=== PATIENT | female | born 1950 | race Caucasian/White ===

== ENCOUNTER 2020-04-05 09:23 | Inpatient (IN) | payer MEDICARE, SELFPAY ==
[2020-04-05] VITALS (12 sets, daily range): BP systolic 113–140; BP diastolic 46–77; PULSE 102–117; RESP 18–26; TEMP 36.6–37; O2SAT 88–97; BMI 20.3
--- NOTE | 2020-04-05 09:49 | ECG_ITS ---
Test Reason : SOB Blood Pressure : / mmHG Vent. Rate : 110 BPM Atrial Rate : 110 BPM P-R Int : 156 ms QRS Dur : 070 ms QT Int : 328 ms P-R-T Axes : 074 050 068 degrees QTc Int : 443 ms Sinus tachycardia Biatrial enlargement RSR' pattern in V1 Abnormal ECG When compared with ECG of 16-AUG-2019 11:55, No significant change was found Referred By: Naila Bob Electronically Signed By:RENEE MARTINEZ MD
--- NOTE | 2020-04-05 09:49 | XR_ITS ---
EXAMINATION: XR CHEST CLINICAL INFORMATION: Shortness of breath COMPARISON: Previous chest x-ray and CT scan most recent July 2019 TECHNIQUE: Frontal view of the chest was obtained. FINDINGS: The cardiac and mediastinal contours are stable. There are emphysematous changes. There is airspace disease at the right lung base suggestive of a pneumonia. There are increased markings seen in the left upper lung overlying the inferior left scapula that appear similar to previous exams and may represent chronic changes. There is no pleural effusion or pneumothorax. There is curvature of the lower thoracic spine to the right. IMPRESSION: Airspace disease at the right lung base suggestive of pneumonia.
[2020-04-05] MEDS: Magnesium Sulfate/H2O 2 GM/50 ML PIGGYBACK IV (10:00)
[2020-04-05] MEDS: methylPREDNISolone Sod Succ/PF 125 MG/2 ML VIAL IVPUSH (10:00)
--- NOTE | 2020-04-05 10:00 | ED_ITS ---
HPI - SOB/Dyspnea General Chief Complaint: Dyspnea Stated Complaint: flu symptoms Time Seen by Provider: 04/05/20 09:35 Source: patient Mode of arrival: ambulatory Limitations: no limitations History of Present Illness HPI Narrative: 69-year-old female with a past medical history of depression, COPD, history of polysubstance abuse/alcohol use here with shortness of breath for the last week with productive cough with brown sputum, body aches, chills, subjective fevers. Denies sick contact or recent travel. MD elicited complaint: shortness of breath, cough and pain with inspiration Pertinent past history: COPD Onset (ago): week(s) ( One week) Timing: constant Severity: moderate Exacerbating factors: lying flat, exertion, movement and coughing Relieving factors: oxygen and rest Known history of: COPD Associated symptoms: fever, cough and sputum production Treatment prior to arrival: none Related Data Previous Rx's Medication Instructions Recorded quetiapine 50 mg tablet 50 mg PO BEDTIME #30 tab 03/29/20 albuterol sulfate 90 mcg/actuation 2 puff INHALATION Q4H PRN #18 g 03/31/20 aerosol inhaler buprenorphine 8 mg-naloxone 2 mg 2 film SUBLINGUAL DAILY 5 Days #10 04/01/20 sublingual film ea Allergies Allergy/AdvReac Type Severity Reaction Status Date / Time No Known Allergies Allergy Unverified 03/10/20 19:47 [No Known Allergies*] Review of Systems Review of Systems: Yes all other systems are reviewed and are negative Constitutional: Constitutional: Reports no additional constitutional complaints, Reports body ache(s), Reports chills, Reports fever(s), Denies headache(s) and Denies weakness Eyes: Eyes: Reports no additional eye complaints and Denies change in vision ENT: Reports system reviewed and no additional complaints, except as documented, Denies dizziness, Denies headache(s), Denies nasal congestion, Denies nasal discharge and Denies neck pain Cardiovascular: Cardiovascular: Reports no additional cardiovascular complaints, Reports chest pain ( pain with deep breathing), Denies leg edema, Reports dyspnea and Reports dyspnea on exertion Respiratory: Respiratory: Reports no additional respiratory complaints, Reports cough, Reports dyspnea and Reports dyspnea on exertion Gastrointestinal: Gastrointestinal: Reports no additional gastrointestinal complaints, Denies abdominal pain, Denies diarrhea, Denies nausea and Denies vomiting Genitourinary: Genitourinary: Reports no additional female genitourinary complaints and Denies urinary incontinence Musculoskeletal: Musculoskeletal: Reports no additional musculoskeletal complaints, Denies back pain, Denies arthralgias, Denies joint swelling, Denies neck pain, Denies numbness and Denies tingling Integumentary/Breasts: Skin/Breast: Reports system reviewed and no additional complaints, except as docu and Denies rash Neurologic: Reports system reviewed and no additional complaints, except as documented, Denies Abnormal speech present, Denies dizziness, Denies headache(s), Denies numbness, Denies tingling and Denies weakness [facility] Past Medical History Attestation statement: The following information was validated with the patient. Source: nursing notes reviewed Medical History (Updated 04/05/20 @ 12:51 by Inga Post NP) Breast cancer Chronic pain COPD (chronic obstructive pulmonary disease) Depression Fibromyalgia Substance abuse Surgical History (Updated 04/05/20 @ 12:47 by Inga Post NP) H/O mastectomy Social History Social History (Updated 04/05/20 @ 12:49 by Inga Post NP) Alcohol intake: current Smoking Status: Current every day smoker Packs Per Day: 1 Cigarettes Per Day: 20.0 Substance Use Type: Heroin and Other Substance Use Type Other:: fentanyl Advance Directives: Yes Advance Directives Information Provided: Yes Advance Directives on File: No Physical Exam Vital Signs: Vital Signs: Vital Signs Temp Pulse Resp BP Pulse Ox 04/05/20 12:39 98.5 F 112 H 19 132/46 L 04/05/20 11:28 117 H 25 H 128/46 L 97 04/05/20 09:35 98.6 F 117 H 26 H 114/62 90 L Body Mass Index 20.3 Const: Other: sitting upright on the bed, leaning forward General: cooperative, healthy appearing, comfortable and in distress ( mild increase work of breathing, speaking short sentences) Orientation/consciousness: patient oriented x3 Limitations: no limitations HENMT: Head: Yes normal to inspection Ears: hearing grossly normal bilaterally General nose exam: Normal external nose present Face and sinus: Yes normal facial exam Mouth: Normal oral and palatal mucosa present Throat: Yes posterior oropharynx normal Eyes: General: appearance normal, both eyes and all related structures Pupils: Equal, round and reactive pupils present Neck: Neck: Yes normal visual inspection Chest: Chest palpation & inspection: normal inspection of the chest Resp: Other: expiratory wheezing bilaterally with diminished breath sounds in the bases posteriorly Effort & Inspection: normal respiratory effort Auscultation: clear to auscultation bilaterally Cardio: Rate: tachycardic Rhythm: regular rhythm Peripheral pulses: Peripheral pulses 2+ throughout GI: Inspection: Yes normal to inspection Palpation (GI): Soft to palpation and nontender Auscultation: normal bowel sounds Back/Spine/Pelvis: Thoracic/Lumbar Spine: thoracic and lumbar spine normal to inspection Skin: General skin exam: no rashes or lesions noted Neuro: General: patient oriented x3, no focal motor deficits and normal sensation to monofilament Cranial nerves: Yes Equal, round and reactive pupils present Cognition (Neuro): normal cognition Speech: No Abnormal speech present Gait exam (Neuro): Normal gait present Motor exam (neuro): 5/5 motor strength present throughout Extrem: General: Yes normal to inspection Course Course Course Narrative: 69-year-old female with past medical history of COPD and polysubstance abuse here with flu-like symptoms including shortness of breath for the last week. On arrival patient has a room air saturation of 90% and is tachycardic with a respiratory rate in the 20s. Will need chest x-ray, labs including blood cultures/lactic acid, EKG, Respiratory panel including COVID testing, albuterol/solumedrol/magnesium. 1045- Chest x-ray consistent with a pneumonia. At this time infection suspected. Antibiotics ordered. 1145- Labs show a leukocytosis. Normal lactic acid. Patient continues to be tachypneic with a room air saturation 89-90%. She will need admission. Discussed with Inga ALLEN hospitalist who requested ABG. Request respiratory panel and rapid COVID swab prior to admission. 1300-No hypercarbia on ABG. Patient maintaining oxgyen saturation on 2LNC. Respiratory panel +rhinovirus, covid negative. Accepted admission to [facility] [place]. MDM - SOB/Dyspnea MDM Narrative Medical decision making narrative: SOB with flu liked symptoms x 1 week. Considered COPD exacerbation, viral infection (COVID), PNA, ACS, CHF. 1300- Chest x-ray consistent with pneumonia. Also likely COPD exacerbation with viral panel positive for rhinovirus. Less likely ACS with negative troponin and unremarkable EKG. Less likely CHF with mildly elevated BNP with no clinical signs or symptoms of fluid overload. Lab Data Result diagrams: 04/05/20 10:48 04/05/20 10:48 Labs: Lab Results 04/05/20 04/05/20 04/05/20 Range/Units 10:47 10:48 10:48 WBC 21.3 H (4.8-10.8) X10*3/uL RBC 4.28 (4.20-5.50) X10*6/uL Hgb 12.7 (12.0-16.0) g/dl Hct 39.7 (37-47) % MCV 92.8 (80-98) fL MCH 29.7 (27.0-33.0) pg MCHC 32.0 (31.0-35.0) g/dl RDW 14.8 (11.0-16.0) % Plt Count 257 (160-400) X10*3/uL MPV 8.4 L (9.4-12.3) fL Immature Gran % (Auto) 0.7 H (0.0-0.4) % Neut % (Auto) 65.9 (45-73) % Lymph % (Auto) 24.6 (20-40) % [place] % (Auto) 8.5 (2-11) % Eos % (Auto) 0.2 (0-4) % Baso % (Auto) 0.1 (0-2) % Lymph # (Auto) 5.3 H (1.2-4.9) X10*3/uL [place] # (Auto) 1.8 H (0.1-1.2) X10*3/uL Eos # (Auto) 0.1 (0.0-0.4) X10*3/uL Baso # (Auto) 0.0 (0.0-0.2) X10*3/uL Abs Immat Gran (auto) 0.14 H (0.00-0.03) X10*3/uL Absolute Neuts (auto) 14.0 H (2.0-8.3) X10*3/uL Absolute Nucleated RBC 0.000 (0.0-0.012) X10*3/uL Nucleated RBC % (auto) 0.0 (0.0-0.2) /100WBC Smear Tech's Comments VERIFIED PT 12.4 (10.8-13.0) SEC INR 1.0 (0.9-1.1) ABG pH (7.35-7.45) ABG pCO2 (32-45) mmhg ABG pO2 (83-108) mmhg ABG HCO3 (22-26) mmol/l ABG O2 Saturation % ABG Base Excess Oxygen Given Sodium (135-145) mmol/L Potassium (3.3-5.1) mmol/l Chloride (96-108) mmol/L Carbon Dioxide (22-29) mmol/L Anion Gap (12-20) BUN (9-16) mg/dL Creatinine (0.5-1.4) mg/dL Estim Creat Clear Calc Estimated GFR Random Glucose (60-115) mg/dL Lactic Acid 0.6 (0.5-2.0) mmol/L Calcium (8.4-10.2) mg/dL Magnesium (1.6-2.6) mg/dL Total Bilirubin (0.0-1.0) mg/dL Direct Bilirubin (0.0-0.5) mg/dL AST (5-31) U/L ALT (0-31) U/L Alkaline Phosphatase (39-117) U/L Troponin I High Sens (<3.5-17.0) ng/L B-Natriuretic Peptide (<100) pg/mL Total Protein (6.5-8.0) g/dL Albumin (3.5-5.0) g/dL Urine Color Urine Appearance Urine pH (5.0-8.0) Ur Specific [place] (1.005-1.025) Urine Protein (NEG-TRACE) MG/DL Urine Glucose (UA) (NEG) MG/DL Urine Ketones (NEG) MG/DL Urine Blood (NEG) Urine Nitrite (NEG) Ur Leukocyte Esterase (NEG) Urine RBC (0) /HPF Urine WBC (0-4) /HPF Ur Squamous Epith Cells /LPF Urine Bacteria /LPF Respiratory Panel Zee Adenovirus (Rapid PCR) (Not Detect.) B.pert (TEM-PCR) (Not Detect.) B.parapertussis DNA PCR (Not Detect.) C. pneumoniae DNA (PCR) (Not Detect.) Coronavirus OC43 (PCR) (Not Detect.) Coronavirus HKU1 (PCR) (Not Detect.) Coronavirus 229E (PCR) (Not Detect.) Coronavirus NL63 (PCR) (Not Detect.) Human Metapneumovir PCR (Not Detect.) Influenza A (RT-PCR) (Not Detect.) Influenza B (RT-PCR) (Not Detect.) M. pneumoniae (PCR) (Not Detect.) Parainfluenza 1 (PCR) (Not Detect.) Parainfluenza 2 (PCR) (Not Detect.) Parainfluenza 3 (PCR) (Not Detect.) Parainfluenza 4 (PCR) (Not Detect.) RSV (PCR) (Not Detect.) Entero/Rhino (PCR) (Not Detect.) SARS-CoV-2 RNA (RT-PCR) (Not Detect.) 04/05/20 04/05/20 04/05/20 Range/Units 10:48 10:48 11:38 WBC (4.8-10.8) X10*3/uL RBC (4.20-5.50) X10*6/uL Hgb (12.0-16.0) g/dl Hct (37-47) % MCV (80-98) fL MCH (27.0-33.0) pg MCHC (31.0-35.0) g/dl RDW (11.0-16.0) % Plt Count (160-400) X10*3/uL MPV (9.4-12.3) fL Immature Gran % (Auto) (0.0-0.4) % Neut % (Auto) (45-73) % Lymph % (Auto) (20-40) % [place] % (Auto) (2-11) % Eos % (Auto) (0-4) % Baso % (Auto) (0-2) % Lymph # (Auto) (1.2-4.9) X10*3/uL [place] # (Auto) (0.1-1.2) X10*3/uL Eos # (Auto) (0.0-0.4) X10*3/uL Baso # (Auto) (0.0-0.2) X10*3/uL Abs Immat Gran (auto) (0.00-0.03) X10*3/uL Absolute Neuts (auto) (2.0-8.3) X10*3/uL Absolute Nucleated RBC (0.0-0.012) X10*3/uL Nucleated RBC % (auto) (0.0-0.2) /100WBC Smear Tech's Comments PT (10.8-13.0) SEC INR (0.9-1.1) ABG pH (7.35-7.45) ABG pCO2 (32-45) mmhg ABG pO2 (83-108) mmhg ABG HCO3 (22-26) mmol/l ABG O2 Saturation % ABG Base Excess Oxygen Given Sodium 134 L (135-145) mmol/L Potassium 4.2 (3.3-5.1) mmol/l Chloride 101 (96-108) mmol/L Carbon Dioxide 24 (22-29) mmol/L Anion Gap 13 (12-20) BUN 23 H (9-16) mg/dL Creatinine 0.93 (0.5-1.4) mg/dL Estim Creat Clear Calc 46.3 Estimated GFR 60 Random Glucose 116 H (60-115) mg/dL Lactic Acid (0.5-2.0) mmol/L Calcium 8.6 (8.4-10.2) mg/dL Magnesium 2.9 H (1.6-2.6) mg/dL Total Bilirubin 0.5 (0.0-1.0) mg/dL Direct Bilirubin 0.2 (0.0-0.5) mg/dL AST 18 (5-31) U/L ALT 15 (0-31) U/L Alkaline Phosphatase 169 H (39-117) U/L Troponin I High Sens < 3.5 (<3.5-17.0) ng/L B-Natriuretic Peptide 118 H (<100) pg/mL Total Protein 6.6 (6.5-8.0) g/dL Albumin 3.4 L (3.5-5.0) g/dL Urine Color YELLOW Urine Appearance CLOUDY Urine pH 5.5 (5.0-8.0) Ur Specific [place] 1.010 (1.005-1.025) Urine Protein 1+ H (NEG-TRACE) MG/DL Urine Glucose (UA) NEG (NEG) MG/DL Urine Ketones NEG (NEG) MG/DL Urine Blood 2+ H (NEG) Urine Nitrite POS H (NEG) Ur Leukocyte Esterase 2+ H (NEG) Urine RBC 1-4 (0) /HPF Urine WBC 50-75 H (0-4) /HPF Ur Squamous Epith Cells TRACE /LPF Urine Bacteria 3+ /LPF Respiratory Panel Zee Adenovirus (Rapid PCR) (Not Detect.) B.pert (TEM-PCR) (Not Detect.) B.parapertussis DNA PCR (Not Detect.) C. pneumoniae DNA (PCR) (Not Detect.) Coronavirus OC43 (PCR) (Not Detect.) Coronavirus HKU1 (PCR) (Not Detect.) Coronavirus 229E (PCR) (Not Detect.) Coronavirus NL63 (PCR) (Not Detect.) Human Metapneumovir PCR (Not Detect.) Influenza A (RT-PCR) (Not Detect.) Influenza B (RT-PCR) (Not Detect.) M. pneumoniae (PCR) (Not Detect.) Parainfluenza 1 (PCR) (Not Detect.) Parainfluenza 2 (PCR) (Not Detect.) Parainfluenza 3 (PCR) (Not Detect.) Parainfluenza 4 (PCR) (Not Detect.) RSV (PCR) (Not Detect.) Entero/Rhino (PCR) (Not Detect.) SARS-CoV-2 RNA (RT-PCR) (Not Detect.) 04/05/20 04/05/20 Range/Units 11:38 11:59 WBC (4.8-10.8) X10*3/uL RBC (4.20-5.50) X10*6/uL Hgb (12.0-16.0) g/dl Hct (37-47) % MCV (80-98) fL MCH (27.0-33.0) pg MCHC (31.0-35.0) g/dl RDW (11.0-16.0) % Plt Count (160-400) X10*3/uL MPV (9.4-12.3) fL Immature Gran % (Auto) (0.0-0.4) % Neut % (Auto) (45-73) % Lymph % (Auto) (20-40) % [place] % (Auto) (2-11) % Eos % (Auto) (0-4) % Baso % (Auto) (0-2) % Lymph # (Auto) (1.2-4.9) X10*3/uL [place] # (Auto) (0.1-1.2) X10*3/uL Eos # (Auto) (0.0-0.4) X10*3/uL Baso # (Auto) (0.0-0.2) X10*3/uL Abs Immat Gran (auto) (0.00-0.03) X10*3/uL Absolute Neuts (auto) (2.0-8.3) X10*3/uL Absolute Nucleated RBC (0.0-0.012) X10*3/uL Nucleated RBC % (auto) (0.0-0.2) /100WBC Smear Tech's Comments PT (10.8-13.0) SEC INR (0.9-1.1) ABG pH 7.25 L (7.35-7.45) ABG pCO2 56 H (32-45) mmhg ABG pO2 63 L (83-108) mmhg ABG HCO3 24 (22-26) mmol/l ABG O2 Saturation 91.1 % ABG Base Excess -3.7 Oxygen Given . Sodium (135-145) mmol/L Potassium (3.3-5.1) mmol/l Chloride (96-108) mmol/L Carbon Dioxide (22-29) mmol/L Anion Gap (12-20) BUN (9-16) mg/dL Creatinine (0.5-1.4) mg/dL Estim Creat Clear Calc Estimated GFR Random Glucose (60-115) mg/dL Lactic Acid (0.5-2.0) mmol/L Calcium (8.4-10.2) mg/dL Magnesium (1.6-2.6) mg/dL Total Bilirubin (0.0-1.0) mg/dL Direct Bilirubin (0.0-0.5) mg/dL AST (5-31) U/L ALT (0-31) U/L Alkaline Phosphatase (39-117) U/L Troponin I High Sens (<3.5-17.0) ng/L B-Natriuretic Peptide (<100) pg/mL Total Protein (6.5-8.0) g/dL Albumin (3.5-5.0) g/dL Urine Color Urine Appearance Urine pH (5.0-8.0) Ur Specific [place] (1.005-1.025) Urine Protein (NEG-TRACE) MG/DL Urine Glucose (UA) (NEG) MG/DL Urine Ketones (NEG) MG/DL Urine Blood (NEG) Urine Nitrite (NEG) Ur Leukocyte Esterase (NEG) Urine RBC (0) /HPF Urine WBC (0-4) /HPF Ur Squamous Epith Cells /LPF Urine Bacteria /LPF Respiratory Panel Zee See Note Adenovirus (Rapid PCR) Not Detected (Not Detect.) B.pert (TEM-PCR) Not Detected (Not Detect.) B.parapertussis DNA PCR Not Detected (Not Detect.) C. pneumoniae DNA (PCR) Not Detected (Not Detect.) Coronavirus OC43 (PCR) Not Detected (Not Detect.) Coronavirus HKU1 (PCR) Not Detected (Not Detect.) Coronavirus 229E (PCR) Not Detected (Not Detect.) Coronavirus NL63 (PCR) Not Detected (Not Detect.) Human Metapneumovir PCR Not Detected (Not Detect.) Influenza A (RT-PCR) Not Detected (Not Detect.) Influenza B (RT-PCR) Not Detected (Not Detect.) M. pneumoniae (PCR) Not Detected (Not Detect.) Parainfluenza 1 (PCR) Not Detected (Not Detect.) Parainfluenza 2 (PCR) Not Detected (Not Detect.) Parainfluenza 3 (PCR) Not Detected (Not Detect.) Parainfluenza 4 (PCR) Not Detected (Not Detect.) RSV (PCR) Not Detected (Not Detect.) Entero/Rhino (PCR) Detected A (Not Detect.) SARS-CoV-2 RNA (RT-PCR) Not Detected (Not Detect.) ECG Data Attestation: I personally reviewed and interpreted this ECG as follows: ECG interpretation date: 04/05/20 ECG interpretation time: 09:51 Prior ECG tracings: not available for review Interpretation: sinus tachycardia with a rate of 110. normal p.r.. Normal QRS. Normal QT. NO ST changes Discharge Plan Discharge Clinical Impression: COPD (chronic obstructive pulmonary disease), Pneumonia, Leukocytosis, Hypoxia Patient Disposition: Admitted As Inpatient
[2020-04-05] MEDS: Albuterol/Iprat 2.5/0.5MG 3 ML AMPUL.NEB INHALE ×2 (10:11→19:48)
[2020-04-05] MEDS: LORazepam 2 MG/ML VIAL 0.5 MG IVPUSH (10:44)
[2020-04-05] MEDS: 0.9 % Sodium Chloride 1,000 ML 999 ML IVCONT (10:44)
[2020-04-05 11:04] LABS: Prothrombin Time 12.4 SEC (10.8-13.0)
[2020-04-05 11:07] LABS: Basophils Percent Auto 0.1 % (0-2); Eosinophils Absolute Auto 0.1 X10*3/uL (0.0-0.4); Eosinophils Percent Auto 0.2 % (0-4); Hematocrit 39.7 % (37-47); Hemoglobin 12.7 g/dl (12.0-16.0); Imm Gran Abs Auto 0.14 X10*3/uL (0.00-0.03); Imm Gran Pct Auto 0.7 % (0.0-0.4); Lymphocytes Absolute Auto 5.3 X10*3/uL (1.2-4.9); Lymphocytes Percent Auto 24.6 % (20-40); MANUAL DIFF FLAG SCAN; Mean Corpuscular Hemoglobin 29.7 pg (27.0-33.0); Mean Corpuscular Volume 92.8 fL (80-98); Mean Platelet Volume 8.4 fL (9.4-12.3); Monocytes Absolute Auto 1.8 X10*3/uL (0.1-1.2); Monocytes Percent Auto 8.5 % (2-11); Neutrophils Percent Auto 65.9 % (45-73); Platelet Count 257 X10*3/uL (160-400); Red Blood Count 4.28 X10*6/uL (4.20-5.50); Red Cell Distribution Width 14.8 % (11.0-16.0); SCAN SMEAR FLAG 1; White Blood Count 21.3 X10*3/uL (4.8-10.8)
[2020-04-05 11:18] LABS: Lactic Acid 0.6 mmol/L (0.5-2.0)
[2020-04-05 11:23] LABS: Alanine Aminotransferase 15 U/L (0-31); Albumin Level 3.4 g/dL (3.5-5.0); Alkaline Phosphatase 169 U/L (39-117); Anion Gap 13 (12-20); Aspartate Amino Transferase 18 U/L (5-31); Bilirubin Direct 0.2 mg/dL (0.0-0.5); Bilirubin Total 0.5 mg/dL (0.0-1.0); Blood Urea Nitrogen 23 mg/dL (9-16); Calcium 8.6 mg/dL (8.4-10.2); Carbon Dioxide 24 mmol/L (22-29); Chloride 101 mmol/L (96-108); Creatinine Clr Calc Pharmacy 46.3; Estimated Glomerular Filt Rate 60; Glucose Random 116 mg/dL (60-115); Magnesium 2.9 mg/dL (1.6-2.6); Potassium 4.2 mmol/l (3.3-5.1); Sodium 134 mmol/L (135-145); Total Protein 6.6 g/dL (6.5-8.0)
[2020-04-05] MEDS: cefTRIAXone sodium 2 GM in 0.9 % Sodium Chloride 50 ML IV (11:23)
[2020-04-05 11:29] LABS: B Type Natriuretic Peptide 118 pg/mL (<100); Troponin-I High Sensitivity < 3.5 ng/L (<3.5-17.0)
[2020-04-05 11:30] LABS: SLIDE REVIEW VERIFIED
[2020-04-05] MEDS: Azithromycin 500 MG in 0.9 % Sodium Chloride 250 ML 250 MG IV (11:39)
[2020-04-05 11:53] LABS: Adenovirus PCR Not Detected (Not Detect.); Bordetella parapertussis PCR Not Detected (Not Detect.); Bordetella pertussis PCR Not Detected (Not Detect.); Chlamydia pneumoniae PCR Not Detected (Not Detect.); Coronavirus 229E PCR Not Detected (Not Detect.); Coronavirus HKU1 PCR Not Detected (Not Detect.); Coronavirus NL63 PCR Not Detected (Not Detect.); Coronavirus OC43 PCR Not Detected (Not Detect.); Human metapneumovirus PCR Not Detected (Not Detect.); Influenza A PCR Not Detected (Not Detect.); Influenza B PCR Not Detected (Not Detect.); Mycoplasma pneumoniae PCR Not Detected (Not Detect.); Parainfluenza 1 PCR Not Detected (Not Detect.); Parainfluenza 2 PCR Not Detected (Not Detect.); Parainfluenza 3 PCR Not Detected (Not Detect.); Parainfluenza 4 PCR Not Detected (Not Detect.); RSV PCR Not Detected (Not Detect.); SARS-CoV-2 PCR Not Detected (Not Detect.)
[2020-04-05 11:58] LABS: Glucose Urine UA NEG (NEG); Leukocyte Esterase Urine 2+ (NEG); Nitrite Urine POS (NEG); PH 5.5 (5.0-8.0); Urine Blood 2+ (NEG); Urine Ketones NEG (NEG); Urine Protein 1+ MG/DL (NEG-TRACE)
[2020-04-05 12:02] LABS: Appearance Urine CLOUDY; Color Urine YELLOW
[2020-04-05 12:19] LABS: ABG PCO2 56 mmhg (32-45); Base Excess ABG -3.7; HCO3 ABG 24 mmol/l (22-26); Oxygen Saturation ABG 91.1 %; PO2 ABG 63 mmhg (83-108); pH ABG 7.25 (7.35-7.45)
[2020-04-05 12:30] LABS: WBC Urine 50-75 /HPF (0-4)
[2020-04-05 12:31] LABS: Bacteria Urine 3+ /LPF; Squamous Epithelial Cell Urine TRACE /LPF
--- NOTE | 2020-04-05 12:38 | P.HPIM_ITS ---
History of Present Illness Date of Service: 04/05/20 <Inga Post NP - Last Filed: 04/05/20 14:34> Chief Complaint: Shortness of breath <Inga Post NP - Last Filed: 04/05/20 14:34> 69 year old women presenting to the ED with increased shortness of breath over the last week. She reported cough with brown phlegm. She denied fever, chills, nausea, vomiting, diarrhea. She also reported some left-sided chest pain that was sharp in nature without any radiation or other associated symptoms that would come and go over the last several days. She denied any recent illness, sick contacts although she lives in a rooming house. She continues to smoke a pack cigarettes a day. She has a history of substance abuse and denies that she is using actively, is currently on Suboxone. Chest x-ray showed consolidation to right lung suggestive of pneumonia. She was noted to be tachycardic, white blood cell count 21.3. ABG was obtained which showed pH 7.25/56/63/24 with lowest oxygen saturation of 90%. Urinalysis was positive for UTI. She was given a dose of Solu-Medrol, albuterol, lorazepam, ceftriaxone, azithromycin and 1 L of IV fluid in the ER. She will be admitted for further management and treatment of community-acquired pneumonia, acute respiratory failure related to COPD exacerbation. <Inga Post NP - Last Filed: 04/05/20 14:34> Review of Systems Review of Systems: Denies any recent fever chills or decrease in appetite respiratory see HPI cardiovascular see HPI gastrointestinal denies any dysphagia abdominal pain nausea vomiting or diarrhea genitourinary denies any dysuria frequency or hematuria musculoskeletal denies any joint pain or swelling neuropsych denies any weakness or seizures all other systems reviewed are negative <Inga Post NP - Last Filed: 04/05/20 14:34> [facility] Medical History: Medical History Breast cancer Chronic pain COPD (chronic obstructive pulmonary disease) Depression Fibromyalgia Substance abuse <Inga Post NP - Last Filed: 04/05/20 14:34> Functional capacity: independent ambulation <Inga Post NP - Last Filed: 04/05/20 14:34> Pertinent family history: no cardiac disease <Inga Post NP - Last Filed: 04/05/20 14:34> Surgical History: Surgical History H/O mastectomy <Inga Post NP - Last Filed: 04/05/20 14:34> Social History: Social History Household Members: Family Housing: House Do you presently have visiting nurse or other home services: No Alcohol intake: never Smoking Status: Current every day smoker Tobacco Type: Cigarette Packs Per Day: 1 Cigarettes Per Day: 20.0 Years Smoked: 50 Smoked in Last 30 Days: Yes Patient Interested in Nicotine Replacement: Yes Patient Given Instructions on How to Stop Smoking: No Date Education Initiated: 04/05/20 Second Hand Smoke Exposure: Yes Use of substances other than those prescribed or required for medical reasons: No Substance Use Type: Heroin and Other Substance Use Type Other:: fentanyl Currently Displaying Signs/Symptoms of Drug Intoxication Withdrawal: No Have you been hit, kicked, punched, or otherwise hurt by someone within the past year? If so, by whom?: No Do you feel safe in your current relationship?: No Current Relationship Is there a partner from a previous relationship who is making you feel unsafe now?: No Are you made to feel afraid or neglected: No Advance Directives: Yes Advance Directives Information Provided: Yes Advance Directives on File: No Advance Directives Date on File: 04/05/20 Do you have thoughts of harming others: None Do you have a plan to hurt others: No Plan Recently lost weight without trying: Yes service: No <Inga Post NP - Last Filed: 04/05/20 14:34> Meds Allergies/Adverse reactions: Allergies Allergy/AdvReac Type Severity Reaction Status Date / Time No Known Allergies Allergy Unverified 03/10/20 19:47 [No Known Allergies*] <Inga Post NP - Last Filed: 04/05/20 14:34> Home medications: Home Medications Medication Instructions Recorded Confirmed Type duloxetine 20 mg PO DAILY 04/05/20 04/05/20 History trazodone 50 mg PO BEDTIME PRN 04/05/20 04/05/20 History <Inga Post NP - Last Filed: 04/05/20 14:34> Physical Exam Vital Signs and Narrative: Vital Signs: Last Vital Signs Temp 98.6 F 04/05/20 09:35 Pulse 117 H 04/05/20 11:28 Resp 25 H 04/05/20 11:28 BP 128/46 L 04/05/20 11:28 Pulse Ox 97 04/05/20 11:28 Body Mass Index 20.3 <Inga Post NP - Last Filed: 04/05/20 14:34> Appearing in no acute distress head is normocephalic atraumatic eyes pupils are PERRLA sclera is anicteric mouth throat mucous membranes are intact and moist neck is supple no lymphadenopathy, no JVD noted lung rhonchi, expiratory wheezes heart regular rhythm, tachycardic positive bowel sounds, abdomen is soft, nontender neuro patient is alert x3, no focal deficits <Inga Post NP - Last Filed: 04/05/20 14:34> Results Labs Labs: Laboratory Tests 04/05/20 04/05/20 04/05/20 10:47 10:48 10:48 WBC 21.3 H RBC 4.28 Hgb 12.7 Hct 39.7 MCV 92.8 MCH 29.7 MCHC 32.0 RDW 14.8 Plt Count 257 MPV 8.4 L Immature Gran % (Auto) 0.7 H Neut % (Auto) 65.9 Lymph % (Auto) 24.6 [place] % (Auto) 8.5 Eos % (Auto) 0.2 Baso % (Auto) 0.1 Lymph # (Auto) 5.3 H [place] # (Auto) 1.8 H Eos # (Auto) 0.1 Baso # (Auto) 0.0 Abs Immat Gran (auto) 0.14 H Absolute Neuts (auto) 14.0 H Absolute Nucleated RBC 0.000 Nucleated RBC % (auto) 0.0 Smear Tech's Comments VERIFIED PT 12.4 INR 1.0 ABG pH ABG pCO2 ABG pO2 ABG HCO3 ABG O2 Saturation ABG Base Excess Oxygen Given Sodium Potassium Chloride Carbon Dioxide Anion Gap BUN Creatinine Estim Creat Clear Calc Estimated GFR Random Glucose Lactic Acid 0.6 Calcium Magnesium Total Bilirubin Direct Bilirubin AST ALT Alkaline Phosphatase Troponin I High Sens B-Natriuretic Peptide Total Protein Albumin Urine Color Urine Appearance Urine pH Ur Specific [place] Urine Protein Urine Glucose (UA) Urine Ketones Urine Blood Urine Nitrite Ur Leukocyte Esterase Urine RBC Urine WBC Ur Squamous Epith Cells Urine Bacteria 04/05/20 04/05/20 04/05/20 10:48 10:48 11:38 WBC RBC Hgb Hct MCV MCH MCHC RDW Plt Count MPV Immature Gran % (Auto) Neut % (Auto) Lymph % (Auto) [place] % (Auto) Eos % (Auto) Baso % (Auto) Lymph # (Auto) [place] # (Auto) Eos # (Auto) Baso # (Auto) Abs Immat Gran (auto) Absolute Neuts (auto) Absolute Nucleated RBC Nucleated RBC % (auto) Smear Tech's Comments PT INR ABG pH ABG pCO2 ABG pO2 ABG HCO3 ABG O2 Saturation ABG Base Excess Oxygen Given Sodium 134 L Potassium 4.2 Chloride 101 Carbon Dioxide 24 Anion Gap 13 BUN 23 H Creatinine 0.93 Estim Creat Clear Calc 46.3 Estimated GFR 60 Random Glucose 116 H Lactic Acid Calcium 8.6 Magnesium 2.9 H Total Bilirubin 0.5 Direct Bilirubin 0.2 AST 18 ALT 15 Alkaline Phosphatase 169 H Troponin I High Sens < 3.5 B-Natriuretic Peptide 118 H Total Protein 6.6 Albumin 3.4 L Urine Color YELLOW Urine Appearance CLOUDY Urine pH 5.5 Ur Specific [place] 1.010 Urine Protein 1+ H Urine Glucose (UA) NEG Urine Ketones NEG Urine Blood 2+ H Urine Nitrite POS H Ur Leukocyte Esterase 2+ H Urine RBC 1-4 Urine WBC 50-75 H Ur Squamous Epith Cells TRACE Urine Bacteria 3+ 04/05/20 11:59 WBC RBC Hgb Hct MCV MCH MCHC RDW Plt Count MPV Immature Gran % (Auto) Neut % (Auto) Lymph % (Auto) [place] % (Auto) Eos % (Auto) Baso % (Auto) Lymph # (Auto) [place] # (Auto) Eos # (Auto) Baso # (Auto) Abs Immat Gran (auto) Absolute Neuts (auto) Absolute Nucleated RBC Nucleated RBC % (auto) Smear Tech's Comments PT INR ABG pH 7.25 L ABG pCO2 56 H ABG pO2 63 L ABG HCO3 24 ABG O2 Saturation 91.1 ABG Base Excess -3.7 Oxygen Given . Sodium Potassium Chloride Carbon Dioxide Anion Gap BUN Creatinine Estim Creat Clear Calc Estimated GFR Random Glucose Lactic Acid Calcium Magnesium Total Bilirubin Direct Bilirubin AST ALT Alkaline Phosphatase Troponin I High Sens B-Natriuretic Peptide Total Protein Albumin Urine Color Urine Appearance Urine pH Ur Specific [place] Urine Protein Urine Glucose (UA) Urine Ketones Urine Blood Urine Nitrite Ur Leukocyte Esterase Urine RBC Urine WBC Ur Squamous Epith Cells Urine Bacteria <Inga Post NP - Last Filed: 04/05/20 14:34> Assessment and Plan (1) Acute respiratory failure: Status: Acute <Inga Post NP - Last Filed: 04/05/20 14:34> (2) Community acquired pneumonia: Status: Acute <Inga Post NP - Last Filed: 04/05/20 14:34> (3) COPD exacerbation: Status: Acute <Inga Post NP - Last Filed: 04/05/20 14:34> (4) Sepsis: Status: Acute <Inga Post NP - Last Filed: 04/05/20 14:34> (5) UTI (urinary tract infection): Status: Acute <Inga Post NP - Last Filed: 04/05/20 14:34> 69-year-old woman admitted with sepsis related to community-acquired pneumonia, UTI and COPD exacerbation. Sepsis. Tachycardia, leukocytosis, normal lactic acid. Follow blood cultures. Acute respiratory failure. Multifactorial related to community-acquired pneumonia and COPD exacerbation. Continue treatment as below. Community-acquired pneumonia. Rocephin, azithromycin, continue supplemental oxygen. COPD exacerbation. Duo nebs, Solu-Medrol, supplemental oxygen as needed. Robitussin for cough. UTI. Rocephin. Follow urine culture. Substance abuse history. On Suboxone. Tobacco use. Nicotine replacement. Discussed smoking cessation. Depression. Continue home medications. DVT prophylaxis with Lovenox. Case discussed with Dr. Seaman Full code <Inga Post NP - Last Filed: 04/05/20 14:34>
[2020-04-05 12:52] LABS: Rhino/Enterovirus PCR Detected (Not Detect.)
--- NOTE | 2020-04-05 16:02 | P.EN_ITS ---
Event Note Event Note: Date of service: 04/05/20 Addendum to H and P by mid level I saw and examined the patient and participated in the burkett portion of the E/M service. I agree with the history and exam as documented by NETWORK ASSOCIATE.She comes with SOB, cough. Exam: cachectic, mary wheezes and rhonchi. Patient likely has COPD exa, CAP, negative covid. Will admit for IV Abx and bronchodilators, steroid. Otherwise, I agree with assessment and plan as outlined in the H and P.
--- NOTE | 2020-04-05 16:10 | PC.NURSE ---
cALLING IMC. ROOM STILL HAS A PATIENT IN IT. PT ON FLOOR LIKELT TO LEAVE AROUND [id number]. WAX SPECIALIST AWARE.
--- NOTE | 2020-04-05 16:16 | PC.NURSE ---
coarse wet crackles mary bases with decreased air movement. pt is alert. unlabored resp at rest. skin pwd. st on monitor. awaits transfer to floor
--- NOTE | 2020-04-05 16:20 | PC.NURSE ---
productive dark brown cough noted
--- NOTE | 2020-04-05 17:29 | PC.NURSE ---
rn to rn [facility] on [facility] [place].
[2020-04-05] MEDS: Azithromycin 500 MG TABLET PO (18:45)
[2020-04-05] MEDS: Enoxaparin Sodium 40 MG/0.4 ML SYRINGE SUBCUT (18:46)
[2020-04-05] MEDS: cefTRIAXone sodium 1 GM in 0.9 % Sodium Chloride 50 ML IV (18:48)
[2020-04-05] MEDS: QUEtiapine Fumarate 50 MG TABLET PO (21:12)
[2020-04-05] MEDS: 0.9 % Sodium Chloride Flush 3 ML SYRINGE IVFLUSH ×2 (21:13→23:29)
[2020-04-05] MEDS: Flu Vacc QS2020-21(6mos up)/PF 0.5 ML SYRINGE IM (23:28)
[2020-04-06] VITALS (7 sets, daily range): BP systolic 127–154; BP diastolic 54–82; PULSE 93–105; RESP 19–25; TEMP 35.8–37.2; O2SAT 89–94
[2020-04-06 06:23] LABS: MANUAL DIFF FLAG NO
[2020-04-06 06:46] LABS: Basophils Percent Auto 0.1 % (0-2); Hematocrit 36.1 % (37-47); Hemoglobin 11.6 g/dl (12.0-16.0); Imm Gran Abs Auto 0.08 X10*3/uL (0.00-0.03); Imm Gran Pct Auto 0.6 % (0.0-0.4); Lymphocytes Absolute Auto 3.7 X10*3/uL (1.2-4.9); Mean Corpuscular HGB Conc 32.1 g/dl (31.0-35.0); Mean Corpuscular Hemoglobin 29.7 pg (27.0-33.0); Mean Corpuscular Volume 92.3 fL (80-98); Mean Platelet Volume 9.1 fL (9.4-12.3); Monocytes Absolute Auto 0.4 X10*3/uL (0.1-1.2); Monocytes Percent Auto 3.4 % (2-11); Neutrophils Absolute Auto 8.9 X10*3/uL (2.0-8.3); Neutrophils Percent Auto 67.9 % (45-73); Platelet Count 283 X10*3/uL (160-400); Red Blood Count 3.91 X10*6/uL (4.20-5.50); Red Cell Distribution Width 14.8 % (11.0-16.0); White Blood Count 13.1 X10*3/uL (4.8-10.8)
[2020-04-06 06:59] LABS: Anion Gap 11 (12-20); Blood Urea Nitrogen 30 mg/dL (9-16); Calcium 8.5 mg/dL (8.4-10.2); Carbon Dioxide 28 mmol/L (22-29); Chloride 105 mmol/L (96-108); Creatinine Clr Calc Pharmacy 54.5; Estimated Glomerular Filt Rate > 60; Glucose Fasting 134 mg/dL (60-99); Potassium 4.9 mmol/l (3.3-5.1); Sodium 139 mmol/L (135-145)
[2020-04-06] MEDS: Albuterol/Iprat 2.5/0.5MG 3 ML AMPUL.NEB INHALE ×3 (07:49→16:21)
[2020-04-06] MEDS: DULoxetine HCl 20 MG CAPSULE.DR PO (09:00)
[2020-04-06] MEDS: 0.9 % Sodium Chloride Flush 3 ML SYRINGE IVFLUSH ×3 (09:01→21:18)
[2020-04-06] MEDS: Buprenorphine/Naloxone 8/2 mg FILM 2 FILM SUBLINGUAL (09:01)
[2020-04-06] MEDS: guaiFENesin DM 100/10/5 ML 5 ML SYRUP PO (09:07)
--- NOTE | 2020-04-06 11:19 | HO.PM.IMPN ---
Subjective Subjective Date of Service: 04/06/20 Interval History: Seen in follow up for acute copd exacerbation with PNA.She fees little better than yeser Review of Systems Card: no chest pain GI: No n/v Resp: Muscular/sk: hip pain Physical Exam Vital Signs: Vital Signs: Vital Signs Temp Pulse Resp BP Pulse Ox 04/06/20 07:12 97.1 F 94 20 138/62 91 L 04/06/20 03:22 97.6 F 100 20 144/82 H 94 04/05/20 23:17 98.0 F 108 H 20 113/65 94 04/05/20 20:00 97.8 F 105 H 20 140/56 H 92 04/05/20 18:25 98.6 F 103 H 20 139/61 91 L 04/05/20 17:28 94 04/05/20 16:33 93 04/05/20 16:28 88 L 04/05/20 16:15 98.0 F 102 H 18 120/77 92 04/05/20 14:38 94 04/05/20 12:39 98.5 F 112 H 19 132/46 L 04/05/20 11:28 117 H 25 H 128/46 L 97 Appearing in no acute distress head is normocephalic atraumatic eyes pupils are PERRLA sclera is anicteric mouth throat mucous membranes are intact and moist neck is supple no lymphadenopathy, no JVD noted lung rhonchi, expiratory wheezes--but less than yesterday heart regular rhythm, tachycardic positive bowel sounds, abdomen is soft, nontender neuro patient is alert x3, no focal deficits Objective Data Current Medications Generic Name Dose Route Start Last Admin Trade Name Amira PRN Reason Stop Dose Admin Acetaminophen 650 mg 04/05/20 18:25 Acetaminophen 325 Mg Tablet PO Q6H PRN Pain, Mild (Pain Scale 1-3) Albuterol/Ipratropium 3 ml 04/05/20 18:25 04/06/20 11:16 Albuterol/Iprat 2.5/0.5mg 3 Ml Ampul.Neb INHALE 3 ml RQ4H WHILE AWAKE ANDREW Administration Azithromycin 500 mg 04/05/20 18:25 04/05/20 18:45 Azithromycin 500 Mg Tablet PO 500 mg Q24H ANDREW Administration Buprenorphine/Naloxone 2 film 04/06/20 09:00 04/06/20 09:01 Buprenorphine/Naloxone 8/2 Mg Film SUBLINGUAL 2 film DAILY ANDREW Administration Duloxetine HCl 20 mg 04/06/20 09:00 04/06/20 09:00 Duloxetine Hcl 20 Mg Capsule.Dr PO 20 mg DAILY ANDREW Administration Enoxaparin Sodium 40 mg 04/05/20 18:25 04/05/20 18:46 Enoxaparin Sodium 40 Mg/0.4 Ml Syringe SUBCUT 40 mg Q24H ANDREW Administration Guaifenesin/Dextromethorphan 5 ml 04/05/20 18:25 04/06/20 09:07 Guaifenesin Dm 100/10/5 Ml 5 Ml Syrup PO 5 ml Q4H PRN Administration Cough Ceftriaxone Sodium 1 gm/ 50 mls @ 100 mls/hr 04/05/20 18:25 04/05/20 19:41 Sodium Chloride IV Infused Q24H ANDREW Infusion Lorazepam 0.5 mg 04/05/20 10:37 04/05/20 10:44 Lorazepam 2 Mg/Ml Vial IVPUSH 0.5 mg Q2H PRN Administration anxiety/restlessness Methylprednisolone Sodium Succinate 40 mg 04/05/20 18:25 04/06/20 10:25 Methylprednisolone Sod Succ/Pf 40 Mg/Ml Vial IVPUSH 40 mg Q8H ANDREW Administration Ondansetron HCl 4 mg 04/05/20 18:25 Ondansetron Hcl 4 Mg/2 Ml Vial IVPUSH Q8H PRN Nausea and Vomiting Pharmacy Consult 1 each 04/05/20 13:06 Consult Rx Perform Med Rec MISCELLANE ONCE PRN Consult order Quetiapine Fumarate 50 mg 04/05/20 21:00 04/05/20 21:12 Quetiapine Fumarate 50 Mg Tablet PO 50 mg BEDTIME ANDREW Administration Sodium Chloride 3 ml 04/05/20 18:25 04/06/20 09:01 0.9 % Sodium Chloride Flush 3 Ml Syringe IVFLUSH 3 ml QSHIFT ANDREW Administration Trazodone HCl 50 mg 04/05/20 18:25 Trazodone Hcl 50 Mg Tablet PO BEDTIME PRN Sleep Labs CBC & Chem 7: 04/06/20 05:40 04/06/20 05:40 Microbiology Microbiology Results: Microbiology 04/05/20 11:31 Urine clean catch - Clean Catch Midstream Urine Culture - Preliminary Gram negative faiza Assessment and Plan (1) Acute respiratory failure: Status: Acute (2) Community acquired pneumonia: Status: Acute (3) COPD exacerbation: Status: Acute (4) Sepsis: Status: Acute (5) UTI (urinary tract infection): Status: Acute Assessment and Plan: 69-year-old woman admitted with sepsis related to community-acquired pneumonia, UTI and COPD exacerbation. Sepsis. Tachycardia, leukocytosis, normal lactic acid. Follow blood cultures. Acute respiratory failure. Multifactorial related to community-acquired pneumonia and COPD exacerbation. Continue treatment as below. Community-acquired pneumonia. Improving. -continue Rocephin, azithromycin, continue supplemental oxygen as needed COPD exacerbation. Improving but not best -Duo nebs, Solu-Medrol, supplemental oxygen as needed. Robitussin for cough. UTI. Culture growing gram negative faiza -Rocephin. Follow urine culture. Substance abuse history. On Suboxone. Tobacco use. Nicotine replacement. Discussed smoking cessation.
--- NOTE | 2020-04-06 11:22 | MHC.CM.PN ---
unable to vivit pt called and left message for petr ortiz [phone] pts son to complete intake
[2020-04-06 12:24] LABS: Pt Ventilation O2% 2 L
[2020-04-06 12:27] LABS: pH ABG 7.32 (7.35-7.45)
[2020-04-06 12:28] LABS: ABG PCO2 56 mmhg (32-45); Base Excess ABG 1.1; HCO3 ABG 28 mmol/l (22-26); Oxygen Saturation ABG 91.3 %; PO2 ABG 64 mmhg (83-108)
--- NOTE | 2020-04-06 13:04 | MHC.PIE ---
P- Pt more drowsy than before, 02 sat between 89-92% on 2L, increased work of breathing, and RR 25. I- Catrachita BOOTHE. Ordered ABGs, respiratory tx. Continuous o2 monitor put on. E- ABGs: pH- 7.32, pCO2-56, pO2-64, HCO3- 28, O2 sat 91.3. Respiratory recommended bipap. catrachita BOOTHE, will continue to monitor
--- NOTE | 2020-04-06 13:49 | P.CONPL_ITS ---
History of Present Illness History of Present Illness Consult date: 04/06/20 Requesting physician: David Seaman Reason for consult: COPD Chief complaint: flu symptoms Narrative: 69-year-old lady, active 30+ pack-year smoker, with underlying history of COPD admitted on 04/05/2020 with increased shortness of breath over the course of the week preceding her admission. Patient also complains of wheezing and intermittent cough and productive of grayish phlegm. She denies fevers or chills. On ER evaluation she was noted to have exacerbation of underlying COPD with mild respiratory acidosis. She was started on treatment for community-acquired pneumonia and COPD exacerbation and admitted to general medical styles. Pulmonary consultation has been requested. Review of Systems Constitutional: Constitutional: Reports fatigue, Denies headache(s) and Denies weakness Eyes: Eyes: Denies blurry vision and Denies change in vision ENT: Denies dizziness and Denies headache(s) Cardiovascular: Cardiovascular: Denies chest pain at rest, Denies chest pain with activity and Reports dyspnea Respiratory: Respiratory: Reports cough, Reports dyspnea and Reports wheezing Gastrointestinal: Gastrointestinal: Denies constipation and Denies diarrhea Genitourinary: Genitourinary: Denies urinary incontinence and Denies urinary urgency Integumentary/Breasts: Skin/Breast: Denies rash Neurologic: Denies confusion, Denies dizziness, Denies headache(s) and Denies weakness Psychiatric: Psychiatric: Denies confusion Endocrine: Endocrine: Denies cold intolerance, Reports fatigue and Denies heat intolerance Hematologic/Lymphatic: Hematologic/Lymphatic: Denies easy bleeding and Denies easy bruising Allergic/Immunologic: Allergic/Immunologic: Reports wheezing PMFSH Past Medical History Medical History Breast cancer Chronic pain COPD (chronic obstructive pulmonary disease) Depression Fibromyalgia Substance abuse Functional capacity: independent ambulation Surgical History Surgical History H/O mastectomy Social History Social History Household Members: Family Housing: House Do you presently have visiting nurse or other home services: No Alcohol intake: never Smoking Status: Current every day smoker Tobacco Type: Cigarette Packs Per Day: 1 Cigarettes Per Day: 20.0 Years Smoked: 50 Smoked in Last 30 Days: Yes Patient Interested in Nicotine Replacement: Yes Patient Given Instructions on How to Stop Smoking: No Date Education Initiated: 04/05/20 Second Hand Smoke Exposure: Yes Use of substances other than those prescribed or required for medical reasons: No Substance Use Type: Heroin and Other Substance Use Type Other:: fentanyl Currently Displaying Signs/Symptoms of Drug Intoxication Withdrawal: No Have you been hit, kicked, punched, or otherwise hurt by someone within the past year? If so, by whom?: No Do you feel safe in your current relationship?: No Current Relationship Is there a partner from a previous relationship who is making you feel unsafe now?: No Are you made to feel afraid or neglected: No Advance Directives: Yes Advance Directives Information Provided: Yes Advance Directives on File: No Advance Directives Date on File: 04/05/20 Do you have thoughts of harming others: None Do you have a plan to hurt others: No Plan Recently lost weight without trying: Yes service: No Meds Allergies Allergy/AdvReac Type Severity Reaction Status Date / Time No Known Allergies Allergy Unverified 03/10/20 19:47 [No Known Allergies*] Home Medications Medication Instructions Recorded Confirmed Type duloxetine 20 mg PO DAILY 04/05/20 04/05/20 History trazodone 50 mg PO BEDTIME PRN 04/05/20 04/05/20 History Physical Exam Vital Signs: Vital Signs: Vital Signs Temp Pulse Resp BP Pulse Ox 04/06/20 11:42 97.8 F 105 H 25 H 129/54 L 89 L 04/06/20 07:12 97.1 F 94 20 138/62 91 L 04/06/20 03:22 97.6 F 100 20 144/82 H 94 04/05/20 23:17 98.0 F 108 H 20 113/65 94 04/05/20 20:00 97.8 F 105 H 20 140/56 H 92 04/05/20 18:25 98.6 F 103 H 20 139/61 91 L 04/05/20 17:28 94 04/05/20 16:33 93 04/05/20 16:28 88 L 04/05/20 16:15 98.0 F 102 H 18 120/77 92 04/05/20 14:38 94 Body Mass Index 20.3 Const: General: No confusion Orientation/consciousness: patient oriented x3 and No confusion Eyes: Sclerae: sclerae normal EOM: EOMs intact bilaterally Neck: Neck: Yes no lymphadenopathy, Yes trachea midline and Yes supple Resp: Effort & Inspection: normal respiratory effort and no respiratory distress Auscultation: wheezes expiratory wheezes ( Diffusely) Cardio: Rate: regular rate Rhythm: regular rhythm Heart sounds: no gallops, no murmurs and no rubs GI: Palpation (GI): Soft to palpation and Other GI palpation findings present ( Nontender) Auscultation: normal bowel sounds Neuro: General: patient oriented x3 and No confusion Extrem: General: Yes no pedal edema, No clubbing and No cyanosis Results Laboratory Findings CBC and BMP: 04/06/20 05:40 04/06/20 05:40 ABG, PT/INR, D-dimer: ABG ABG pH 7.32 (7.35-7.45) L 04/06/20 12:15 ABG pCO2 56 mmhg (32-45) H 04/06/20 12:15 ABG pO2 64 mmhg (83-108) L 04/06/20 12:15 ABG O2 Saturation 91.3 % 04/06/20 12:15 PT/INR, D-dimer PT 12.4 SEC (10.8-13.0) 04/05/20 10:48 INR 1.0 (0.9-1.1) 04/05/20 10:48 Abnormal lab findings: Abnormal Labs 04/05/20 04/05/20 04/05/20 10:48 10:48 10:48 WBC 21.3 H RBC Hgb Hct MPV 8.4 L Immature Gran % (Auto) 0.7 H Lymph # (Auto) 5.3 H [place] # (Auto) 1.8 H Abs Immat Gran (auto) 0.14 H Absolute Neuts (auto) 14.0 H ABG pH ABG pCO2 ABG pO2 ABG HCO3 Sodium 134 L Anion Gap BUN 23 H Random Glucose 116 H Fasting Glucose Magnesium 2.9 H Alkaline Phosphatase 169 H B-Natriuretic Peptide 118 H Albumin 3.4 L Urine Protein Urine Blood Urine Nitrite Ur Leukocyte Esterase Urine WBC Entero/Rhino (PCR) 04/05/20 04/05/20 04/05/20 11:38 11:38 11:59 WBC RBC Hgb Hct MPV Immature Gran % (Auto) Lymph # (Auto) [place] # (Auto) Abs Immat Gran (auto) Absolute Neuts (auto) ABG pH 7.25 L ABG pCO2 56 H ABG pO2 63 L ABG HCO3 Sodium Anion Gap BUN Random Glucose Fasting Glucose Magnesium Alkaline Phosphatase B-Natriuretic Peptide Albumin Urine Protein 1+ H Urine Blood 2+ H Urine Nitrite POS H Ur Leukocyte Esterase 2+ H Urine WBC 50-75 H Entero/Rhino (PCR) Detected A 04/06/20 04/06/20 04/06/20 05:40 05:40 12:15 WBC 13.1 H RBC 3.91 L Hgb 11.6 L Hct 36.1 L MPV 9.1 L Immature Gran % (Auto) 0.6 H Lymph # (Auto) [place] # (Auto) Abs Immat Gran (auto) 0.08 H Absolute Neuts (auto) 8.9 H ABG pH 7.32 L ABG pCO2 56 H ABG pO2 64 L ABG HCO3 28 H Sodium Anion Gap 11 L BUN 30 H Random Glucose Fasting Glucose 134 H Magnesium Alkaline Phosphatase B-Natriuretic Peptide Albumin Urine Protein Urine Blood Urine Nitrite Ur Leukocyte Esterase Urine WBC Entero/Rhino (PCR) Microbiology: Microbiology 04/05/20 10:47 Blood - Venous Blood Culture - Preliminary No growth after 24 hours. 04/05/20 10:24 Blood - Venous Blood Culture - Preliminary No growth after 24 hours. 04/05/20 11:31 Urine clean catch - Clean Catch Midstream Urine Culture - Preliminary Gram negative faiza Assessment and Plan (1) COPD exacerbation: Status: Acute (2) Community acquired pneumonia: Status: Acute (3) Acute respiratory failure: Status: Acute Impression: 69-year-old lady with underlying COPD admitted with progressive dyspnea of 1 week resulting in acute on chronic hypoxic and hypercapnic respiratory failure secondary to COPD exacerbation and community- acquired pneumonia, recovering slowly. Recommendations: Agree with treatment for community-acquired pneumonia. Cont inue nebulized bronchodilators around the clock and systemic glucocorticoids. Does not require BiPAP support at this time.
[2020-04-06] MEDS: Azithromycin 500 MG TABLET PO (18:42)
[2020-04-06] MEDS: cefTRIAXone sodium 1 GM in 0.9 % Sodium Chloride 50 ML IV (18:43)
[2020-04-06] MEDS: Enoxaparin Sodium 40 MG/0.4 ML SYRINGE SUBCUT (18:43)
[2020-04-06] MEDS: QUEtiapine Fumarate 50 MG TABLET PO (21:18)
[2020-04-07] VITALS (7 sets, daily range): BP systolic 147–158; BP diastolic 63–77; PULSE 88–113; RESP 18–20; TEMP 36.1–37; O2SAT 90–96
[2020-04-07] MEDS: Albuterol/Iprat 2.5/0.5MG 3 ML AMPUL.NEB INHALE ×4 (07:43→19:52)
[2020-04-07] MEDS: Buprenorphine/Naloxone 8/2 mg FILM 2 FILM SUBLINGUAL (08:37)
[2020-04-07] MEDS: 0.9 % Sodium Chloride Flush 3 ML SYRINGE IVFLUSH ×2 (08:38→17:23)
[2020-04-07] MEDS: DULoxetine HCl 20 MG CAPSULE.DR PO (08:38)
--- NOTE | 2020-04-07 09:38 | P.PNIM_ITS ---
Subjective Subjective Date of Service: 04/07/20 Interval History: Seen in follow up for acute copd exacerbation with PNA. She has periods of anxiety and overall still doesn't feel her best Review of Systems Anxious Shortness of breath Physical Exam Vital Signs: Vital Signs: Vital Signs Temp Pulse Resp BP Pulse Ox 04/07/20 07:15 97.7 F 88 18 149/68 H 93 04/07/20 02:57 96.9 F 90 19 149/64 H 91 L 04/06/20 23:03 96.5 F L 93 19 127/57 L 90 L 04/06/20 19:03 97.0 F 100 19 154/65 H 90 L 04/06/20 15:44 98.9 F 104 H 20 148/72 H 93 04/06/20 11:42 97.8 F 105 H 25 H 129/54 L 89 L Body Mass Index 20.3 Appearing in no acute distress head is normocephalic atraumatic eyes pupils are PERRLA sclera is anicteric mouth throat mucous membranes are intact and moist neck is supple no lymphadenopathy, no JVD noted lung rhonchi, expiratory wheezes--but less than yesterday heart regular rhythm, tachycardic positive bowel sounds, abdomen is soft, nontender neuro patient is alert x3, no focal deficits Objective Data Current Medications Generic Name Dose Route Start Last Admin Trade Name Amira PRN Reason Stop Dose Admin Acetaminophen 650 mg 04/05/20 18:25 Acetaminophen 325 Mg Tablet PO Q6H PRN Pain, Mild (Pain Scale 1-3) Albuterol/Ipratropium 3 ml 04/05/20 18:25 04/07/20 07:43 Albuterol/Iprat 2.5/0.5mg 3 Ml Ampul.Neb INHALE 3 ml RQ4H WHILE AWAKE ANDREW Administration Azithromycin 500 mg 04/05/20 18:25 04/06/20 18:42 Azithromycin 500 Mg Tablet PO 500 mg Q24H ANDREW Administration Buprenorphine/Naloxone 2 film 04/06/20 09:00 04/07/20 08:37 Buprenorphine/Naloxone 8/2 Mg Film SUBLINGUAL 2 film DAILY ANDREW Administration Duloxetine HCl 20 mg 04/06/20 09:00 04/07/20 08:38 Duloxetine Hcl 20 Mg Capsule.Dr PO 20 mg DAILY ANDREW Administration Enoxaparin Sodium 40 mg 04/05/20 18:25 04/06/20 18:43 Enoxaparin Sodium 40 Mg/0.4 Ml Syringe SUBCUT 40 mg Q24H ANDREW Administration Guaifenesin/Dextromethorphan 5 ml 04/05/20 18:25 04/06/20 09:07 Guaifenesin Dm 100/10/5 Ml 5 Ml Syrup PO 5 ml Q4H PRN Administration Cough Ceftriaxone Sodium 1 gm/ 50 mls @ 100 mls/hr 04/05/20 18:25 04/06/20 21:20 Sodium Chloride IV Infused Q24H ANDREW Infusion Lorazepam 0.5 mg 04/05/20 10:37 04/05/20 10:44 Lorazepam 2 Mg/Ml Vial IVPUSH 0.5 mg Q2H PRN Administration anxiety/restlessness Methylprednisolone Sodium Succinate 40 mg 04/05/20 18:25 04/07/20 08:38 Methylprednisolone Sod Succ/Pf 40 Mg/Ml Vial IVPUSH 40 mg Q8H ANDREW Administration Ondansetron HCl 4 mg 04/05/20 18:25 Ondansetron Hcl 4 Mg/2 Ml Vial IVPUSH Q8H PRN Nausea and Vomiting Pharmacy Consult 1 each 04/05/20 13:06 Consult Rx Perform Med Rec MISCELLANE ONCE PRN Consult order Quetiapine Fumarate 50 mg 04/05/20 21:00 04/06/20 21:18 Quetiapine Fumarate 50 Mg Tablet PO 50 mg BEDTIME ANDREW Administration Sodium Chloride 3 ml 04/05/20 18:25 04/07/20 08:38 0.9 % Sodium Chloride Flush 3 Ml Syringe IVFLUSH 3 ml QSHIFT ANDREW Administration Trazodone HCl 50 mg 04/05/20 18:25 Trazodone Hcl 50 Mg Tablet PO BEDTIME PRN Sleep Labs CBC & Chem 7: 04/06/20 05:40 04/06/20 05:40 Microbiology Microbiology Results: Microbiology 04/05/20 11:31 Urine clean catch - Clean Catch Midstream Urine Culture - Final Escherichia coli 04/05/20 10:47 Blood - Venous Blood Culture - Preliminary No growth after 24 hours. 04/05/20 10:24 Blood - Venous Blood Culture - Preliminary No growth after 24 hours. Assessment and Plan (1) Acute respiratory failure: Status: Acute (2) Community acquired pneumonia: Status: Acute (3) COPD exacerbation: Status: Acute (4) Sepsis: Status: Acute (5) UTI (urinary tract infection): Status: Acute Assessment and Plan: 69-year-old woman admitted with sepsis related to community-acquired pneumonia, UTI and COPD exacerbation. Sepsis clinically resolved, latest increase WBC due to steroid. Cultures are negative Acute respiratory failure with hypoxia. Multifactorial related to community- acquired pneumonia, advanced COPD with exacerbation. Continue treatment as below. Community-acquired pneumonia. Improving. -continue Rocephin, azithromycin, continue supplemental oxygen as needed COPD exacerbation. Improving but not best -Duo nebs, Solu-Medrol, supplemental oxygen as needed. Robitussin for cough. UTI. E. coli, sensitive to rocephin Substance abuse history. On Suboxone. Tobacco use. Nicotine replacement. Discussed smoking cessation. Anxiety--low dose ativan
[2020-04-07] MEDS: Acetaminophen 325 MG TABLET 650 MG PO ×2 (12:24→17:31)
[2020-04-07] MEDS: guaiFENesin DM 100/10/5 ML 5 ML SYRUP PO (17:23)
[2020-04-07] MEDS: cefTRIAXone sodium 1 GM in 0.9 % Sodium Chloride 50 ML IV (17:23)
[2020-04-07] MEDS: Azithromycin 500 MG TABLET PO (17:23)
[2020-04-07] MEDS: Enoxaparin Sodium 40 MG/0.4 ML SYRINGE SUBCUT (17:29)
[2020-04-07] MEDS: LORazepam 2 MG/ML VIAL 0.5 MG IVPUSH (19:34)
[2020-04-07] MEDS: traZODone HCL 50 MG TABLET PO (21:33)
[2020-04-07] MEDS: QUEtiapine Fumarate 50 MG TABLET PO (21:33)
[2020-04-08] VITALS (9 sets, daily range): BP systolic 138–190; BP diastolic 72–91; PULSE 83–113; RESP 18–22; TEMP 36.1–36.9; O2SAT 92–96
[2020-04-08] MEDS: 0.9 % Sodium Chloride Flush 3 ML SYRINGE IVFLUSH ×3 (00:53→17:25)
[2020-04-08] MEDS: Albuterol/Iprat 2.5/0.5MG 3 ML AMPUL.NEB INHALE ×4 (07:45→19:16)
[2020-04-08] MEDS: LORazepam 0.5 MG TABLET 0.25 MG PO (07:58)
[2020-04-08] MEDS: guaiFENesin DM 100/10/5 ML 5 ML SYRUP PO ×2 (07:58→21:13)
[2020-04-08] MEDS: Acetaminophen 325 MG TABLET 650 MG PO (07:58)
[2020-04-08] MEDS: DULoxetine HCl 20 MG CAPSULE.DR PO (07:59)
[2020-04-08] MEDS: Buprenorphine/Naloxone 8/2 mg FILM 2 FILM SUBLINGUAL (07:59)
--- NOTE | 2020-04-08 13:33 | MHC.CM.PN ---
per rounds no dc date at this time pt to be seen by [facility] prior to dc
--- NOTE | 2020-04-08 16:45 | P.PNIM_ITS ---
Subjective Subjective Date of Service: 04/08/20 Interval History: Seen in follow up for acute copd exacerbation with PNA. She feels the same Review of Systems Anxious Shortness of breath Physical Exam Vital Signs: Vital Signs: Vital Signs Temp Pulse Resp BP Pulse Ox 04/08/20 15:14 98.5 F 98 18 168/81 H 92 04/08/20 12:11 97.8 F 98 18 153/72 H 92 04/08/20 08:00 98.0 F 104 H 20 96 04/08/20 03:21 97.8 F 94 20 147/72 H 94 04/07/20 23:57 97.5 F 107 H 20 150/72 H 93 04/07/20 23:14 97.5 F 107 H 20 150/72 H 93 04/07/20 18:53 96.9 F 113 H 19 152/63 H 90 L Body Mass Index 20.3 Appearing in no acute distress head is normocephalic atraumatic eyes pupils are PERRLA sclera is anicteric mouth throat mucous membranes are intact and moist neck is supple no lymphadenopathy, no JVD noted lung rhonchi, expiratory wheezes--but less than yesterday heart regular rhythm, tachycardic positive bowel sounds, abdomen is soft, nontender neuro patient is alert x3, no focal deficits Objective Data Current Medications Generic Name Dose Route Start Last Admin Trade Name José Manuelq PRN Reason Stop Dose Admin Acetaminophen 650 mg 04/05/20 18:25 04/08/20 07:58 Acetaminophen 325 Mg Tablet PO 650 mg Q6H PRN Administration Pain, Mild (Pain Scale 1-3) Albuterol/Ipratropium 3 ml 04/05/20 18:25 04/08/20 15:20 Albuterol/Iprat 2.5/0.5mg 3 Ml Ampul.Neb INHALE 3 ml RQ4H WHILE AWAKE ANDREW Administration Azithromycin 500 mg 04/05/20 18:25 04/07/20 17:23 Azithromycin 500 Mg Tablet PO 500 mg Q24H ANDREW Administration Buprenorphine/Naloxone 2 film 04/06/20 09:00 04/08/20 07:59 Buprenorphine/Naloxone 8/2 Mg Film SUBLINGUAL 2 film DAILY ANDREW Administration Duloxetine HCl 20 mg 04/06/20 09:00 04/08/20 07:59 Duloxetine Hcl 20 Mg Capsule.Dr PO 20 mg DAILY ANDREW Administration Enoxaparin Sodium 40 mg 04/05/20 18:25 04/07/20 17:29 Enoxaparin Sodium 40 Mg/0.4 Ml Syringe SUBCUT 40 mg Q24H ANDREW Administration Guaifenesin/Dextromethorphan 5 ml 04/05/20 18:25 04/08/20 07:58 Guaifenesin Dm 100/10/5 Ml 5 Ml Syrup PO 5 ml Q4H PRN Administration Cough Ceftriaxone Sodium 1 gm/ 50 mls @ 100 mls/hr 04/05/20 18:25 04/07/20 17:54 Sodium Chloride IV Infused Q24H ANDREW Infusion Lorazepam 0.5 mg 04/05/20 10:37 04/07/20 19:34 Lorazepam 2 Mg/Ml Vial IVPUSH 0.5 mg Q2H PRN Administration anxiety/restlessness Lorazepam 0.25 mg 04/07/20 09:54 04/08/20 07:58 Lorazepam 0.5 Mg Tablet PO 0.25 mg Q6H PRN Administration anxiety/restlessness Methylprednisolone Sodium Succinate 40 mg 04/05/20 18:25 04/08/20 10:31 Methylprednisolone Sod Succ/Pf 40 Mg/Ml Vial IVPUSH 40 mg Q8H ANDREW Administration Ondansetron HCl 4 mg 04/05/20 18:25 Ondansetron Hcl 4 Mg/2 Ml Vial IVPUSH Q8H PRN Nausea and Vomiting Pharmacy Consult 1 each 04/05/20 13:06 Consult Rx Perform Med Rec MISCELLANE ONCE PRN Consult order Quetiapine Fumarate 50 mg 04/05/20 21:00 04/07/20 21:33 Quetiapine Fumarate 50 Mg Tablet PO 50 mg BEDTIME ANDREW Administration Sodium Chloride 3 ml 04/05/20 18:25 04/08/20 07:59 0.9 % Sodium Chloride Flush 3 Ml Syringe IVFLUSH 3 ml QSHIFT ANDREW Administration Trazodone HCl 50 mg 04/05/20 18:25 04/07/20 21:33 Trazodone Hcl 50 Mg Tablet PO 50 mg BEDTIME PRN Administration Sleep Labs CBC & Chem 7: 04/06/20 05:40 04/06/20 05:40 Microbiology Microbiology Results: Microbiology 04/05/20 10:47 Blood - Venous Blood Culture - Preliminary No growth after 48 hours. 04/05/20 10:24 Blood - Venous Blood Culture - Preliminary No growth after 48 hours. 04/05/20 11:31 Urine clean catch - Clean Catch Midstream Urine Culture - Final Escherichia coli Assessment and Plan (1) Acute respiratory failure: Status: Acute (2) Community acquired pneumonia: Status: Acute (3) COPD exacerbation: Status: Acute (4) Sepsis: Status: Acute (5) UTI (urinary tract infection): Status: Acute Assessment and Plan: 69-year-old woman admitted with sepsis related to community-acquired pneumonia, UTI and COPD exacerbation. Sepsis clinically resolved, latest increase WBC due to steroid. Cultures are negative Acute respiratory failure with hypoxia. Multifactorial related to community- acquired pneumonia, advanced COPD with exacerbation. better than yesterday Community-acquired pneumonia. Improving. -continue Rocephin, azithromycin, continue supplemental oxygen as needed--change to po tomorrow COPD exacerbation. Improving but not best -Duo nebs, Solu-Medrol to PO prednisone tomorrow, supplemental oxygen as needed. Robitussin for cough. UTI. E. coli, sensitive to rocephin Substance abuse history. On Suboxone. Tobacco use. Nicotine replacement. Discussed smoking cessation. Anxiety--low dose ativan PT eval tomorrow.
[2020-04-08] MEDS: Azithromycin 500 MG TABLET PO (17:25)
[2020-04-08] MEDS: cefTRIAXone sodium 1 GM in 0.9 % Sodium Chloride 50 ML IV (17:25)
[2020-04-08] MEDS: Enoxaparin Sodium 40 MG/0.4 ML SYRINGE SUBCUT (17:25)
[2020-04-08] MEDS: QUEtiapine Fumarate 50 MG TABLET PO (21:13)
[2020-04-09] VITALS (8 sets, daily range): BP systolic 130–186; BP diastolic 60–78; PULSE 89–116; RESP 16–20; TEMP 36.4–36.9; O2SAT 91–98
[2020-04-09] MEDS: 0.9 % Sodium Chloride Flush 3 ML SYRINGE IVFLUSH ×4 (00:43→20:42)
[2020-04-09] MEDS: hydrALAZINE HCl 20 MG/ML VIAL 5 MG IVPUSH (03:00)
--- NOTE | 2020-04-09 07:17 | PC.NURSE ---
vs after hydralazine given 0310 bp 187/98 hr 86, at 320 bp 173/94 hr 84 at 0340 bp 19/85 hr 88 at 0350 bp 165/91 hr 86 at 03136 bp 174/76 hr 85
[2020-04-09] MEDS: Albuterol/Iprat 2.5/0.5MG 3 ML AMPUL.NEB INHALE ×4 (07:21→19:02)
[2020-04-09] MEDS: LORazepam 0.5 MG TABLET 0.25 MG PO (08:08)
[2020-04-09] MEDS: Buprenorphine/Naloxone 8/2 mg FILM 2 FILM SUBLINGUAL (08:09)
[2020-04-09] MEDS: DULoxetine HCl 20 MG CAPSULE.DR PO (08:09)
[2020-04-09 09:16] LABS: Hematocrit 44.8 % (37-47); Hemoglobin 14.5 g/dl (12.0-16.0); Mean Corpuscular HGB Conc 32.4 g/dl (31.0-35.0); Mean Corpuscular Hemoglobin 29.7 pg (27.0-33.0); Mean Corpuscular Volume 91.6 fL (80-98); Mean Platelet Volume 8.2 fL (9.4-12.3); Platelet Count 377 X10*3/uL (160-400); Red Blood Count 4.89 X10*6/uL (4.20-5.50); Red Cell Distribution Width 14.6 % (11.0-16.0); White Blood Count 12.6 X10*3/uL (4.8-10.8)
[2020-04-09 09:24] LABS: Anion Gap 12 (12-20); Blood Urea Nitrogen 46 mg/dL (9-16); Calcium 8.7 mg/dL (8.4-10.2); Carbon Dioxide 32 mmol/L (22-29); Chloride 102 mmol/L (96-108); Creatinine Clr Calc Pharmacy 53.2; Estimated Glomerular Filt Rate > 60; Glucose Random 161 mg/dL (60-115); Potassium 4.8 mmol/l (3.3-5.1); Sodium 141 mmol/L (135-145)
--- NOTE | 2020-04-09 10:51 | ECG_ITS ---
Test Reason : TACHYCARDIA Blood Pressure : / mmHG Vent. Rate : 115 BPM Atrial Rate : 115 BPM P-R Int : 142 ms QRS Dur : 068 ms QT Int : 326 ms P-R-T Axes : 073 042 072 degrees QTc Int : 450 ms Sinus tachycardia Right atrial enlargement Borderline ECG When compared with ECG of 05-APR-2020 09:51, No significant change was found Referred By: Naila Bob Electronically Signed By:RENEE MARTINEZ MD
--- NOTE | 2020-04-09 12:00 | P.PNIM_ITS ---
Subjective Subjective Date of Service: 04/09/20 Interval History: Seen in follow up for acute copd exacerbation with PNA. Feels anxious and still feels sob Review of Systems Card: no chest pain Resp:sob Psych: Anxiety Physical Exam Vital Signs: Vital Signs: Vital Signs Temp Pulse Resp BP Pulse Ox 04/09/20 11:23 97.7 F 116 H 19 130/66 91 L 04/09/20 10:53 109 H 145/76 H 92 04/09/20 07:13 97.5 F 109 H 19 145/76 H 92 04/09/20 03:11 98 F 91 20 160/71 H 98 04/09/20 03:00 89 186/76 H 04/08/20 23:36 98 F 83 20 190/83 H 96 04/08/20 23:16 97 F 113 H 18 138/73 92 04/08/20 20:00 18 04/08/20 19:26 178/88 H 04/08/20 19:10 97.9 F 93 22 H 180/91 H 92 04/08/20 15:14 98.5 F 98 18 168/81 H 92 04/08/20 12:11 97.8 F 98 18 153/72 H 92 Body Mass Index 20.3 Appearing in no acute distress head is normocephalic atraumatic eyes pupils are PERRLA sclera is anicteric mouth throat mucous membranes are intact and moist neck is supple no lymphadenopathy, no JVD noted lung rhonchi, improve air movement, no accessory muscle use heart regular rhythm, tachycardic positive bowel sounds, abdomen is soft, nontender neuro patient is alert x3, no focal deficits Objective Data Current Medications Generic Name Dose Route Start Last Admin Trade Name Freq PRN Reason Stop Dose Admin Acetaminophen 650 mg 04/05/20 18:25 04/08/20 07:58 Acetaminophen 325 Mg Tablet PO 650 mg Q6H PRN Administration Pain, Mild (Pain Scale 1-3) Albuterol/Ipratropium 3 ml 04/05/20 18:25 04/09/20 11:10 Albuterol/Iprat 2.5/0.5mg 3 Ml Ampul.Neb INHALE 3 ml RQ4H WHILE AWAKE ANDREW Administration Azithromycin 500 mg 04/05/20 18:25 04/08/20 17:25 Azithromycin 500 Mg Tablet PO 500 mg Q24H ANDREW Administration Buprenorphine/Naloxone 2 film 04/06/20 09:00 04/09/20 08:09 Buprenorphine/Naloxone 8/2 Mg Film SUBLINGUAL 2 film DAILY ANDREW Administration Duloxetine HCl 20 mg 04/06/20 09:00 04/09/20 08:09 Duloxetine Hcl 20 Mg Capsule.Dr PO 20 mg DAILY ANDREW Administration Enoxaparin Sodium 40 mg 04/05/20 18:25 04/08/20 17:25 Enoxaparin Sodium 40 Mg/0.4 Ml Syringe SUBCUT 40 mg Q24H ANDREW Administration Guaifenesin/Dextromethorphan 5 ml 04/05/20 18:25 04/08/20 21:13 Guaifenesin Dm 100/10/5 Ml 5 Ml Syrup PO 5 ml Q4H PRN Administration Cough Ceftriaxone Sodium 1 gm/ 50 mls @ 100 mls/hr 04/05/20 18:25 04/08/20 18:01 Sodium Chloride IV Infused Q24H ANDREW Infusion Lorazepam 0.5 mg 04/05/20 10:37 04/07/20 19:34 Lorazepam 2 Mg/Ml Vial IVPUSH 0.5 mg Q2H PRN Administration anxiety/restlessness Lorazepam 0.25 mg 04/07/20 09:54 04/09/20 08:08 Lorazepam 0.5 Mg Tablet PO 0.25 mg Q6H PRN Administration anxiety/restlessness Methylprednisolone Sodium Succinate 40 mg 04/05/20 18:25 04/09/20 08:09 Methylprednisolone Sod Succ/Pf 40 Mg/Ml Vial IVPUSH 40 mg Q8H ANDREW Administration Ondansetron HCl 4 mg 04/05/20 18:25 Ondansetron Hcl 4 Mg/2 Ml Vial IVPUSH Q8H PRN Nausea and Vomiting Pharmacy Consult 1 each 04/05/20 13:06 Consult Rx Perform Med Rec MISCELLANE ONCE PRN Consult order Quetiapine Fumarate 50 mg 04/05/20 21:00 04/08/20 21:13 Quetiapine Fumarate 50 Mg Tablet PO 50 mg BEDTIME ANDREW Administration Sodium Chloride 3 ml 04/05/20 18:25 04/09/20 08:09 0.9 % Sodium Chloride Flush 3 Ml Syringe IVFLUSH 3 ml QSHIFT ANDREW Administration Trazodone HCl 50 mg 04/05/20 18:25 04/07/20 21:33 Trazodone Hcl 50 Mg Tablet PO 50 mg BEDTIME PRN Administration Sleep Labs CBC & Chem 7: 04/09/20 08:41 04/09/20 08:41 Microbiology Microbiology Results: Microbiology 04/05/20 10:47 Blood - Venous Blood Culture - Preliminary No growth after 48 hours. 04/05/20 10:24 Blood - Venous Blood Culture - Preliminary No growth after 48 hours. 04/05/20 11:31 Urine clean catch - Clean Catch Midstream Urine Culture - Final Escherichia coli Assessment and Plan (1) Acute respiratory failure: Status: Acute (2) Community acquired pneumonia: Status: Acute (3) COPD exacerbation: Status: Acute (4) Sepsis: Status: Acute (5) UTI (urinary tract infection): Status: Acute Assessment and Plan: 69-year-old woman admitted with sepsis related to community-acquired pneumonia, UTI and COPD exacerbation. Sepsis clinically resolved, latest increase WBC due to steroid. Acute respiratory failure with hypoxia. Multifactorial related to community- acquired pneumonia, advanced COPD with exacerbation. Clinically improving Community-acquired pneumonia. Improving. -continue Rocephin, azithromycin, continue supplemental oxygen as needed. Abx for 7 days COPD exacerbation. Improving but not best -Duo nebs, Solu-Medrol to PO prednisone tomorrow, supplemental oxygen as needed. Robitussin for cough. Will assess for home oxygen before discharge UTI. E. coli, sensitive to rocephin for 5 days Substance abuse history. On Suboxone. Tobacco use. Nicotine replacement. Discussed smoking cessation. Anxiety--low dose ativan Tachycardia--ECG shows sinus tach, ? anxiety related. Monitor and reasssess PT eval recommend STR but patient wants to go home with family, probably discharge in couple of days
[2020-04-09] MEDS: Azithromycin 500 MG TABLET PO (18:10)
[2020-04-09] MEDS: cefTRIAXone sodium 1 GM in 0.9 % Sodium Chloride 50 ML IV (18:11)
[2020-04-09] MEDS: Enoxaparin Sodium 40 MG/0.4 ML SYRINGE SUBCUT (18:11)
[2020-04-09] MEDS: QUEtiapine Fumarate 50 MG TABLET PO (20:42)
[2020-04-09] MEDS: Acetaminophen 325 MG TABLET 650 MG PO (20:42)
[2020-04-10 03:24] VITALS: BP 153/81; PULSE 93; RESP 18; TEMP 36.6; O2SAT 93
[2020-04-10] MEDS: Albuterol/Iprat 2.5/0.5MG 3 ML AMPUL.NEB INHALE (07:18)
[2020-04-10 08:07] VITALS: BP 175/79; PULSE 100; RESP 18; TEMP 36.3; O2SAT 93
[2020-04-10] MEDS: LORazepam 0.5 MG TABLET 0.25 MG PO (08:13)
[2020-04-10] MEDS: DULoxetine HCl 20 MG CAPSULE.DR PO (08:14)
[2020-04-10] MEDS: Buprenorphine/Naloxone 8/2 mg FILM 2 FILM SUBLINGUAL (08:20)
[2020-04-10] MEDS: 0.9 % Sodium Chloride Flush 3 ML SYRINGE IVFLUSH ×3 (08:22→20:15)
--- NOTE | 2020-04-10 08:39 | PC.NURSE ---
P: hr 140s- 180s on tele, sustained for 20 min I:Patient asymptomatic, denies chest pain. Patient receiving breathing treatment. MD notified. MD to change albuterol to xopenex. E: Patient resting comfortably, HR at this time 115.
--- NOTE | 2020-04-10 09:17 | P.PNIM_ITS ---
Subjective Subjective Date of Service: 04/10/20 Interval History: Seen in follow up for acute copd exacerbation with PNA. She is feeling much better today Review of Systems Card: no chest pain resp: No sob, no wheezes Gen: no fever Physical Exam Vital Signs: Vital Signs: Vital Signs Temp Pulse Resp BP Pulse Ox 04/10/20 08:07 97.4 F 100 18 175/79 H 93 04/10/20 03:24 97.8 F 93 18 153/81 H 93 04/09/20 23:31 98 F 102 H 18 138/78 98 04/09/20 20:00 98.5 F 111 H 16 140/60 H 91 L 04/09/20 16:00 97.9 F 101 H 20 146/77 H 94 04/09/20 11:23 97.7 F 116 H 19 130/66 91 L 04/09/20 10:53 109 H 145/76 H 92 Body Mass Index 20.3 Appearing in no acute distress head is normocephalic atraumatic eyes pupils are PERRLA sclera is anicteric mouth throat mucous membranes are intact and moist neck is supple no lymphadenopathy, no JVD noted lung rhonchi, improve air movement, no accessory muscle use heart regular rhythm, tachycardic positive bowel sounds, abdomen is soft, nontender neuro patient is alert x3, no focal deficits Objective Data Current Medications Generic Name Dose Route Start Last Admin Trade Name Freq PRN Reason Stop Dose Admin Acetaminophen 650 mg 04/05/20 18:25 04/09/20 20:42 Acetaminophen 325 Mg Tablet PO 650 mg Q6H PRN Administration Pain, Mild (Pain Scale 1-3) Buprenorphine/Naloxone 2 film 04/06/20 09:00 04/10/20 08:20 Buprenorphine/Naloxone 8/2 Mg Film SUBLINGUAL 2 film DAILY ANDREW Administration Duloxetine HCl 20 mg 04/06/20 09:00 04/10/20 08:14 Duloxetine Hcl 20 Mg Capsule.Dr PO 20 mg DAILY ANDREW Administration Enoxaparin Sodium 40 mg 04/05/20 18:25 04/09/20 18:11 Enoxaparin Sodium 40 Mg/0.4 Ml Syringe SUBCUT 40 mg Q24H ANDREW Administration Guaifenesin/Dextromethorphan 5 ml 04/05/20 18:25 04/08/20 21:13 Guaifenesin Dm 100/10/5 Ml 5 Ml Syrup PO 5 ml Q4H PRN Administration Cough Lorazepam 0.25 mg 04/07/20 09:54 04/10/20 08:13 Lorazepam 0.5 Mg Tablet PO 0.25 mg Q6H PRN Administration anxiety/restlessness Ondansetron HCl 4 mg 04/05/20 18:25 Ondansetron Hcl 4 Mg/2 Ml Vial IVPUSH Q8H PRN Nausea and Vomiting Pharmacy Consult 1 each 04/05/20 13:06 Consult Rx Perform Med Rec MISCELLANE ONCE PRN Consult order Quetiapine Fumarate 50 mg 04/05/20 21:00 04/09/20 20:42 Quetiapine Fumarate 50 Mg Tablet PO 50 mg BEDTIME ANDREW Administration Sodium Chloride 3 ml 04/05/20 18:25 04/10/20 08:22 0.9 % Sodium Chloride Flush 3 Ml Syringe IVFLUSH 3 ml QSHIFT ANDREW Administration Trazodone HCl 50 mg 04/05/20 18:25 04/07/20 21:33 Trazodone Hcl 50 Mg Tablet PO 50 mg BEDTIME PRN Administration Sleep Labs CBC & Chem 7: 04/09/20 08:41 04/09/20 08:41 Microbiology Microbiology Results: Microbiology 04/05/20 10:47 Blood - Venous Blood Culture - Preliminary No growth after 48 hours. 04/05/20 10:24 Blood - Venous Blood Culture - Preliminary No growth after 48 hours. 04/05/20 11:31 Urine clean catch - Clean Catch Midstream Urine Culture - Final Escherichia coli Assessment and Plan (1) Acute respiratory failure: Status: Acute (2) Community acquired pneumonia: Status: Acute (3) COPD exacerbation: Status: Acute (4) Sepsis: Status: Acute (5) UTI (urinary tract infection): Status: Acute Assessment and Plan: 69-year-old woman admitted with sepsis related to community-acquired pneumonia, UTI and COPD exacerbation. Sepsis clinically resolved, latest increase WBC due to steroid. Acute respiratory failure with hypoxia. Multifactorial related to community- acquired pneumonia, advanced COPD with exacerbation. continue to improve Community-acquired pneumonia. Better, no fever -completed 5 days of Azithro -Ceftin for 2 to 3 more days COPD exacerbation. Improved -DC IV solumedrol, add Prednisone 20 daily -Change Duoneb to Xopenex in light of tachycardia. UTI. E. coli, sensitive to Rocephin, continue Ceftin as above Substance abuse history. On Suboxone. Tobacco use. Nicotine replacement. Discussed smoking cessation. Anxiety--low dose ativan Tachycardia--ECG shows sinus tach, ? anxiety and albuterol mediated, goes up after updraft PT eval recommend STR but patient wants to go home with family, probably discharge in couple of days, she is now seriously considering rehab
[2020-04-10] MEDS: Nicotine 21 MG PATCH.TD24 TRANSDERMA (10:23)
[2020-04-10] MEDS: predniSONE 20 MG TABLET PO (10:23)
[2020-04-10] MEDS: levalbuterol HCL 1.25 MG/3 ML VIAL.NEB INHALE ×3 (11:12→19:32)
[2020-04-10 12:54] VITALS: BP 140/63; PULSE 106; RESP 18; TEMP 36.1; O2SAT 90
[2020-04-10 14:52] VITALS: O2SAT 90
[2020-04-10] MEDS: Acetaminophen 325 MG TABLET 650 MG PO (17:38)
[2020-04-10] MEDS: Enoxaparin Sodium 40 MG/0.4 ML SYRINGE SUBCUT (17:39)
[2020-04-10 20:12] VITALS: BP 160/70; PULSE 102; RESP 18; TEMP 36.6; O2SAT 90
[2020-04-10] MEDS: QUEtiapine Fumarate 50 MG TABLET PO (20:14)
[2020-04-10 22:52] VITALS: BP 128/60; PULSE 100; RESP 19; TEMP 36.2; O2SAT 90
[2020-04-11] MEDS: LORazepam 0.5 MG TABLET 0.25 MG PO ×2 (01:43→13:10)
[2020-04-11 02:57] VITALS: BP 128/70; PULSE 69; RESP 19; TEMP 36.1; O2SAT 90
[2020-04-11 06:59] VITALS: BP 129/65; PULSE 90; RESP 18; TEMP 36.1; O2SAT 91
[2020-04-11 07:24] LABS: Glucose, Whole Blood 91 mg/dL (60-115)
[2020-04-11] MEDS: levalbuterol HCL 1.25 MG/3 ML VIAL.NEB INHALE ×3 (07:24→15:47)
[2020-04-11] MEDS: DULoxetine HCl 20 MG CAPSULE.DR PO (08:24)
[2020-04-11] MEDS: Buprenorphine/Naloxone 8/2 mg FILM 2 FILM SUBLINGUAL (08:25)
[2020-04-11] MEDS: predniSONE 20 MG TABLET PO (08:25)
[2020-04-11] MEDS: Nicotine 21 MG PATCH.TD24 TRANSDERMA (08:25)
[2020-04-11] MEDS: 0.9 % Sodium Chloride Flush 3 ML SYRINGE IVFLUSH (08:25)
--- NOTE | 2020-04-11 08:43 | P.DS_ITS ---
DS: Providers Provider Date of admission: 04/05/20 13:06 Primary care physician: Damon Hood MD Consults: 04/06/20 12:57 Consult to Pulmonology Routine Consulting Provider: Apolinar Jordan Reason for consultation: Acute respiratory failure Has provider been notified: Yes DS: Diagnosis Discharge Diagnosis (1) Acute respiratory failure: Status: Acute (2) Community acquired pneumonia: Status: Acute (3) COPD exacerbation: Status: Acute (4) Sepsis: Status: Acute (5) UTI (urinary tract infection): Status: Acute DS: Summary Hospital Course Hospital Course: HPI: 69 year old women with advanced COPD smokes about 1-1/2 packet of cigarette daily presented to the ED on 04/05/20 with increased shortness of breath over the last week. She reported cough with brown phlegm. She denied fever, chills, nausea, vomiting, diarrhea. She also reported some left-sided chest pain that was sharp in nature without any radiation or other associated symptoms that would come and go over the last several days. She denied any re cent illness, sick contacts although she lives in a rooming house. She continues to smoke a pack cigarettes a day. She has a history of substance abuse and denies that she is using actively, is currently on Suboxone. Chest x- ray showed consolidation to right lung suggestive of pneumonia. She was noted to be tachycardic, white blood cell count 21.3. ABG was obtained which showed pH 7.25/56/63/24 with lowest oxygen saturation of 90%. Urinalysis was positive for UTI. She was given a dose of Solu-Medrol, albuterol, lorazepam, ceftriaxone, azithromycin and 1 L of IV fluid in the ER. She will be admitted for further management and treatment of community-acquired pneumonia, acute respiratory failure related to COPD exacerbation. Hospital Course: 1. Sepsis due to community-acquired pneumonia and urinary tract infection. pneumonia was treated with azithromycin and ceftriaxone and later changed to Ceftin p.o.. Urinary tract infection was treated with ceftriaxone and thus a later p.o. Ceftin urine culture so E coli which was sensitive to ceftriaxone. Presently she does not have any fever or chill and WBCs have improved. Sepsis has essentially resolved. 2. Acute and chronic hypoxic respiratory failure due to COPD and complicated about a community-acquired pneumonia as stated above. Acute hypoxic has resolved but she remained in chronic respiratory failure. COPD exacerbation was treated with oxygen initially she was fairly hypoxic but presently she has managed to be off oxygen and satting around 90 91% on room air. She is been evaluated for home O2. She was also treated with IV Solu-Medrol and will be transitioned to oral prednisone for a few more days. She has been strongly advised to stay away from smoking and has been provided with a nicotine replacement therapy. At discharge she will continue use of inhalers including Xopenex by nebulizer she tends to become very tachycardic with albuterol. Community-acquired pneumonia. Completed 5 days of IV ceftriaxone and azithromycin. And will treated with Ceftin for a total of about 10 days. She has n fever. COVID was negative UTI. E. coli, sensitive to Rocephin, Treated with Rocephin (ceftriaxone) as stated above and will complete treatment with Herceptin. Substance abuse history. On Suboxone. Tobacco use. Nicotine replacement. Discussed smoking cessation. Anxiety--low dose ativan P.r.n. for comfort. Tachycardia--Sinus tach on ECG likely from albuterol and will discharge with Xopenex PT eval recommend STR but patient prefers to go home. Will therefore offer VNA as alternative. Status at Discharge Functional status at discharge: independent ambulation Overall status at discharge: patient is progressing back to baseline Time Spent with Patient Time attestation: Total time spent providing and/or coordinating discharge services: Time spent: Greater than 30 minutes Physical Exam Vital Signs: Vital Signs: Vital Signs Temp Pulse Resp BP Pulse Ox 04/11/20 06:59 97 F 90 18 129/65 91 L 04/11/20 02:57 97.0 F 69 19 128/70 90 L 04/10/20 22:52 97.2 F 100 19 128/60 90 L 04/10/20 20:12 97.8 F 102 H 18 160/70 H 90 L 04/10/20 14:52 90 L 04/10/20 12:54 97.0 F 106 H 18 140/63 H 90 L Body Mass Index 20.3 Constitutional Awake and Alert, No apparent distress, somehow frail looking. Neck Supple, No lymphadenopathy Cardiovascular RRR, No M/R/G, S1 S2, No S3 S4, No pedal edema Respiratory Lungs clear, No respiratory distress, No accessory muscle use Gastrointestinal Non tender, Non-distended Skin No rash Neurological Alert & oriented x3 Psychological Appropriate affect DS: Data Data Completed and Pending Labs on day of discharge: Labs from last 24 hours 04/11/20 07:20 POC Glucose 91 Discharge Plan Discharge Anticipated Discharge Date/Time: 04/11/20 11:35 Patient Disposition: Home Health Service Referrals: [facility] [Outside] Damon Hood MD [Primary Care Provider] - Discharge Medications: New nicotine 21 mg/24 hr Patch 24 Hour 21 mg transdermal DAILY Qty: 30 RF: 0 levalbuterol HCl 1.25 mg/3 mL Solution For Nebulization 1.25 mg inhalation Q2-4H PRN (Reason: Shortness Of Breath) Qty: 120 RF: 0 cefuroxime axetil 500 mg Tablet 500 mg PO Q12H Qty: 4 RF: 0 prednisone 10 mg tablet 10 mg PO DAILY Qty: 3 RF: 0 (DME) nebulizer and compressor Device See Rx Instructions .ROUTE .MEDSUPPLY Qty: 1 RF: 0 levalbuterol tartrate [Xopenex HFA] 45 mcg/actuation HFA aerosol inhaler 2 puff inhalation Q4-6H PRN (Reason: shortness of breath or wheezing) Qty: 15 RF: 0 Continued quetiapine 50 mg tablet 50 mg PO BEDTIME Qty: 30 RF: 0 trazodone 50 mg Tablet 50 mg PO BEDTIME PRN (Reason: Sleep) RF: 0 duloxetine 20 mg Capsule,Delayed Release(Dr/Ec) 20 mg PO DAILY RF: 0 Discontinued albuterol sulfate [ProAir HFA] 90 mcg/actuation HFA aerosol inhaler 2 puff inhalation Q4H PRN (Reason: shortness of breath or wheezing) Qty: 18 RF: 1 No Action lorazepam 0.5 mg tablet 0.5 mg PO BEDTIME PRNRF: 0 buprenorphine-naloxone [Suboxone] 8-2 mg film 2 film buccal DAILY 7 Days Qty: 14 RF: 0 Discharge Orders: Discharge Order (Routine); Ordered 04/11/20 Ordered By: David Seaman Diet: advance to your usual diet Activity on Discharge: As tolerated Discharge Date/Time: 04/11/20 16:56 Visit Report Forms: Patient Portal Discharge page Care Plan Goals: Breath comfortably with COPD and prevent rehospitalization Health Concerns: Worsening COPD and breathing problem, especially if you continue to smoke Plan of Treatment: Use inhalers as prescribed, take Prednisone as ordered, Take antibiotics to finish treatment of pneumonia. MUST STOP SMOKING AND USE NICOTINE PATCH INSTA
[2020-04-11 11:08] VITALS: BP 135/72; PULSE 94; RESP 18; TEMP 36.6; O2SAT 90
--- NOTE | 2020-04-11 11:37 | P.PNIM_ITS ---
Subjective Subjective Date of Service: 04/11/20 Interval History: Seen in follow up for acute copd exacerbation with PNA. She is feeling much better today Review of Systems no sob anxiety Physical Exam Vital Signs: Vital Signs: Vital Signs Temp Pulse Resp BP Pulse Ox 04/11/20 11:08 98 F 94 18 135/72 90 L 04/11/20 06:59 97 F 90 18 129/65 91 L 04/11/20 02:57 97.0 F 69 19 128/70 90 L 04/10/20 22:52 97.2 F 100 19 128/60 90 L 04/10/20 20:12 97.8 F 102 H 18 160/70 H 90 L 04/10/20 14:52 90 L 04/10/20 12:54 97.0 F 106 H 18 140/63 H 90 L Appearing in no acute distress head is normocephalic atraumatic eyes pupils are PERRLA sclera is anicteric mouth throat mucous membranes are intact and moist neck is supple no lymphadenopathy, no JVD noted lung rhonchi, improve air movement, no accessory muscle use heart regular rhythm, tachycardic positive bowel sounds, abdomen is soft, nontender neuro patient is alert x3, no focal deficits Objective Data Current Medications Generic Name Dose Route Start Last Admin Trade Name Freq PRN Reason Stop Dose Admin Acetaminophen 650 mg 04/05/20 18:25 04/10/20 17:38 Acetaminophen 325 Mg Tablet PO 650 mg Q6H PRN Administration Pain, Mild (Pain Scale 1-3) Buprenorphine/Naloxone 2 film 04/06/20 09:00 04/11/20 08:25 Buprenorphine/Naloxone 8/2 Mg Film SUBLINGUAL 2 film DAILY ANDREW Administration Cefuroxime Axetil 500 mg 04/10/20 09:30 04/11/20 08:24 Cefuroxime Axetil 500 Mg Tablet PO 500 mg Q12H ANDREW Administration Duloxetine HCl 20 mg 04/06/20 09:00 04/11/20 08:24 Duloxetine Hcl 20 Mg Capsule.Dr PO 20 mg DAILY ANDREW Administration Enoxaparin Sodium 40 mg 04/05/20 18:25 04/10/20 17:39 Enoxaparin Sodium 40 Mg/0.4 Ml Syringe SUBCUT 40 mg Q24H ANDREW Administration Guaifenesin/Dextromethorphan 5 ml 04/05/20 18:25 04/08/20 21:13 Guaifenesin Dm 100/10/5 Ml 5 Ml Syrup PO 5 ml Q4H PRN Administration Cough Levalbuterol HCl 1.25 mg 04/10/20 09:14 Levalbuterol Hcl 1.25 Mg/3 Ml Vial.Neb INHALE Q2H PRN Shortness of Breath Levalbuterol HCl 1.25 mg 04/10/20 12:00 04/11/20 11:13 Levalbuterol Hcl 1.25 Mg/3 Ml Vial.Neb INHALE 1.25 mg RQ4H WHILE AWAKE ANDREW Administration Lorazepam 0.25 mg 04/07/20 09:54 04/11/20 01:43 Lorazepam 0.5 Mg Tablet PO 0.25 mg Q6H PRN Administration anxiety/restlessness Nicotine 21 mg 04/10/20 09:30 04/11/20 08:25 Nicotine 21 Mg Patch.Td24 TRANSDERMA 21 mg DAILY ANDREW Administration Ondansetron HCl 4 mg 04/05/20 18:25 Ondansetron Hcl 4 Mg/2 Ml Vial IVPUSH Q8H PRN Nausea and Vomiting Pharmacy Consult 1 each 04/05/20 13:06 Consult Rx Perform Med Rec MISCELLANE ONCE PRN Consult order Prednisone 20 mg 04/10/20 09:30 04/11/20 08:25 Prednisone 20 Mg Tablet PO 20 mg DAILY ANDREW Administration Quetiapine Fumarate 50 mg 04/05/20 21:00 04/10/20 20:14 Quetiapine Fumarate 50 Mg Tablet PO 50 mg BEDTIME ANDREW Administration Sodium Chloride 3 ml 04/05/20 18:25 04/11/20 08:25 0.9 % Sodium Chloride Flush 3 Ml Syringe IVFLUSH 3 ml QSHIFT ANDREW Administration Trazodone HCl 50 mg 04/05/20 18:25 04/07/20 21:33 Trazodone Hcl 50 Mg Tablet PO 50 mg BEDTIME PRN Administration Sleep Labs CBC & Chem 7: 04/09/20 08:41 04/09/20 08:41 Microbiology Microbiology Results: Microbiology 04/05/20 10:47 Blood - Venous Blood Culture - Final No growth after 5 days. 04/05/20 10:24 Blood - Venous Blood Culture - Final No growth after 5 days. 04/05/20 11:31 Urine clean catch - Clean Catch Midstream Urine Culture - Final Escherichia coli Assessment and Plan (1) Acute respiratory failure: Status: Acute (2) Community acquired pneumonia: Status: Acute (3) COPD exacerbation: Status: Acute (4) Sepsis: Status: Acute (5) UTI (urinary tract infection): Status: Acute Assessment and Plan: 69-year-old woman admitted with sepsis related to community-acquired pneumonia, UTI and COPD exacerbation. Sepsis clinically resolved Acute respiratory failure with hypoxia. Multifactorial related to community- acquired pneumonia, advanced COPD with exacerbation. continue to improve CAP, clinically has responded to Ab -completed 5 days of Azithro -Ceftin for 2 to more days COPD exacerbation. Improved -PO Prednisone -Xopenex UTI. E. coli, continue Ceftin Substance abuse history. On Suboxone. Tobacco use. Nicotine replacement. Discussed smoking cessation. Anxiety--low dose ativan Tachycardia--ECG shows sinus tach, ? anxiety and albuterol mediated, goes up after updraft PT eval recommend STR but patient wants to go home with family, probably disc harge in couple of days, she is now seriously considering rehab
--- NOTE | 2020-04-11 11:49 | MHC.CM.PN ---
Per ROUNDS discussion, Patient will need home O2 and she is not able to have home O2 r/t multiple smokers. Patient is agreeable to STR and multiple referrals have been made (Suboxone may make dc to SNF more difficult. CM will follow.
[2020-04-11] MEDS: guaiFENesin DM 100/10/5 ML 5 ML SYRUP PO (13:10)
--- NOTE | 2020-04-11 14:42 | MHC.CM.PN ---
Patient was accepted at 2 SNFS that take her insurance and can accommodate the Suboxone- [facility]. Patient stated that she prefers to go home; CM informed MD.Patient has been medically cleared for dc to home with [facility]NA. With Patient's approval, Patient will return home with [facility], who is booking for Saturday and starts of care (MD is aware). Second IMM addressed with Patient.
[2020-04-11 15:08] VITALS: BP 140/66; PULSE 109; RESP 18; TEMP 36.2; O2SAT 90
== END 2020-04-11 16:56 | disposition home health service (06) | DRG 193 ==
LOC: HO.ED 18:09 → HO.IMC 18:30
PROVIDERS: Nurse Practitioner Acute Care; Nurse Practitioner Family; Admitting Provider Internal Medicine; Emergency Provider Emergency Medicine; PCP Internal Medicine; Visit Provider Internal Medicine
DX: J18.9 Pneumonia, unspecified organism (principal); J96.22 Acute and chronic respiratory failure with hypercapnia; J96.21 Acute and chronic respiratory failure with hypoxia; J44.0 Chronic obstructive pulmonary disease with (acute) lower respiratory infection; J44.1 Chronic obstructive pulmonary disease with (acute) exacerbation; N39.0 Urinary tract infection, site not specified; F11.20 Opioid dependence, uncomplicated; F32.9 Major depressive disorder, single episode, unspecified; B96.20 Unspecified Escherichia coli [E. coli] as the cause of diseases classified elsewhere; F41.9 Anxiety disorder, unspecified; F17.210 Nicotine dependence, cigarettes, uncomplicated; Z71.6 Tobacco abuse counseling; Z20.828 Contact with and (suspected) exposure to other viral communicable diseases; Z85.3 Personal history of malignant neoplasm of breast; Z79.899 Other long term (current) drug therapy
CPT/HCPCS: 11104; 36415; 36600; 71045; 80048; 80076; 81001; 81003; 82803; 82947; 83605; 83735; 83880; 84484; 85025; 85027; 85610; 87040; 87086; 87088; 87186; 87633; 87635; 90686; 93005; 94640; 96365; 96366; 96375; 97162; 99285; J0574; J1650; J2060; J2920; J2930; J3475

== ENCOUNTER → 2020-04-13 11:29 | Outpatient (BNVA) | payer MEDICARE, SELFPAY | PROVIDERS: PCP Internal Medicine; Referring Provider Internal Medicine; Visit Provider Internal Medicine | DX: F11.90 Opioid use, unspecified, uncomplicated (principal) | CPT/HCPCS: 99211; Q3014 ==

== ENCOUNTER → 2020-04-20 10:41 | Outpatient (BNVA) | payer MEDICARE, SELFPAY | PROVIDERS: Visit Provider Internal Medicine | DX: F11.99 Opioid use, unspecified with unspecified opioid-induced disorder (principal) | CPT/HCPCS: 99211 ==

== ENCOUNTER 2020-05-23 09:04 | Outpatient (REF) | payer MEDICARE, SELFPAY | END 2020-05-23 09:05 | disposition home or self-care (01) | LOC: HO.LNP 09:04 | PROVIDERS: Visit Provider Internal Medicine | DX: F11.99 Opioid use, unspecified with unspecified opioid-induced disorder (principal) | CPT/HCPCS: 80305; 99211 ==

== ENCOUNTER → 2020-05-30 10:07 | Outpatient (BNVA) | payer MEDICARE, SELFPAY | PROVIDERS: Visit Provider Internal Medicine | DX: F11.99 Opioid use, unspecified with unspecified opioid-induced disorder (principal) | CPT/HCPCS: 80348; 99211 ==

== ENCOUNTER → 2020-06-06 10:48 | Outpatient (BNVA) | payer MEDICARE, SELFPAY | PROVIDERS: Visit Provider Internal Medicine | DX: F11.20 Opioid dependence, uncomplicated (principal) | CPT/HCPCS: Q3014 ==

== ENCOUNTER → 2020-06-13 10:04 | Outpatient (BNVA) | payer MEDICARE, SELFPAY | PROVIDERS: Visit Provider Internal Medicine | DX: F11.99 Opioid use, unspecified with unspecified opioid-induced disorder (principal) | CPT/HCPCS: Q3014 ==

== ENCOUNTER → 2020-06-20 13:50 | Outpatient (BNVA) | payer MEDICARE, SELFPAY | PROVIDERS: Visit Provider Internal Medicine | DX: F11.99 Opioid use, unspecified with unspecified opioid-induced disorder (principal) | CPT/HCPCS: Q3014 ==

== ENCOUNTER → 2020-06-27 10:17 | Outpatient (BNVA) | payer MEDICARE, SELFPAY | PROVIDERS: Visit Provider Internal Medicine | DX: Z76.89 Persons encountering health services in other specified circumstances (principal) ==

== ENCOUNTER → 2020-07-04 11:35 | Outpatient (BNVA) | payer MEDICARE, SELFPAY | PROVIDERS: Visit Provider Internal Medicine | DX: F11.20 Opioid dependence, uncomplicated (principal) | CPT/HCPCS: Q3014 ==

== ENCOUNTER → 2020-07-11 10:45 | Outpatient (BNVA) | payer MEDICARE, SELFPAY | PROVIDERS: Visit Provider Internal Medicine | DX: Z13.89 Encounter for screening for other disorder (principal) | CPT/HCPCS: Q3014 ==

== ENCOUNTER → 2020-07-13 15:21 | Outpatient (BNVA) | payer MEDICARE, SELFPAY | PROVIDERS: Visit Provider Internal Medicine | DX: F11.20 Opioid dependence, uncomplicated (principal) | CPT/HCPCS: 80305; 99212 ==

== ENCOUNTER → 2020-07-15 13:49 | Outpatient (BNVA) | payer MEDICARE, SELFPAY | PROVIDERS: Visit Provider Internal Medicine | DX: Z51.81 Encounter for therapeutic drug level monitoring (principal); F11.99 Opioid use, unspecified with unspecified opioid-induced disorder | CPT/HCPCS: 99212 ==

== ENCOUNTER → 2020-07-22 13:32 | Outpatient (BNVA) | payer MEDICARE, SELFPAY | PROVIDERS: Visit Provider Internal Medicine | DX: F11.20 Opioid dependence, uncomplicated (principal) | CPT/HCPCS: 80305; Q3014 ==

== ENCOUNTER → 2020-07-25 12:01 | Outpatient (BNVA) | payer MEDICARE, SELFPAY | PROVIDERS: Visit Provider Internal Medicine | DX: Z51.81 Encounter for therapeutic drug level monitoring (principal); F11.99 Opioid use, unspecified with unspecified opioid-induced disorder ==

== ENCOUNTER → 2020-07-27 09:29 | Outpatient (BNVA) | payer MEDICARE, SELFPAY | PROVIDERS: Visit Provider Internal Medicine | DX: F11.99 Opioid use, unspecified with unspecified opioid-induced disorder (principal) | CPT/HCPCS: 80305; 99212 ==

== ENCOUNTER → 2020-08-03 10:43 | Outpatient (BNVA) | payer MEDICARE, SELFPAY | PROVIDERS: Visit Provider Internal Medicine | DX: F11.99 Opioid use, unspecified with unspecified opioid-induced disorder (principal) | CPT/HCPCS: Q3014 ==

== ENCOUNTER → 2020-08-17 13:44 | Outpatient (BNVA) | payer MEDICARE, SELFPAY | PROVIDERS: Visit Provider Internal Medicine | DX: Z51.81 Encounter for therapeutic drug level monitoring (principal) | CPT/HCPCS: 80305; 99211 ==

== ENCOUNTER 2020-08-31 13:44 | Outpatient (REF) | payer MEDICARE, SELFPAY ==
[2020-09-05 13:27] LABS: EDDP (Methadone Metabolite) negative; Methadone, Urine MS negative
== END 2020-08-31 13:45 | disposition home or self-care (01) ==
LOC: HO.LNP 13:44
PROVIDERS: Visit Provider Internal Medicine
DX: F11.99 Opioid use, unspecified with unspecified opioid-induced disorder (principal); Z51.81 Encounter for therapeutic drug level monitoring
CPT/HCPCS: 80305; 80358; 99211

== ENCOUNTER → 2020-09-07 14:48 | Outpatient (BNVA) | payer MEDICARE, SELFPAY | PROVIDERS: Visit Provider Internal Medicine | DX: F11.99 Opioid use, unspecified with unspecified opioid-induced disorder (principal); Z51.81 Encounter for therapeutic drug level monitoring; Z79.899 Other long term (current) drug therapy | CPT/HCPCS: 80305; 99211 ==

== ENCOUNTER → 2020-09-14 13:02 | Outpatient (BNVA) | payer MEDICARE, SELFPAY | PROVIDERS: Visit Provider Internal Medicine | DX: Z51.81 Encounter for therapeutic drug level monitoring (principal) | CPT/HCPCS: 80305; 99211 ==

== ENCOUNTER → 2020-09-28 12:57 | Outpatient (BNVA) | payer MEDICARE, SELFPAY | PROVIDERS: Visit Provider Internal Medicine | DX: Z51.81 Encounter for therapeutic drug level monitoring (principal); Z79.899 Other long term (current) drug therapy | CPT/HCPCS: 80305; 99211 ==

== ENCOUNTER 2020-10-07 07:47 | Outpatient (REF) | payer MEDICARE, SELFPAY ==
--- NOTE | ~2020-10-07 | MM_ITS ---
EXAMINATION: MM DIAGNOSTIC DIGITAL BREAST TOMOSYNTHESIS, LEFT US DIAGNOSTIC ULTRASOUND BREAST, BILATERAL CLINICAL INFORMATION: 70-year-old with prior right mastectomy for cancer. Prior outside imaging from [place] currently unavailable. Patient complains of palpable areas of concern inferior left breast and overlying the right mastectomy site. COMPARISON: None. TECHNIQUE: Digital breast tomosynthesis is performed in both the craniocaudal and mediolateral oblique views along with computer-aided detection (CAD). Synthesized 2D images are generated from the tomosynthesis. Additional exaggerated CC view is provided. Ultrasound left breast is targeted to the areas of clinical concern noted by the patient, 12:00 through 3:00 position and 5:00 to 7:00 position. Ultrasound right mastectomy area results are performed including the right axilla. Grayscale imaging and color Doppler are performed without and with harmonics for both sides. FINDINGS: There are scattered areas of fibroglandular density (ACR BI-RADS breast composition Category b). There is no mass or architectural abnormality. There are scattered benign-appearing small round calcifications and some vascular calcifications. No skin thickening or retraction. The axilla are unremarkable. Ultrasound left breast shows no cystic or solid mass or architectural abnormality. There is no skin thickening or edema tracking in soft tissue planes. No focal duct ectasia. Ultrasound of the right anterior chest wall and axilla demonstrates no cystic or solid mass. There is no skin thickening or edema tracking in soft tissue planes. No lymphadenopathy. Results are discussed with the patient at time of visit. Radiology department staff will attempt to retrieve prior [id number] mammography to allow for comparison in an addendum report. There is no imaging correlate for patient's symptoms. Consider surgical consult for further management as needed. MM/MM tomosynthesis diagnostic LT IMPRESSION: 1. No imaging correlate for patient's bilateral symptoms. 2. Unremarkable left breast. ASSESSMENT: BI-RADS 2: Benign RECOMMENDATION: 1. Patient should be managed based on the clinical impression. If clinically indicated, further evaluation may be considered with surgical consult. Decision to proceed with biopsy should be based on clinical grounds and degree of clinical concern. 2. Radiology department staff will attempt to retrieve prior [id number] mammography for comparison in an addendum report. Otherwise, routine annual screening mammography. This patient's information was entered into a reminder system with a target due date for their next mammogram.
== END 2020-10-07 07:48 | disposition home or self-care (01) ==
LOC: HO.MAMMO 07:47
PROVIDERS: Visit Provider Internal Medicine
DX: R92.1 Mammographic calcification found on diagnostic imaging of breast (principal); Z85.3 Personal history of malignant neoplasm of breast; Z90.11 Acquired absence of right breast and nipple
CPT/HCPCS: 76642; 77061; 77065

== ENCOUNTER → 2020-10-12 12:59 | Outpatient (BNVA) | payer MEDICARE, SELFPAY | PROVIDERS: Visit Provider Internal Medicine | DX: Z51.81 Encounter for therapeutic drug level monitoring (principal) | CPT/HCPCS: 80305; 99211 ==

== ENCOUNTER → 2020-10-26 13:03 | Outpatient (BNVA) | payer MEDICARE, SELFPAY | PROVIDERS: Visit Provider Internal Medicine | DX: Z51.81 Encounter for therapeutic drug level monitoring (principal) | CPT/HCPCS: 80305; 99211 ==

== ENCOUNTER 2020-11-09 13:01 | Emergency (ER) | payer MEDICARE, SELFPAY ==
[2020-11-09 13:06] VITALS: BP 178/96; BP 178/97; PULSE 111; PULSE 96; RESP 24; TEMP 36.6; O2SAT 96; O2SAT 99; BMI 23.1
--- NOTE | 2020-11-09 13:16 | PC.NURSE ---
Patient brought in by Tonny Armijo FD, patient presents with SOB and dyspnea on exertion- duoneb and solumedrol given en route. Per EMS and the pt, states that she rain out of her proair 6 days ago and has not gotten it refilled. Patient on 6L initially upon EMS arrival, pt states does not wear oxygen at home and nasal cannula removed with SATS 94-96% on room air. Patient immediately seen by Naila BI APPLICATION DEVELOPER- who ordered EKG, XRAY, Labs, meds- etc. Patient refusing to wait to be seen/have testing done and began to leave the facility independently. Naila BI APPLICATION DEVELOPER, johanna RN and Violeta RN alerted of the patients refusal to wait- IV removed, BI APPLICATION DEVELOPER alerted of the patient leaving and was unable to redirect the patient/convince to stay for testing/labs/medications. Therefore patient left AMA, medications sent to the patients pharmacy and patient ambulated independently out of the ER.
--- NOTE | 2020-11-09 13:19 | ED.SOB ---
HPI - SOB/Dyspnea General Chief Complaint: Dyspnea Stated Complaint: sob Time Seen by Provider: 11/09/20 13:08 Source: EMS Mode of arrival: EMS Limitations: no limitations History of Present Illness HPI Narrative: 70 yo female with past medical history of COPD here with shortness of breath x2 days with cough after running out of her albuterol inhaler. Patient received a DuoNeb and 125 mg of Solu-Medrol prior to arrival. She does have some lower extremity swelling which he tells me is worsened the last 2 days. . No weight gain. No productive cough. No chest pain. Related Data Home Medications Medication Instructions Recorded Confirmed duloxetine 20 mg PO DAILY 04/05/20 08/17/20 lorazepam 0.5 mg tablet 0.5 mg PO BEDTIME PRN 04/12/20 08/17/20 trazodone 50 mg tablet 50 mg PO BEDTIME PRN 05/09/20 09/14/20 albuterol sulfate 90 mcg/actuation 1 inh INHALATION Q4H g 09/09/20 aerosol inhaler Previous Rx's Medication Instructions Recorded cefuroxime axetil 500 mg PO Q12H #4 tab 04/11/20 levalbuterol HCl 1.25 mg INHALATION Q2-4H PRN #120 04/11/20 ml levalbuterol tartrate [Xopenex HFA] 2 puff INHALATION Q4-6H PRN #15 g 04/11/20 nebulizer and compressor #1 ea 04/11/20 nicotine 21 mg TRANSDERMAL DAILY #30 ea 04/11/20 prednisone 10 mg PO DAILY #3 tab 04/11/20 quetiapine 50 mg tablet 50 mg PO BEDTIME #30 tab 07/13/20 albuterol sulfate 90 mcg/actuation 2 puff INHALATION Q4H PRN #17 g 09/12/20 aerosol inhaler albuterol sulfate 2 inh INHALATION Q4-6H PRN #1 ea 11/09/20 buprenorphine 8 mg-naloxone 2 mg 2 film SUBLINGUAL DAILY 7 Days #14 11/09/20 sublingual film ea prednisone 40 mg PO DAILY #8 tab 11/09/20 Allergies Allergy/AdvReac Type Severity Reaction Status Date / Time No Known Allergies Allergy Verified 11/09/20 13:52 [No Known Allergies*] Review of Systems Review of Systems: Yes all other systems are reviewed and are negative Constitutional: Constitutional: Reports no additional constitutional complaints, Denies body ache(s), Denies chills, Denies fever(s), Denies headache(s) and Denies weakness Eyes: Eyes: Reports no additional eye complaints and Denies change in vision ENT: Reports system reviewed and no additional complaints, except as documented, Denies dizziness, Denies headache(s), Denies nasal congestion, Denies nasal discharge and Denies neck pain Cardiovascular: Cardiovascular: Reports no additional cardiovascular complaints, Denies chest pain, Reports leg edema and Reports dyspnea Respiratory: Respiratory: Reports no additional respiratory complaints, Reports cough and Reports dyspnea Gastrointestinal: Gastrointestinal: Reports no additional gastrointestinal complaints, Denies abdominal pain, Denies diarrhea, Denies nausea and Denies vomiting Genitourinary: Genitourinary: Reports no additional female genitourinary complaints and Denies urinary incontinence Musculoskeletal: Musculoskeletal: Reports no additional musculoskeletal complaints, Denies back pain, Denies arthralgias, Denies joint swelling, Denies neck pain, Denies numbness and Denies tingling Integumentary/Breasts: Skin/Breast: Reports system reviewed and no additional complaints, except as docu and Denies rash Neurologic: Reports system reviewed and no additional complaints, except as documented, Denies Abnormal speech present, Denies dizziness, Denies headache(s), Denies numbness, Denies tingling and Denies weakness PMFSH Past Medical History Attestation statement: The following information was validated with the patient. Source: old records reviewed and nursing notes reviewed Medical History Breast cancer Chronic pain COPD (chronic obstructive pulmonary disease) COPD (chronic obstructive pulmonary disease) Depression Fibromyalgia Hypoxia Substance abuse Surgical History H/O mastectomy Family History Family History Father No problems noted. Mother No problems noted. Social History Social History Household Members: Family Housing: House Alcohol intake: never Smoking Status: Current every day smoker Tobacco Type: Cigarette Packs Per Day: 1 Cigarettes Per Day: 20 Years Smoked: 50 Second Hand Smoke Exposure: Yes Substance Use Type: Heroin and Other Advance Directives Date on File: 04/05/20 service: No Physical Exam Vital Signs: Vital Signs: Last Vital Signs Temp 98 F 11/09/20 13:06 Pulse 111 H 11/09/20 13:06 Resp 24 H 11/09/20 13:06 BP 178/97 H 11/09/20 13:06 Pulse Ox 96 11/09/20 13:06 Body Mass Index 23.1 Const: General: cooperative, healthy appearing, comfortable and no acute distress Orientation/consciousness: patient oriented x3 Limitations: no limitations HENMT: Head: Yes normal to inspection Ears: hearing grossly normal bilaterally General nose exam: Normal external nose present Face and sinus: Yes normal facial exam Mouth: Normal oral and palatal mucosa present Throat: Yes posterior oropharynx normal Eyes: General: appearance normal, both eyes and all related structures Pupils: Equal, round and reactive pupils present Neck: Neck: Yes normal visual inspection Chest: Chest palpation & inspection: normal inspection of the chest Resp: Other: Sitting upright speaking short phrases. Room air saturation 95%. Mild expiratory wheezing bilaterally Cardio: Rate: regular rate Rhythm: regular rhythm Peripheral pulses: Peripheral pulses 2+ throughout GI: Inspection: Yes normal to inspection Palpation (GI): Soft to palpation and nontender Auscultation: normal bowel sounds Back/Spine/Pelvis: Thoracic/Lumbar Spine: thoracic and lumbar spine normal to inspection Skin: General skin exam: no rashes or lesions noted Neuro: General: patient oriented x3, no focal motor deficits and normal sensation to monofilament Cranial nerves: Yes Equal, round and reactive pupils present Cognition (Neuro): normal cognition Speech: No Abnormal speech present Gait exam (Neuro): Normal gait present Motor exam (neuro): 5/5 motor strength present throughout Extrem: Other: 1+ pedal edema around the ankles with no erythema or warmth General: Yes normal to inspection and Yes no calf tenderness Course Course Course Narrative: 70-year-old female with a past medical history of COPD here with shortness of breath and cough for the last few days after running out of her albuterol inhaler. Received DuoNeb and Solu-Medrol by EMS and now is feeling improved. She does have some mild tachypnea, mild expiratory wheezing although was stable on room air at 95%. Recommended repeating albuterol, giving magnesium, checking labs, chest x-ray, EKG. Patient however would like to be going home. She is alert and oriented. She is aware that her respiratory status is not back at baseline and she should remain for additional evaluation and treatment but she declined this.. Signed out AMA. MDM - SOB/Dyspnea Medical Records Attestation: I reviewed the patient's medical records. Lab Data Attestation: I reviewed the patient's lab results. Discharge Plan Discharge Clinical Impression: COPD (chronic obstructive pulmonary disease) Patient Disposition: Left Against Medical Advice Instructions: COPD (Chronic Obstructive Pulmonary Disease) (ED), Against Medical Advice (ED) Additional Instructions: Next dose of prednisone tomorrow It was recommended you stay in the emergency department and have some testing, repeat albuterol, medications through the IV to help her breathing but instead you chose to leave Prescriptions: New albuterol sulfate 90 mcg/actuation aerosol powdr breath activated 2 inh inhalation Q4-6H PRN (Reason: shortness of breath or wheezing) Qty: 1 RF: 0 prednisone 20 mg tablet 40 mg PO DAILY Qty: 8 RF: 0 No Action trazodone 50 mg tablet 50 mg PO BEDTIME PRNRF: 0 quetiapine 50 mg tablet 50 mg PO BEDTIME Qty: 30 RF: 1 albuterol sulfate [ProAir HFA] 90 mcg/actuation HFA aerosol inhaler 1 inh inhalation Q4H RF: 0 albuterol sulfate 90 mcg/actuation HFA aerosol inhaler 2 puff inhalation Q4H PRN (Reason: for wheezing) Qty: 17 RF: 1 duloxetine 20 mg Capsule,Delayed Release(Dr/Ec) 20 mg PO DAILY RF: 0 nicotine 21 mg/24 hr Patch 24 Hour 21 mg transdermal DAILY Qty: 30 RF: 0 levalbuterol HCl 1.25 mg/3 mL Solution For Nebulization 1.25 mg inhalation Q2-4H PRN (Reason: Shortness Of Breath) Qty: 120 RF: 0 cefuroxime axetil 500 mg Tablet 500 mg PO Q12H Qty: 4 RF: 0 prednisone 10 mg tablet 10 mg PO DAILY Qty: 3 RF: 0 (DME) nebulizer and compressor Device See Rx Instructions .ROUTE .MEDSUPPLY Qty: 1 RF: 0 levalbuterol tartrate [Xopenex HFA] 45 mcg/actuation HFA aerosol inhaler 2 puff inhalation Q4-6H PRN (Reason: shortness of breath or wheezing) Qty: 15 RF: 0 lorazepam 0.5 mg tablet 0.5 mg PO BEDTIME PRNRF: 0 buprenorphine-naloxone [Suboxone] 8-2 mg film 2 film sublingual DAILY 7 Days Qty: 14 RF: 1 Stand Alone Forms: Against Medical Advice Interventions: ED Discharge Assessment Last Done: 11/09/20 13:24 Discharge Date/Time: 11/09/20 13:26
== END 2020-11-09 13:26 | disposition left against medical advice (07) ==
PROVIDERS: Emergency Provider Emergency Medicine Emergency Medical Services; PCP Internal Medicine
DX: J44.9 Chronic obstructive pulmonary disease, unspecified (principal); R06.00 Dyspnea, unspecified; F17.210 Nicotine dependence, cigarettes, uncomplicated; Z71.6 Tobacco abuse counseling; Z79.899 Other long term (current) drug therapy
CPT/HCPCS: 80305; 96360; 99212; 99283

== ENCOUNTER → 2020-11-23 13:44 | Outpatient (BNVA) | payer MEDICARE, SELFPAY | PROVIDERS: PCP Internal Medicine; Visit Provider Internal Medicine | DX: F11.99 Opioid use, unspecified with unspecified opioid-induced disorder (principal) | CPT/HCPCS: 80305; 99212 ==

== ENCOUNTER 2020-11-26 11:19 | Inpatient (IN) | payer OTHER, MEDICARE, SELFPAY ==
[2020-11-26] VITALS (12 sets, daily range): BP systolic 129–165; BP diastolic 55–87; PULSE 83–108; RESP 18–24; TEMP 36.6–37.2; O2SAT 85–97; BMI 22.6
--- NOTE | ~2020-11-26 | XR_ITS ---
EXAMINATION: XR CHEST CLINICAL INFORMATION: Shortness of breath. COMPARISON: 04/05/2020. TECHNIQUE: Frontal view of the chest was obtained. FINDINGS: The lungs show generalized hyperinflation, but otherwise are clear. The heart and mediastinal structures are unremarkable. XR/XR chest 1V IMPRESSION: COPD, but no acute cardiopulmonary process.
--- NOTE | ~2020-11-26 | XR_ITS ---
EXAMINATION: XR CHEST CLINICAL INFORMATION: Persistent hypoxia and cough. Question infiltrate. COMPARISON: Previous chest x-rays most recent 11/26/[address] July 2019 TECHNIQUE: Frontal view of the chest was obtained. FINDINGS: The cardiac and mediastinal contours are stable. There is question of a small infiltrate or nodular density in the left superior hilar region versus superimposition of bone and vascular structures, the left anterior first and posterior seventh rib. The lungs are otherwise clear. There is no pleural effusion or pneumothorax. There are degenerative changes of the spine. XR/XR chest 1V IMPRESSION: Question small infiltrate or nodular density in the left superior hilar region versus superimposition of bone and vascular structures. Follow-up chest radiograph recommended.
--- NOTE | 2020-11-26 11:44 | ECG_ITS ---
Test Reason : SOB Blood Pressure : / mmHG Vent. Rate : 094 BPM Atrial Rate : 094 BPM P-R Int : 158 ms QRS Dur : 066 ms QT Int : 372 ms P-R-T Axes : 080 052 060 degrees QTc Int : 465 ms Normal sinus rhythm Biatrial enlargement Abnormal ECG When compared with ECG of 09-APR-2020 10:51, T wave inversion now evident in Anterior leads Referred By: Nickie Mendez Electronically Signed By:Bari Delvalle
[2020-11-26] MEDS: methylPREDNISolone Sod Succ 125 MG/2 ML VIAL IVPUSH (11:58)
[2020-11-26 11:59] LABS: MANUAL DIFF FLAG NO
--- NOTE | 2020-11-26 11:59 | ED.SOB ---
HPI - SOB/Dyspnea General Chief Complaint: Dyspnea Stated Complaint: difficulty breathing, legs swollen Time Seen by Provider: 11/26/20 11:44 History of Present Illness HPI Narrative: Patient is a 70-year-old female with a long history of COPD. Usually smokes about 2 packs a day. Presents today with having increasing shortness of breath. Coughing generalized malaise. Patient also complaining of some chest pain that is a tightness. Question if she had a previous history of blood clot in the past. Patient from home. Baseline not on any oxygen. Patient been in the hospital about 2 weeks ago for similar symptoms. Patient did not get the COVID vaccine. Patient feels very weak and tired. No nausea no vomiting. No abdominal pain. Positive generalized malaise. Positive bilateral lower extremity edema. This is not new as Related Data Home Medications Medication Instructions Recorded Confirmed duloxetine 20 mg PO DAILY 04/05/20 11/23/20 lorazepam 0.5 mg tablet 0.5 mg PO BEDTIME PRN 04/12/20 11/23/20 trazodone 50 mg tablet 50 mg PO BEDTIME PRN 05/09/20 11/23/20 albuterol sulfate 90 mcg/actuation 1 inh INHALATION Q4H g 09/09/20 11/23/20 aerosol inhaler Previous Rx's Medication Instructions Recorded cefuroxime axetil 500 mg PO Q12H #4 tab 04/11/20 levalbuterol HCl 1.25 mg INHALATION Q2-4H PRN #120 04/11/20 ml levalbuterol tartrate [Xopenex HFA] 2 puff INHALATION Q4-6H PRN #15 g 04/11/20 nebulizer and compressor #1 ea 04/11/20 nicotine 21 mg TRANSDERMAL DAILY #30 ea 04/11/20 prednisone 10 mg PO DAILY #3 tab 04/11/20 quetiapine 50 mg tablet 50 mg PO BEDTIME #30 tab 07/13/20 albuterol sulfate 90 mcg/actuation 2 puff INHALATION Q4H PRN #17 g 09/12/20 aerosol inhaler albuterol sulfate 2 inh INHALATION Q4-6H PRN #1 ea 11/09/20 prednisone 40 mg PO DAILY #8 tab 11/09/20 buprenorphine 8 mg-naloxone 2 mg 2 film SUBLINGUAL DAILY 7 Days #14 11/23/20 sublingual film ea Allergies Allergy/AdvReac Type Severity Reaction Status Date / Time No Known Allergies Allergy Verified 11/09/20 13:52 [No Known Allergies*] Review of Systems Review of Systems: Patient unable to give detailed review systems secondary to her respiratory status. [facility] Past Medical History Medical History Breast cancer Chronic pain COPD (chronic obstructive pulmonary disease) COPD (chronic obstructive pulmonary disease) Depression Fibromyalgia Hypoxia Substance abuse Surgical History H/O mastectomy Family History Family History Father No problems noted. Mother No problems noted. Social History Social History Household Members: Family Housing: House Do you presently have visiting nurse or other home services: No Alcohol intake: never Patient Tobacco Use Status: Current everyday Tobacco user Cigarette Packs Per Day: 1 Cigarettes Per Day: 20 Years Smoked: 50 Second Hand Smoke Exposure: Yes Substance Use Type: Heroin and Other Advance Directives: Yes Advance Directives on File: Yes Advance Directives Date on File: 04/05/20 service: No Physical Exam Vital Signs: Vital Signs: Last Vital Signs Temp 98.9 F 11/26/20 11:29 Pulse 83 11/26/20 12:47 Resp 20 11/26/20 12:47 BP 153/70 H 11/26/20 12:47 Pulse Ox 95 11/26/20 12:47 Body Mass Index 22.6 Appearance: Alert. Oriented X3. Sick appearing gasping for air Eyes: Pupils equal, round and reactive to light. ENT: Pharynx normal. Neck: Normal inspection. Neck supple. No lymph nodes noted. No crepitus CVS: Normal heart rate and rhythm. Pulses normal. Normal S1 and S2 Respiratory: Diminished breath sounds bilaterally. With increased work of breathing. Positive retraction noted. Abdomen: Soft and nontender. No rigidity. No distention. good BS x4 Skin: Skin warm and dry. Normal skin color. Normal skin turgor. Extremities: 2+ lower extremity edema bilaterally. Neurovascular intact to all extremities. No Lacerations. No Rash Neuro: Oriented X 3. No motor deficit. No sensory deficit. Moving all extermities. No slurred speech MDM - SOB/Dyspnea MDM Narrative Medical decision making narrative: Patient is 70 years old has a history of COPD was in the emergency department previously for the same. Complaining of extremis condition extremely short of breath. Patient smokes on a daily basis. Normally not on home oxygen. Positive coughing positive generalized malaise. Question history of blood clot. Patient D-dimer was negative in the setting of a very tight lung exam unlikely secondary to PE. Chest x-ray showed no focal infiltrate. Patient's symptom improved with steroid and also albuterol treatment. Patient's coronavirus test was negative. Will admit patient for further evaluation. Started on azithromycin. Patient's case discussed with the hospitalist team. ABG showed no gross retention. In stable condition awaiting admission. Patient is not septic, patient only has COPD exacerbation. Differential Diagnosis Differential diagnosis: Likely acute exacerbation of chronic obstructive airways disease, congestive heart failure, pneumonia, asthma with exacerbation and pulmonary embolism Medical Records Attestation: I reviewed the patient's medical records. Lab Data Result diagrams: 11/26/20 11:51 11/26/20 11:51 Labs: Lab Results 11/26/20 11/26/20 11/26/20 Range/Units 11:51 11:51 11:51 WBC 7.6 (4.8-10.8) X10*3/uL RBC 4.95 (4.20-5.50) X10*6/uL Hgb 15.0 (12.0-16.0) g/dl Hct 47.5 H (37-47) % MCV 96.0 (80-98) fL MCH 30.3 (27.0-33.0) pg MCHC 31.6 (31.0-35.0) g/dl RDW 14.8 (11.0-16.0) % Plt Count 287 (160-400) X10*3/uL MPV 8.5 L (9.4-12.3) fL Immature Gran % (Auto) 0.3 (0.0-0.4) % Neut % (Auto) 57.4 (45-73) % Lymph % (Auto) 29.7 (20-40) % Mcdonald % (Auto) 10.0 (2-11) % Eos % (Auto) 2.1 (0-4) % Baso % (Auto) 0.5 (0-2) % Lymph # (Auto) 2.3 (1.2-4.9) X10*3/uL Mcdonald # (Auto) 0.8 (0.1-1.2) X10*3/uL Eos # (Auto) 0.2 (0.0-0.4) X10*3/uL Baso # (Auto) 0.0 (0.0-0.2) X10*3/uL Abs Immat Gran (auto) 0.02 (0.00-0.03) X10*3/uL Absolute Neuts (auto) 4.4 (2.0-8.3) X10*3/uL Absolute Nucleated RBC 0.000 (0.0-0.012) X10*3/uL Nucleated RBC % (auto) 0.0 (0.0-0.2) /100WBC PT 11.3 (10.8-13.0) SEC INR 1.0 (0.9-1.1) D-Dimer 236 NG/ML Sodium 141 (135-145) mmol/L Potassium 4.2 (3.3-5.1) mmol/L Chloride 101 (96-108) mmol/L Carbon Dioxide 29 (22-29) mmol/L Anion Gap 15 (12-20) BUN 15 D (9-16) mg/dL Creatinine 1.04 (0.5-1.4) mg/dL Estim Creat Clear Calc 42.8 Estimated GFR 52 Random Glucose 82 D (60-115) mg/dL Lactic Acid (0.5-2.0) mmol/L Calcium 9.3 D (8.4-10.2) mg/dL Total Bilirubin 0.3 (0.0-1.0) mg/dL Direct Bilirubin 0.2 (0.0-0.5) mg/dL AST 17 (5-31) U/L ALT 8 (0-31) U/L Alkaline Phosphatase 114 D (39-117) U/L Troponin I High Sens (<3.5-17.0) ng/L B-Natriuretic Peptide (<100) pg/mL Total Protein 7.9 (6.5-8.0) g/dL Albumin 4.3 D (3.5-5.0) g/dL Coronavirus (PCR) (Negative) Influenza Type A (PCR) (Negative) Influenza Type B (PCR) (Negative) RSV RNA Qual (PCR) (Negative) 11/26/20 11/26/20 11/26/20 Range/Units 11:51 11:51 11:51 WBC (4.8-10.8) X10*3/uL RBC (4.20-5.50) X10*6/uL Hgb (12.0-16.0) g/dl Hct (37-47) % MCV (80-98) fL MCH (27.0-33.0) pg MCHC (31.0-35.0) g/dl RDW (11.0-16.0) % Plt Count (160-400) X10*3/uL MPV (9.4-12.3) fL Immature Gran % (Auto) (0.0-0.4) % Neut % (Auto) (45-73) % Lymph % (Auto) (20-40) % Mcdonald % (Auto) (2-11) % Eos % (Auto) (0-4) % Baso % (Auto) (0-2) % Lymph # (Auto) (1.2-4.9) X10*3/uL Mcdonald # (Auto) (0.1-1.2) X10*3/uL Eos # (Auto) (0.0-0.4) X10*3/uL Baso # (Auto) (0.0-0.2) X10*3/uL Abs Immat Gran (auto) (0.00-0.03) X10*3/uL Absolute Neuts (auto) (2.0-8.3) X10*3/uL Absolute Nucleated RBC (0.0-0.012) X10*3/uL Nucleated RBC % (auto) (0.0-0.2) /100WBC PT (10.8-13.0) SEC INR (0.9-1.1) D-Dimer NG/ML Sodium (135-145) mmol/L Potassium (3.3-5.1) mmol/L Chloride (96-108) mmol/L Carbon Dioxide (22-29) mmol/L Anion Gap (12-20) BUN (9-16) mg/dL Creatinine (0.5-1.4) mg/dL Estim Creat Clear Calc Estimated GFR Random Glucose (60-115) mg/dL Lactic Acid 0.7 (0.5-2.0) mmol/L Calcium (8.4-10.2) mg/dL Total Bilirubin (0.0-1.0) mg/dL Direct Bilirubin (0.0-0.5) mg/dL AST (5-31) U/L ALT (0-31) U/L Alkaline Phosphatase (39-117) U/L Troponin I High Sens 4.1 (<3.5-17.0) ng/L B-Natriuretic Peptide 60 (<100) pg/mL Total Protein (6.5-8.0) g/dL Albumin (3.5-5.0) g/dL Coronavirus (PCR) NEGATIVE (Negative) Influenza Type A (PCR) NEGATIVE (Negative) Influenza Type B (PCR) NEGATIVE (Negative) RSV RNA Qual (PCR) NEGATIVE (Negative) Critical Care Time Critical Care Time Total Critical Care Time: 40 Attestation: I have personally provided 40 minutes of critical care time exclusive of time spent on separately billable procedures. Time includes review of lab data, radiology results, discussion with consultants, and monitoring for potential decompensation. Interventions were performed as documented above Discharge Plan Discharge Clinical Impression: Acute exacerbation of chronic obstructive airways disease Patient Disposition: Admitted As Inpatient
[2020-11-26 12:01] LABS: Basophils Percent Auto 0.5 % (0-2); Eosinophils Absolute Auto 0.2 X10*3/uL (0.0-0.4); Eosinophils Percent Auto 2.1 % (0-4); Hematocrit 47.5 % (37-47); Imm Gran Abs Auto 0.02 X10*3/uL (0.00-0.03); Imm Gran Pct Auto 0.3 % (0.0-0.4); Lymphocytes Absolute Auto 2.3 X10*3/uL (1.2-4.9); Lymphocytes Percent Auto 29.7 % (20-40); Mean Corpuscular HGB Conc 31.6 g/dl (31.0-35.0); Mean Corpuscular Hemoglobin 30.3 pg (27.0-33.0); Mean Platelet Volume 8.5 fL (9.4-12.3); Monocytes Absolute Auto 0.8 X10*3/uL (0.1-1.2); Neutrophils Absolute Auto 4.4 X10*3/uL (2.0-8.3); Neutrophils Percent Auto 57.4 % (45-73); Platelet Count 287 X10*3/uL (160-400); Red Blood Count 4.95 X10*6/uL (4.20-5.50); Red Cell Distribution Width 14.8 % (11.0-16.0); White Blood Count 7.6 X10*3/uL (4.8-10.8)
[2020-11-26 12:08] LABS: Prothrombin Time 11.3 SEC (10.8-13.0)
[2020-11-26 12:11] LABS: D Dimer 236 NG/ML
[2020-11-26 12:14] LABS: Venous Blood Gas Refer to POC result
--- NOTE | 2020-11-26 12:14 | PC.NURSE ---
Pt alert, oriented, VSS, skin dusky and warm. LS audibly coarse and congested. Increased work of breathing with accessory muscles. 97% on 2L NC, +3 bilateral pedal edema, Pt states worsening over past 6wks. NSR on monitor. 2 ivs placed, labs sent, 1hr long tx started, medication given as documented. Lab results pending.
[2020-11-26 12:34] LABS: Lactic Acid 0.7 mmol/L (0.5-2.0)
[2020-11-26 12:40] LABS: Influenza A PCR NEGATIVE (Negative); Influenza B PCR NEGATIVE (Negative); Resp Syncy Virus RNA Qual PCR NEGATIVE (Negative); SARS COV2 PCR INHOUSE NEGATIVE (Negative)
[2020-11-26 12:45] LABS: B Type Natriuretic Peptide 60 pg/mL (<100); Troponin-I High Sensitivity 4.1 ng/L (<3.5-17.0)
[2020-11-26 12:48] LABS: Alanine Aminotransferase 8 U/L (0-31); Albumin Level 4.3 g/dL (3.5-5.0); Alkaline Phosphatase 114 U/L (39-117); Aspartate Amino Transferase 17 U/L (5-31); Bilirubin Direct 0.2 mg/dL (0.0-0.5); Bilirubin Total 0.3 mg/dL (0.0-1.0); Blood Urea Nitrogen 15 mg/dL (9-16); Calcium 9.3 mg/dL (8.4-10.2); Creatinine Clr Calc Pharmacy 42.8; Estimated Glomerular Filt Rate 52; Glucose Random 82 mg/dL (60-115); Total Protein 7.9 g/dL (6.5-8.0)
--- NOTE | 2020-11-26 12:49 | PC.NURSE ---
NG tubing advanced 5cm, pt tolerated well. 200ml drainage in suction canister. Pt passing flatus, resting quietly, daughter at bedside.
[2020-11-26 12:55] LABS: Anion Gap 15 (12-20); Carbon Dioxide 29 mmol/L (22-29); Chloride 101 mmol/L (96-108); Potassium 4.2 mmol/L (3.3-5.1); Sodium 141 mmol/L (135-145)
[2020-11-26] MEDS: Azithromycin 500 MG in 0.9 % Sodium Chloride 250 ML 125 MG IV (15:18)
--- NOTE | 2020-11-26 15:22 | PC.NURSE ---
hospitalist at bedside
[2020-11-26 15:49] LABS: Glucose Urine UA NEG (NEG); Leukocyte Esterase Urine NEG (NEG); Nitrite Urine NEG (NEG); Urine Blood NEG (NEG); Urine Ketones NEG (NEG); Urine Protein NEG (NEG-TRACE)
[2020-11-26 15:54] LABS: Appearance Urine CLEAR; Color Urine YELLOW
--- NOTE | 2020-11-26 15:56 | PM.IMHP ---
History of Present Illness Date of Service: 11/26/20 Chief Complaint: Difficulty breathing, swelling in lower extremities 70 years old lady with PMH of COPD, active smoker, opioid use disorder, breast CA among others who presented to the hospital for worsening shortness of breath, wheezing and increased swelling in her lower extremities for the last few days. The patient reports she is actively smoking 1 pack a day cigarettes for the last 50 years of her life. Reporting that she failed multiple tries to quit smoking. Over the last few days she noticed worsening shortness of breath and dyspnea on exertion with associated wheezes almost all the time her home medications with not help much with problem. In the emergency blood work looked within normal, chest x-ray not showing any infiltrates but noticed to drop her oxygen sat to 80s on room air. Admitted further evaluation and treatment. Review of Systems Review of Systems: No fever, chills but reports generalized weakness and increased swelling in lower extremities No chest pain, palpitation Shortness of breath, dyspnea on exertion coughing with associated wheezes No abdominal pain, nausea or vomiting No urinary symptoms No any rash or wounds PMFSH Medical History Breast cancer Chronic pain COPD (chronic obstructive pulmonary disease) COPD (chronic obstructive pulmonary disease) Depression Fibromyalgia Hypoxia Substance abuse Family History Father No problems noted. Mother No problems noted. Surgical History H/O mastectomy Social History Household Members: Family Housing: House Do you presently have visiting nurse or other home services: No Alcohol intake: never Patient Tobacco Use Status: Current everyday Tobacco user Cigarette Packs Per Day: 1 Cigarettes Per Day: 20 Years Smoked: 50 Second Hand Smoke Exposure: Yes Substance Use Type: Heroin and Other Advance Directives: Yes Advance Directives on File: Yes Advance Directives Date on File: 04/05/20 service: No Meds Allergies Allergy/AdvReac Type Severity Reaction Status Date / Time No Known Allergies Allergy Verified 11/09/20 13:52 [No Known Allergies*] Active Medications: Current Medications Generic Name Dose Route Start Last Admin Trade Name José Manuelq PRN Reason Stop Dose Admin Albuterol Sulfate 2.5 mg 11/26/20 15:54 Albuterol Sulfate (0.083%) 2.5 Mg/3 Ml Vial.Neb INHALE Q2H PRN Shortness of Breath/Wheezing Albuterol/Ipratropium 3 ml 11/26/20 16:00 Albuterol/Iprat 2.5/0.5mg 3 Ml Ampul.Neb INHALE RQ4H WHILE AWAKE ANDREW Furosemide 20 mg 11/26/20 15:54 Furosemide 20 Mg/2 Ml Vial IVPUSH 11/26/20 15:55 ONCE ONE Protocol Azithromycin 500 mg/ Sodium 250 mls @ 125 mls/hr 11/26/20 14:27 11/26/20 15:18 Chloride IV 11/26/20 16:26 125 mls/hr ONCE ONE Administration Home Medications Medication Instructions Recorded Confirmed Last Taken Type albuterol sulfate 90 mcg/actuation 1 inh INHALATION Q4H g 09/09/20 11/26/20 Unknown History aerosol inhaler Advil PM 400 mg BEDTIME 11/26/20 11/26/20 Unknown History Physical Exam Vital Signs and Narrative: Vital Signs: Last Vital Signs Temp 97.9 F 11/26/20 14:37 Pulse 105 H 11/26/20 14:37 Resp 18 11/26/20 14:37 BP 130/64 11/26/20 14:37 Pulse Ox 93 11/26/20 14:37 Body Mass Index 22.6 Const: Other: Constitutional : Alert, oriented, in mild respiratory distress and associated anxiety Neck : Normal inspection, Supple Cardiovascular : RRR, S1 S2, no lower extremity edema Respiratory : Decreased bilateral air entry, no crackles, bilateral expiratory wheezes with associated rhonchi Gastrointestinal: soft, lax, Normal bowel sounds, Non tender Skin : Warm/Dry, No rash Neurological : Alert & oriented x3, No focal deficit Results Labs CBC and Chem 7: 11/26/20 11:51 11/26/20 11:51 Labs: Laboratory Results - last 24 hr 11/26/20 11/26/20 11/26/20 11:51 11:51 11:51 MCV 96.0 MCH 30.3 MCHC 31.6 RDW 14.8 Plt Count 287 MPV 8.5 L Immature Gran % (Auto) 0.3 Neut % (Auto) 57.4 Lymph % (Auto) 29.7 [place] % (Auto) 10.0 Eos % (Auto) 2.1 Baso % (Auto) 0.5 Lymph # (Auto) 2.3 [place] # (Auto) 0.8 Eos # (Auto) 0.2 Baso # (Auto) 0.0 Abs Immat Gran (auto) 0.02 Absolute Neuts (auto) 4.4 Absolute Nucleated RBC 0.000 Nucleated RBC % (auto) 0.0 PT 11.3 INR 1.0 D-Dimer 236 Anion Gap 15 Estim Creat Clear Calc 42.8 Estimated GFR 52 Random Glucose 82 D Lactic Acid Calcium 9.3 D Total Bilirubin 0.3 Direct Bilirubin 0.2 AST 17 ALT 8 Alkaline Phosphatase 114 D Troponin I High Sens B-Natriuretic Peptide Total Protein 7.9 Albumin 4.3 D Urine Color Urine Appearance Urine pH Ur Specific [place] Urine Protein Urine Glucose (UA) Urine Ketones Urine Blood Urine Nitrite Ur Leukocyte Esterase Coronavirus (PCR) Influenza Type A (PCR) Influenza Type B (PCR) RSV RNA Qual (PCR) 11/26/20 11/26/20 11/26/20 11:51 11:51 11:51 MCV MCH MCHC RDW Plt Count MPV Immature Gran % (Auto) Neut % (Auto) Lymph % (Auto) [place] % (Auto) Eos % (Auto) Baso % (Auto) Lymph # (Auto) [place] # (Auto) Eos # (Auto) Baso # (Auto) Abs Immat Gran (auto) Absolute Neuts (auto) Absolute Nucleated RBC Nucleated RBC % (auto) PT INR D-Dimer Anion Gap Estim Creat Clear Calc Estimated GFR Random Glucose Lactic Acid 0.7 Calcium Total Bilirubin Direct Bilirubin AST ALT Alkaline Phosphatase Troponin I High Sens 4.1 B-Natriuretic Peptide 60 Total Protein Albumin Urine Color Urine Appearance Urine pH Ur Specific [place] Urine Protein Urine Glucose (UA) Urine Ketones Urine Blood Urine Nitrite Ur Leukocyte Esterase Coronavirus (PCR) NEGATIVE Influenza Type A (PCR) NEGATIVE Influenza Type B (PCR) NEGATIVE RSV RNA Qual (PCR) NEGATIVE 11/26/20 15:39 MCV MCH MCHC RDW Plt Count MPV Immature Gran % (Auto) Neut % (Auto) Lymph % (Auto) [place] % (Auto) Eos % (Auto) Baso % (Auto) Lymph # (Auto) [place] # (Auto) Eos # (Auto) Baso # (Auto) Abs Immat Gran (auto) Absolute Neuts (auto) Absolute Nucleated RBC Nucleated RBC % (auto) PT INR D-Dimer Anion Gap Estim Creat Clear Calc Estimated GFR Random Glucose Lactic Acid Calcium Total Bilirubin Direct Bilirubin AST ALT Alkaline Phosphatase Troponin I High Sens B-Natriuretic Peptide Total Protein Albumin Urine Color YELLOW Urine Appearance CLEAR Urine pH 6.0 Ur Specific [place] 1.020 Urine Protein NEG Urine Glucose (UA) NEG Urine Ketones NEG Urine Blood NEG Urine Nitrite NEG Ur Leukocyte Esterase NEG Coronavirus (PCR) Influenza Type A (PCR) Influenza Type B (PCR) RSV RNA Qual (PCR) Imaging Radiologist's Impressions: Impressions Chest X-Ray 11/26/20 11:44 IMPRESSION: COPD, but no acute cardiopulmonary process. Assessment and Plan (1) Acute respiratory failure with hypoxia: Status: Acute (2) Acute exacerbation of chronic obstructive airways disease: Status: Acute (3) Smoking addiction: Status: Acute (4) Anxiety attack: Status: Acute (5) Bilateral edema of lower extremity: Status: Acute 70 years old lady with PMH of COPD, active smoker, opioid use disorder, breast CA among others who presented to the hospital for worsening shortness of breath, wheezing and increased swelling in her lower extremities for the last few days. Acute hypoxic respiratory failure Secondary to COPD exacerbation O2 sat below 88 on room air Start oxygen supplement and wean as tolerated Start IV steroids Start duo nebs around the clock To use albuterol nebulizer as needed Started azithromycin for anti-inflammatory effect Anxiety attacks Likely associated with feeling of dyspnea To use Ativan and Atarax as needed Smoking addiction Advised about quitting smoking to use nicotine patches Bilateral lower extremity swelling Likely secondary to diastolic dysfunction from chronic COPD Start gentle diuresis DVT PPX Lovenox
[2020-11-26] MEDS: Albuterol/Iprat 2.5/0.5MG 3 ML AMPUL.NEB INHALE ×2 (16:21→20:01)
[2020-11-26 16:23] LABS: VBG Base Excess 0.2 mmol/L; VBG HCO3 27 mmol/L (22-26); VBG pCO2 52 mmHg; VBG pH 7.32 (7.32-7.43); VBG pO2 71 mmHg
[2020-11-26] MEDS: Furosemide 20 MG/2 ML VIAL IVPUSH (17:27)
--- NOTE | 2020-11-26 18:04 | PC.NURSE ---
Report given to receiving nurse Conroy.
[2020-11-26] MEDS: Enoxaparin Sodium 40 MG/0.4 ML SYRINGE SUBCUT (20:19)
[2020-11-26] MEDS: Nicotine 14 MG PATCH.TD24 TRANSDERMA (20:20)
[2020-11-26] MEDS: 0.9 % Sodium Chloride Flush 3 ML SYRINGE IVFLUSH ×2 (20:21→20:22)
[2020-11-26] MEDS: LORazepam 0.5 MG TABLET 0.25 MG PO (20:26)
[2020-11-27 03:07] VITALS: BP 135/60; PULSE 99; RESP 18; TEMP 36.9; O2SAT 92
[2020-11-27 06:43] LABS: MANUAL DIFF FLAG NO
[2020-11-27 06:53] VITALS: BP 140/70; PULSE 97; RESP 20; TEMP 35.5; O2SAT 93
[2020-11-27 06:54] LABS: Basophils Percent Auto 0.1 % (0-2); Eosinophils Percent Auto 0.1 % (0-4); Hematocrit 38.2 % (37-47); Hemoglobin 12.1 g/dl (12.0-16.0); Imm Gran Abs Auto 0.03 X10*3/uL (0.00-0.03); Imm Gran Pct Auto 0.3 % (0.0-0.4); Lymphocytes Absolute Auto 1.5 X10*3/uL (1.2-4.9); Mean Corpuscular HGB Conc 31.7 g/dl (31.0-35.0); Mean Corpuscular Hemoglobin 30.5 pg (27.0-33.0); Mean Corpuscular Volume 96.2 fL (80-98); Mean Platelet Volume 8.6 fL (9.4-12.3); Monocytes Absolute Auto 1.1 X10*3/uL (0.1-1.2); Monocytes Percent Auto 11.6 % (2-11); Neutrophils Absolute Auto 7.1 X10*3/uL (2.0-8.3); Neutrophils Percent Auto 72.9 % (45-73); Platelet Count 257 X10*3/uL (160-400); Red Blood Count 3.97 X10*6/uL (4.20-5.50); Red Cell Distribution Width 14.8 % (11.0-16.0); White Blood Count 9.7 X10*3/uL (4.8-10.8)
[2020-11-27 07:13] LABS: Anion Gap 14 (12-20); Blood Urea Nitrogen 21 mg/dL (9-16); Calcium 8.5 mg/dL (8.4-10.2); Carbon Dioxide 32 mmol/L (22-29); Chloride 102 mmol/L (96-108); Creatinine Clr Calc Pharmacy 46.4; Estimated Glomerular Filt Rate 57; Glucose Random 97 mg/dL (60-115); Potassium 3.7 mmol/L (3.3-5.1); Sodium 144 mmol/L (135-145)
[2020-11-27 07:48] VITALS: PULSE 98; O2SAT 93
[2020-11-27] MEDS: Albuterol/Iprat 2.5/0.5MG 3 ML AMPUL.NEB INHALE (07:48)
[2020-11-27] MEDS: Nicotine 14 MG PATCH.TD24 TRANSDERMA (09:00)
[2020-11-27] MEDS: 0.9 % Sodium Chloride Flush 3 ML SYRINGE IVFLUSH ×2 (09:01→16:09)
[2020-11-27] MEDS: methylPREDNISolone Sod Succ 40 MG/ML VIAL IVPUSH ×2 (09:02→20:50)
[2020-11-27] MEDS: Furosemide 20 MG/2 ML VIAL IVPUSH (09:02)
[2020-11-27] MEDS: Buprenorphine/Naloxone 8/2 mg FILM 2 FILM SUBLINGUAL (09:10)
[2020-11-27] MEDS: LORazepam 0.5 MG TABLET 0.25 MG PO ×2 (09:15→20:50)
[2020-11-27] MEDS: hydrOXYzine HCL 25 MG TABLET PO ×2 (09:29→20:51)
--- NOTE | 2020-11-27 09:38 | MHC.CM.PN ---
CM met with Patient and her Son/HCP/Adriel @ [phone] and addressed IMM with them, providing them with the original and placing a copy on the chart. Patient lives in a basement apartment in a house with her Son and his roommate upstairs.Patient does not use O2 at home because both she and her Son smoke and it has not been allowed. Patient's goal is to return home with a new [facility] referral vs [facility]/Pulmonary rehab (PT eval needed). [facility] has initiated and will follow for dc planning. PCP is Dr. Angel Lyles. Patient has a cane.
[2020-11-27 11:08] VITALS: BP 135/67; PULSE 99; RESP 18; TEMP 36; O2SAT 91
--- NOTE | 2020-11-27 11:46 | P.PNIM_ITS ---
Subjective Subjective Date of Service: 11/27/20 Interval History: Seen and evaluated this morning Feels little better but still wheezy and having difficulty breathing with dyspnea on exertion Denies any fever or chills No reported other overnight events Review of Systems No fever, chills but reports generalized weakness Decreased swelling in lower extremities No chest pain, palpitation Shortness of breath, dyspnea on exertion coughing with associated wheezes No abdominal pain, nausea or vomiting No urinary symptoms No any rash or wounds Physical Exam Vital Signs: Vital Signs: Last Vital Signs Temp 96.8 F 11/27/20 11:08 Pulse 99 11/27/20 11:08 Resp 18 11/27/20 11:08 BP 135/67 11/27/20 11:08 Pulse Ox 91 L 11/27/20 11:08 Body Mass Index 22.6 Const: Other: Constitutional : Alert, oriented, in mild respiratory distress and associated anxiety Neck : Normal inspection, Supple Cardiovascular : RRR, S1 S2, no lower extremity edema Respiratory : Decreased bilateral air entry, no crackles, trace bilateral expiratory wheezes with associated rhonchi Gastrointestinal: soft, lax, Normal bowel sounds, Non tender Skin : Warm/Dry, No rash Neurological : Alert & oriented x3, No focal deficit Objective Data Current Medications Generic Name Dose Route Start Last Admin Trade Name Freq PRN Reason Stop Dose Admin Acetaminophen 650 mg 11/26/20 19:02 Acetaminophen 325 Mg Tablet PO Q6H PRN Pain, Mild (Pain Scale 1-3) Albuterol Sulfate 2.5 mg 11/26/20 15:54 Albuterol Sulfate (0.083%) 2.5 Mg/3 Ml Vial.Neb INHALE Q2H PRN Shortness of Breath/Wheezing Albuterol/Ipratropium 3 ml 11/26/20 16:00 11/27/20 11:05 Albuterol/Iprat 2.5/0.5mg 3 Ml Ampul.Neb INHALE Not Given RQ4H WHILE AWAKE [facility] Azithromycin 250 mg 11/27/20 14:00 Azithromycin 250 Mg Tablet PO Q24H ANDREW Buprenorphine/Naloxone 1 film 11/27/20 21:00 Buprenorphine/Naloxone 8/2 Mg Film SUBLINGUAL BID ANDREW Enoxaparin Sodium 40 mg 11/26/20 20:00 11/26/20 20:19 Enoxaparin Sodium 40 Mg/0.4 Ml Syringe SUBCUT 40 mg Q24H ANDREW Administration Furosemide 20 mg 11/27/20 09:00 11/27/20 09:02 Furosemide 20 Mg/2 Ml Vial IVPUSH 20 mg DAILY ANDREW Administration Protocol Hydroxyzine HCl 25 mg 11/26/20 16:04 11/27/20 09:29 Hydroxyzine Hcl 25 Mg Tablet PO 25 mg Q6H PRN Administration anxiety/restlessness Ibuprofen 400 mg 11/26/20 19:02 Ibuprofen 400 Mg Tablet PO Q6H PRN Fever or Pain, mild Lorazepam 0.25 mg 11/26/20 16:04 11/27/20 09:15 Lorazepam 0.5 Mg Tablet PO 0.25 mg Q6H PRN Administration anxiety/restlessness Methylprednisolone Sodium Succinate 40 mg 11/27/20 09:00 11/27/20 09:02 Methylprednisolone Sod Succ 40 Mg/Ml Vial IVPUSH 40 mg BID ANDREW Administration Nicotine 14 mg 11/26/20 19:02 11/27/20 09:00 Nicotine 14 Mg Patch.Td24 TRANSDERMA 14 mg DAILY ANDRWE Administration Ondansetron HCl 4 mg 11/26/20 19:02 Ondansetron Hcl 4 Mg/2 Ml Vial IVPUSH Q8H PRN Nausea and Vomiting Sodium Chloride 3 ml 11/26/20 19:02 11/27/20 09:01 0.9 % Sodium Chloride Flush 3 Ml Syringe IVFLUSH 3 ml QSHIFT ANDREW Administration Labs CBC & Chem 7: 11/27/20 05:33 11/27/20 05:33 Assessment and Plan (1) Acute respiratory failure with hypoxia: Status: Acute (2) Acute exacerbation of chronic obstructive airways disease: Status: Acute (3) Smoking addiction: Status: Acute (4) Anxiety attack: Status: Acute (5) Bilateral edema of lower extremity: Status: Acute Assessment and Plan: 70 years old lady with PMH of COPD, active smoker, opioid use disorder, breast CA among others who presented to the hospital for worsening shortness of breath, wheezing and increased swelling in her lower extremities for the last few days. Acute hypoxic respiratory failure Secondary to COPD exacerbation O2 sat below 88 on room air Continue oxygen supplement and wean as tolerated Continue IV steroids Continue duo nebs around the clock To use albuterol nebulizer as needed Continue azithromycin for anti-inflammatory effect Anxiety attacks Likely associated with feeling of dyspnea To use Ativan and Atarax as needed Smoking addiction Advised about quitting smoking to use nicotine patches Bilateral lower extremity swelling Likely secondary to diastolic dysfunction from chronic COPD Improving Continue gentle diuresis for today DVT PPX Lovenox
[2020-11-27] MEDS: Azithromycin 250 MG TABLET PO (13:43)
[2020-11-27 15:39] VITALS: BP 139/77; PULSE 108; RESP 18; TEMP 37.2; O2SAT 91
[2020-11-27 19:32] VITALS: BP 128/83; PULSE 108; RESP 18; TEMP 36.9; O2SAT 92
[2020-11-27] MEDS: Buprenorphine/Naloxone 8/2 mg FILM 1 FILM SUBLINGUAL (20:50)
[2020-11-27] MEDS: Enoxaparin Sodium 40 MG/0.4 ML SYRINGE SUBCUT (20:51)
[2020-11-28] VITALS (8 sets, daily range): BP systolic 140–155; BP diastolic 58–80; PULSE 75–112; RESP 18–20; TEMP 36.1–37.2; O2SAT 90–95
[2020-11-28] MEDS: 0.9 % Sodium Chloride Flush 3 ML SYRINGE IVFLUSH ×4 (00:49→20:58)
[2020-11-28] MEDS: Albuterol Sulfate (0.083%) 2.5 MG/3 ML VIAL.NEB INHALE (00:51)
[2020-11-28 05:13] LABS: Anion Gap 12 (12-20); Blood Urea Nitrogen 30 mg/dL (9-16); Calcium 8.5 mg/dL (8.4-10.2); Carbon Dioxide 32 mmol/L (22-29); Chloride 100 mmol/L (96-108); Creatinine Clr Calc Pharmacy 49.5; Estimated Glomerular Filt Rate > 60; Glucose Random 119 mg/dL (60-115); Potassium 4.4 mmol/L (3.3-5.1); Sodium 140 mmol/L (135-145)
--- NOTE | 2020-11-28 08:06 | P.CDIC_ITS ---
CDI Concurrent Query Service Date: 11/28/20 Documentation Clarification: Please clarify if you are treating a proba ble/suspected/likely or confirmed: Chronic diastolic congestive heart failure Acute on chronic diastolic congestive heart failure Please specify if known PLEASE DO NOT DELETE/MODIFY EXISTING CONTENT Additional information is needed in order to code to the highest accuracy and appropriate Severity of Illness (SOI). Please clarify the information noted below in your progress notes and discharge summary. Risk Factors/Clinical Indicators/Treatments Ed: PMH Congestive heart failure PN: Bilateral lower extremity edema likely 2nd to diastolic dysfunction from chronic COPD. BNP 60 edema, SOB, smoker, mild respiratory distress. CDS: Lakshmi Banegas CCS, CDIS Contact Number: [phone] Please Review the information above and exercise your independent professional judgment in responding to the query. If you concur, pleas document in the PROGRESS NOTES and DISCHARGE SUMMARY. If you do not agree with the query, please document in the query above. THIS QUERY IS PART OF THE PERMANENT MEDICAL RECORD
[2020-11-28 08:49] LABS: VBG Base Excess 0.2 mmol/L; VBG HCO3 27 mmol/L (22-26); VBG pCO2 52 mmHg; VBG pH 7.32 (7.32-7.43); VBG pO2 71 mmHg
[2020-11-28] MEDS: methylPREDNISolone Sod Succ 40 MG/ML VIAL IVPUSH ×2 (09:36→20:56)
[2020-11-28] MEDS: Nicotine 14 MG PATCH.TD24 TRANSDERMA (09:36)
[2020-11-28] MEDS: Buprenorphine/Naloxone 8/2 mg FILM 1 FILM SUBLINGUAL ×2 (09:36→20:56)
[2020-11-28] MEDS: Acetaminophen 325 MG TABLET 650 MG PO ×2 (09:36→20:56)
[2020-11-28] MEDS: Ibuprofen 400 MG TABLET PO (09:37)
--- NOTE | 2020-11-28 13:52 | HO.PM.IMPN ---
Subjective Subjective Date of Service: 11/28/20 Interval History: Seen and evaluated this morning Feels little better but still wheezy and having difficulty breathing with dyspnea on exertion, on 2L of O2 to keep sats in 90s Denies any fever or chills No reported other overnight events Review of Systems No fever, chills but reports generalized weakness Decreased swelling in lower extremities No chest pain, palpitation Shortness of breath, dyspnea on exertion coughing with associated wheezes No abdominal pain, nausea or vomiting No urinary symptoms No any rash or wounds Physical Exam Vital Signs: Vital Signs: Last Vital Signs Temp 98.8 F 11/28/20 12:00 Pulse 98 11/28/20 12:00 Resp 20 11/28/20 12:00 BP 141/58 H 11/28/20 12:00 Pulse Ox 94 11/28/20 12:00 Body Mass Index 22.6 Const: Other: Constitutional : Alert, oriented, in mild respiratory distress and associated anxiety Neck : Normal inspection, Supple Cardiovascular : RRR, S1 S2, trace lower extremity edema Respiratory : Decreased bilateral air entry, no crackles, trace bilateral expiratory wheezes with associated rhonchi Gastrointestinal: soft, lax, Normal bowel sounds, Non tender Skin : Warm/Dry, No rash Neurological : Alert & oriented x3, No focal deficit Objective Data Current Medications Generic Name Dose Route Start Last Admin Trade Name José Manuelq PRN Reason Stop Dose Admin Acetaminophen 650 mg 11/26/20 19:02 11/28/20 09:36 Acetaminophen 325 Mg Tablet PO 650 mg Q6H PRN Administration Pain, Mild (Pain Scale 1-3) Albuterol Sulfate 2.5 mg 11/26/20 15:54 11/28/20 00:51 Albuterol Sulfate (0.083%) 2.5 Mg/3 Ml Vial.Neb INHALE 2.5 mg Q2H PRN Administration Shortness of Breath/Wheezing Albuterol/Ipratropium 3 ml 11/28/20 12:00 11/28/20 11:29 Albuterol/Iprat 2.5/0.5mg 3 Ml Ampul.Neb INHALE Not Given RQ6H ANDREW Azithromycin 250 mg 11/27/20 14:00 11/27/20 13:43 Azithromycin 250 Mg Tablet PO 250 mg Q24H ANDREW Administration Buprenorphine/Naloxone 1 film 11/27/20 21:00 11/28/20 09:36 Buprenorphine/Naloxone 8/2 Mg Film SUBLINGUAL 1 film BID ANDREW Administration Enoxaparin Sodium 40 mg 11/26/20 20:00 11/27/20 20:51 Enoxaparin Sodium 40 Mg/0.4 Ml Syringe SUBCUT 40 mg Q24H ANDREW Administration Hydroxyzine HCl 25 mg 11/26/20 16:04 11/27/20 20:51 Hydroxyzine Hcl 25 Mg Tablet PO 25 mg Q6H PRN Administration anxiety/restlessness Ibuprofen 400 mg 11/26/20 19:02 11/28/20 09:37 Ibuprofen 400 Mg Tablet PO 400 mg Q6H PRN Administration Fever or Pain, mild Lorazepam 0.25 mg 11/26/20 16:04 11/27/20 20:50 Lorazepam 0.5 Mg Tablet PO 0.25 mg Q6H PRN Administration anxiety/restlessness Methylprednisolone Sodium Succinate 40 mg 11/27/20 09:00 11/28/20 09:36 Methylprednisolone Sod Succ 40 Mg/Ml Vial IVPUSH 40 mg BID ANDREW Administration Nicotine 14 mg 11/26/20 19:02 11/28/20 09:36 Nicotine 14 Mg Patch.Td24 TRANSDERMA 14 mg DAILY ANDREW Administration Ondansetron HCl 4 mg 11/26/20 19:02 Ondansetron Hcl 4 Mg/2 Ml Vial IVPUSH Q8H PRN Nausea and Vomiting Sodium Chloride 3 ml 11/26/20 19:02 11/28/20 09:36 0.9 % Sodium Chloride Flush 3 Ml Syringe IVFLUSH 3 ml QSHIFT ANDREW Administration Labs CBC & Chem 7: 11/27/20 05:33 11/28/20 04:06 Microbiology Microbiology Results: Microbiology 11/26/20 12:03 Blood - Venous Blood Culture - Preliminary No growth after 24 hours. 11/26/20 11:51 Blood - Venous Blood Culture - Preliminary No growth after 24 hours. Assessment and Plan (1) Acute respiratory failure with hypoxia: Status: Acute (2) Acute exacerbation of chronic obstructive airways disease: Status: Acute (3) Smoking addiction: Status: Acute (4) Anxiety attack: Status: Acute (5) Bilateral edema of lower extremity: Status: Acute Assessment and Plan: 70 years old lady with PMH of COPD, active smoker, opioid use disorder, breast CA among others who presented to the hospital for worsening shortness of breath, wheezing and increased swelling in her lower extremities for the last few days. Acute hypoxic respiratory failure Secondary to COPD exacerbation O2 sat early 90s on 2-3L O2 today Continue oxygen supplement and wean as tolerated Continue IV steroids Continue duo nebs around the clock To use albuterol nebulizer as needed Continue azithromycin for anti-inflammatory effect Anxiety attacks better controlled Likely associated with feeling of dyspnea To use Ativan and Atarax as needed Smoking addiction Advised about quitting smoking to use nicotine patches Bilateral lower extremity swelling Likely secondary to diastolic dysfunction from chronic COPD Improving Continue gentle diuresis for today DVT PPX Lovenox
[2020-11-28] MEDS: Azithromycin 250 MG TABLET PO (14:07)
[2020-11-28] MEDS: Furosemide 20 MG TABLET PO (14:07)
[2020-11-28] MEDS: LORazepam 0.5 MG TABLET 0.25 MG PO (14:07)
[2020-11-28] MEDS: Albuterol/Iprat 2.5/0.5MG 3 ML AMPUL.NEB INHALE ×2 (18:01→23:57)
[2020-11-28] MEDS: hydrOXYzine HCL 25 MG TABLET PO (20:56)
[2020-11-28] MEDS: Enoxaparin Sodium 40 MG/0.4 ML SYRINGE SUBCUT (20:56)
[2020-11-29] VITALS (9 sets, daily range): BP systolic 128–171; BP diastolic 66–80; PULSE 77–115; RESP 18–22; TEMP 36.7–37.2; O2SAT 85–96
[2020-11-29] MEDS: LORazepam 0.5 MG TABLET 0.25 MG PO ×2 (01:00→16:40)
[2020-11-29] MEDS: hydrOXYzine HCL 25 MG TABLET PO ×2 (02:37→14:36)
[2020-11-29] MEDS: 0.9 % Sodium Chloride Flush 3 ML SYRINGE IVFLUSH ×3 (08:29→20:20)
[2020-11-29] MEDS: Furosemide 20 MG TABLET PO (08:29)
[2020-11-29] MEDS: Buprenorphine/Naloxone 8/2 mg FILM 1 FILM SUBLINGUAL ×2 (08:29→20:20)
[2020-11-29] MEDS: Nicotine 14 MG PATCH.TD24 TRANSDERMA (08:30)
[2020-11-29] MEDS: methylPREDNISolone Sod Succ 40 MG/ML VIAL IVPUSH ×2 (08:30→20:20)
[2020-11-29] MEDS: Albuterol/Iprat 2.5/0.5MG 3 ML AMPUL.NEB INHALE (12:45)
[2020-11-29] MEDS: Azithromycin 250 MG TABLET PO (14:36)
[2020-11-29] MEDS: Acetaminophen 325 MG TABLET 650 MG PO (14:36)
[2020-11-29] MEDS: Ibuprofen 400 MG TABLET PO (14:38)
--- NOTE | 2020-11-29 14:40 | HO.PM.IMPN ---
Subjective Subjective Date of Service: 11/29/20 Interval History: Seen and evaluated this morning Feels better but still wheezy and having difficulty breathing with dyspnea on exertion, on 2L of O2 to keep sats in 90s She cannot have oxygen at home as she, her son and the other tonny who lives there are active smokers Denies any fever or chills No reported other overnight events Review of Systems No fever, chills but reports generalized weakness Decreased swelling in lower extremities No chest pain, palpitation Shortness of breath, dyspnea on exertion coughing with associated wheezes No abdominal pain, nausea or vomiting No urinary symptoms No any rash or wounds Physical Exam Vital Signs: Vital Signs: Last Vital Signs Temp 98.1 F 11/29/20 10:52 Pulse 105 H 11/29/20 12:47 Resp 20 11/29/20 10:52 BP 128/75 11/29/20 10:52 Pulse Ox 93 11/29/20 10:52 Body Mass Index 22.6 Const: Other: Constitutional : Alert, oriented, in mild respiratory distress and associated anxiety Neck : Normal inspection, Supple Cardiovascular : RRR, S1 S2, trace lower extremity edema Respiratory : Decreased bilateral air entry, no crackles, trace bilateral expiratory wheezes with associated rhonchi Gastrointestinal: soft, lax, Normal bowel sounds, Non tender Skin : Warm/Dry, No rash Neurological : Alert & oriented x3, No focal deficit Objective Data Current Medications Generic Name Dose Route Start Last Admin Trade Name Freq PRN Reason Stop Dose Admin Acetaminophen 650 mg 11/26/20 19:02 11/29/20 14:36 Acetaminophen 325 Mg Tablet PO 650 mg Q6H PRN Administration Pain, Mild (Pain Scale 1-3) Albuterol Sulfate 2.5 mg 11/26/20 15:54 11/28/20 00:51 Albuterol Sulfate (0.083%) 2.5 Mg/3 Ml Vial.Neb INHALE 2.5 mg Q2H PRN Administration Shortness of Breath/Wheezing Albuterol/Ipratropium 3 ml 11/28/20 12:00 11/29/20 12:45 Albuterol/Iprat 2.5/0.5mg 3 Ml Ampul.Neb INHALE 3 ml RQ6H ANDREW Administration Azithromycin 250 mg 11/27/20 14:00 11/29/20 14:36 Azithromycin 250 Mg Tablet PO 250 mg Q24H ANDREW Administration Buprenorphine/Naloxone 1 film 11/27/20 21:00 11/29/20 08:29 Buprenorphine/Naloxone 8/2 Mg Film SUBLINGUAL 1 film BID ANDREW Administration Enoxaparin Sodium 40 mg 11/26/20 20:00 11/28/20 20:56 Enoxaparin Sodium 40 Mg/0.4 Ml Syringe SUBCUT 40 mg Q24H ANDREW Administration Hydroxyzine HCl 25 mg 11/26/20 16:04 11/29/20 14:36 Hydroxyzine Hcl 25 Mg Tablet PO 25 mg Q6H PRN Administration anxiety/restlessness Ibuprofen 400 mg 11/26/20 19:02 11/29/20 14:38 Ibuprofen 400 Mg Tablet PO 400 mg Q6H PRN Administration Fever or Pain, mild Lorazepam 0.25 mg 11/26/20 16:04 11/29/20 01:00 Lorazepam 0.5 Mg Tablet PO 0.25 mg Q6H PRN Administration anxiety/restlessness Methylprednisolone Sodium Succinate 40 mg 11/27/20 09:00 11/29/20 08:30 Methylprednisolone Sod Succ 40 Mg/Ml Vial IVPUSH 40 mg BID ANDREW Administration Nicotine 14 mg 11/26/20 19:02 11/29/20 08:30 Nicotine 14 Mg Patch.Td24 TRANSDERMA 14 mg DAILY ANDREW Administration Ondansetron HCl 4 mg 11/26/20 19:02 Ondansetron Hcl 4 Mg/2 Ml Vial IVPUSH Q8H PRN Nausea and Vomiting Sodium Chloride 3 ml 11/26/20 19:02 11/29/20 08:29 0.9 % Sodium Chloride Flush 3 Ml Syringe IVFLUSH 3 ml QSHIFT ANDREW Administration Labs CBC & Chem 7: 11/27/20 05:33 11/28/20 04:06 Microbiology Microbiology Results: Microbiology 11/26/20 12:03 Blood - Venous Blood Culture - Preliminary No growth after 48 hours. 11/26/20 11:51 Blood - Venous Blood Culture - Preliminary No growth after 48 hours. Assessment and Plan (1) Acute respiratory failure with hypoxia: Status: Acute (2) Acute exacerbation of chronic obstructive airways disease: Status: Acute (3) Smoking addiction: Status: Acute (4) Anxiety attack: Status: Acute (5) Bilateral edema of lower extremity: Status: Acute Assessment and Plan: 70 years old lady with PMH of COPD, active smoker, opioid use disorder, breast CA among others who presented to the hospital for worsening shortness of breath, wheezing and increased swelling in her lower extremities for the last few days. Acute hypoxic respiratory failure Secondary to COPD exacerbation O2 sat early 90s on 2-3L O2 today Continue oxygen supplement and wean of the oxygen as she cannot oxygen at home for active Gabrielle smoking Continue IV steroids Continue duo nebs around the clock To use albuterol nebulizer as needed Continue azithromycin for anti-inflammatory effect Anxiety attacks better controlled Likely associated with feeling of dyspnea Continue use Ativan and Atarax as needed Smoking addiction Advised about quitting smoking Continue use nicotine patches Bilateral lower extremity swelling Likely secondary to diastolic dysfunction from chronic COPD Improving Continue gentle diuresis for today DVT PPX Lovenox
--- NOTE | 2020-11-29 15:21 | MHC.CM.PN ---
updated imm with pt we discussed str as a dc possibiluty pt wants to return home with her son and hvns
--- NOTE | 2020-11-29 18:57 | PC.NURSE ---
suboxone SL film found in pt bed during care. reported to RN Harper that it fell out of her purse where she kept her own meds. when this RN went to discuss/ remove controlled meds from pt room to keep in pharmacy until discharge, pt denied having any in her purse and quickly stated that no one could look in her purse. Advised pt against taking additional suboxone and encouraged to discuss further with this RN, she again stated that she did not have any in her purse. Nursing landscaping supervisor and MD made aware. single suboxone found is now locked in pharmacy. no new orders at this time. will cont to monitor and assess.
[2020-11-29] MEDS: Enoxaparin Sodium 40 MG/0.4 ML SYRINGE SUBCUT (20:19)
[2020-11-30] VITALS (10 sets, daily range): BP systolic 142–172; BP diastolic 65–80; PULSE 95–116; RESP 17–22; TEMP 36.1–36.9; O2SAT 91–96
[2020-11-30] MEDS: Albuterol/Iprat 2.5/0.5MG 3 ML AMPUL.NEB INHALE ×2 (00:31→20:54)
[2020-11-30] MEDS: LORazepam 0.5 MG TABLET 0.25 MG PO ×3 (03:10→16:02)
[2020-11-30] MEDS: methylPREDNISolone Sod Succ 40 MG/ML VIAL IVPUSH ×2 (09:29→20:21)
[2020-11-30] MEDS: Buprenorphine/Naloxone 8/2 mg FILM 1 FILM SUBLINGUAL ×2 (09:30→20:22)
[2020-11-30] MEDS: Nicotine 14 MG PATCH.TD24 TRANSDERMA (09:30)
[2020-11-30] MEDS: 0.9 % Sodium Chloride Flush 3 ML SYRINGE IVFLUSH ×3 (09:32→23:40)
[2020-11-30] MEDS: Albuterol Sulfate (0.083%) 2.5 MG/3 ML VIAL.NEB INHALE (11:15)
--- NOTE | 2020-11-30 12:02 | HO.PM.IMPN ---
Subjective Subjective Date of Service: 11/30/20 Interval History: still very sob Cardiovascular Cardiovascular: Reports no additional cardiovascular complaints Gastrointestinal Gastrointestinal: Reports no additional gastrointestinal complaints Physical Exam Vital Signs: Vital Signs: Last Vital Signs Temp 97 F 11/30/20 10:59 Pulse 104 H 11/30/20 11:16 Resp 22 H 11/30/20 10:59 BP 150/70 H 11/30/20 10:59 Pulse Ox 94 11/30/20 10:59 Body Mass Index 22.6 General: AO X 3, dyspneic Resp: dimished, exp wheezes CVS: S1,S2,RRR GI: soft, non tender, non distended Neuro: motor grossly intact Psych: appropriate affect Objective Data Current Medications Generic Name Dose Route Start Last Admin Trade Name Freq PRN Reason Stop Dose Admin Acetaminophen 650 mg 11/26/20 19:02 11/29/20 14:36 Acetaminophen 325 Mg Tablet PO 650 mg Q6H PRN Administration Pain, Mild (Pain Scale 1-3) Albuterol Sulfate 2.5 mg 11/26/20 15:54 11/30/20 11:15 Albuterol Sulfate (0.083%) 2.5 Mg/3 Ml Vial.Neb INHALE 2.5 mg Q2H PRN Administration Shortness of Breath/Wheezing Albuterol/Ipratropium 3 ml 11/28/20 12:00 11/30/20 06:03 Albuterol/Iprat 2.5/0.5mg 3 Ml Ampul.Neb INHALE Not Given RQ6H ANDREW Azithromycin 250 mg 11/27/20 14:00 11/29/20 14:36 Azithromycin 250 Mg Tablet PO 250 mg Q24H ANDREW Administration Buprenorphine/Naloxone 1 film 11/27/20 21:00 11/30/20 09:30 Buprenorphine/Naloxone 8/2 Mg Film SUBLINGUAL 1 film BID ANDREW Administration Enoxaparin Sodium 40 mg 11/26/20 20:00 11/29/20 20:19 Enoxaparin Sodium 40 Mg/0.4 Ml Syringe SUBCUT 40 mg Q24H ANDREW Administration Hydroxyzine HCl 25 mg 11/26/20 16:04 11/29/20 14:36 Hydroxyzine Hcl 25 Mg Tablet PO 25 mg Q6H PRN Administration anxiety/restlessness Ibuprofen 400 mg 11/26/20 19:02 11/29/20 14:38 Ibuprofen 400 Mg Tablet PO 400 mg Q6H PRN Administration Fever or Pain, mild Lorazepam 0.25 mg 11/26/20 16:04 11/30/20 11:31 Lorazepam 0.5 Mg Tablet PO 0.25 mg Q6H PRN Administration anxiety/restlessness Methylprednisolone Sodium Succinate 40 mg 11/27/20 09:00 11/30/20 09:29 Methylprednisolone Sod Succ 40 Mg/Ml Vial IVPUSH 40 mg BID ANDREW Administration Nicotine 14 mg 11/26/20 19:02 11/30/20 09:30 Nicotine 14 Mg Patch.Td24 TRANSDERMA 14 mg DAILY ANDREW Administration Ondansetron HCl 4 mg 11/26/20 19:02 Ondansetron Hcl 4 Mg/2 Ml Vial IVPUSH Q8H PRN Nausea and Vomiting Sodium Chloride 3 ml 11/26/20 19:02 11/30/20 09:32 0.9 % Sodium Chloride Flush 3 Ml Syringe IVFLUSH 3 ml QSHIFT ANDREW Administration Labs CBC & Chem 7: 11/27/20 05:33 11/28/20 04:06 Microbiology Microbiology Results: Microbiology 11/26/20 12:03 Blood - Venous Blood Culture - Preliminary No growth after 48 hours. 11/26/20 11:51 Blood - Venous Blood Culture - Preliminary No growth after 48 hours. Assessment and Plan (1) Acute respiratory failure with hypoxia: Status: Acute (2) Acute exacerbation of chronic obstructive airways disease: Status: Acute (3) Smoking addiction: Status: Acute (4) Anxiety attack: Status: Acute (5) Bilateral edema of lower extremity: Status: Acute Assessment and Plan: 70 years old lady with PMH of COPD, active smoker, opioid use disorder, breast CA among others who presented to the hospital for worsening shortness of breath, wheezing and increased swelling in her lower extremities for the last few days. Acute hypoxic respiratory failure Secondary to COPD exacerbation Continue oxygen supplement and wean of the oxygen as she cannot oxygen at home due to active smoking Continue IV steroids Continue duo nebs around the clock To use albuterol nebulizer as needed Continue azithromycin for anti-inflammatory effect Anxiety attacks better controlled Likely associated with feeling of dyspnea Continue use Ativan and Atarax as needed Smoking addiction Advised about quitting smoking Continue use nicotine patches Bilateral lower extremity swelling Likely secondary to diastolic dysfunction from chronic COPD Improved with diuresis DVT PPX Lovenox
[2020-11-30] MEDS: Azithromycin 250 MG TABLET PO (13:59)
[2020-11-30] MEDS: hydrOXYzine HCL 25 MG TABLET PO ×2 (13:59→20:22)
[2020-11-30] MEDS: Enoxaparin Sodium 40 MG/0.4 ML SYRINGE SUBCUT (20:21)
[2020-12-01] VITALS (9 sets, daily range): BP systolic 165–182; BP diastolic 77–82; PULSE 96–120; RESP 19–22; TEMP 36–37.7; O2SAT 92–95
[2020-12-01] MEDS: LORazepam 0.5 MG TABLET 0.25 MG PO ×2 (01:49→12:58)
[2020-12-01] MEDS: hydrOXYzine HCL 25 MG TABLET PO ×2 (03:21→21:13)
[2020-12-01] MEDS: Albuterol/Iprat 2.5/0.5MG 3 ML AMPUL.NEB INHALE ×3 (06:14→18:23)
[2020-12-01] MEDS: methylPREDNISolone Sod Succ 40 MG/ML VIAL IVPUSH ×2 (08:01→21:09)
[2020-12-01] MEDS: Nicotine 14 MG PATCH.TD24 TRANSDERMA (08:02)
[2020-12-01] MEDS: 0.9 % Sodium Chloride Flush 3 ML SYRINGE IVFLUSH ×3 (08:06→21:09)
[2020-12-01] MEDS: Buprenorphine/Naloxone 8/2 mg FILM 1 FILM SUBLINGUAL ×2 (09:31→21:09)
--- NOTE | 2020-12-01 09:41 | HO.PM.IMPN ---
Subjective Subjective Date of Service: 12/01/20 Interval History: still sob Cardiovascular Cardiovascular: Reports no additional cardiovascular complaints Gastrointestinal Gastrointestinal: Reports no additional gastrointestinal complaints Physical Exam Vital Signs: Vital Signs: Last Vital Signs Temp 96.8 F 12/01/20 06:49 Pulse 98 12/01/20 06:49 Resp 20 12/01/20 06:49 BP 169/77 H 12/01/20 06:49 Pulse Ox 95 12/01/20 06:49 Body Mass Index 22.6 General: AO X 3, dyspneic Resp: dimished, exp wheezes CVS: S1,S2,RRR GI: soft, non tender, non distended Neuro: motor grossly intact Psych: appropriate affect Objective Data Current Medications Generic Name Dose Route Start Last Admin Trade Name Freq PRN Reason Stop Dose Admin Acetaminophen 650 mg 11/26/20 19:02 11/29/20 14:36 Acetaminophen 325 Mg Tablet PO 650 mg Q6H PRN Administration Pain, Mild (Pain Scale 1-3) Albuterol Sulfate 2.5 mg 11/26/20 15:54 11/30/20 11:15 Albuterol Sulfate (0.083%) 2.5 Mg/3 Ml Vial.Neb INHALE 2.5 mg Q2H PRN Administration Shortness of Breath/Wheezing Albuterol/Ipratropium 3 ml 11/28/20 12:00 12/01/20 06:14 Albuterol/Iprat 2.5/0.5mg 3 Ml Ampul.Neb INHALE 3 ml RQ6H ANDREW Administration Azithromycin 250 mg 11/27/20 14:00 11/30/20 13:59 Azithromycin 250 Mg Tablet PO 250 mg Q24H ANDREW Administration Buprenorphine/Naloxone 1 film 11/27/20 21:00 12/01/20 09:31 Buprenorphine/Naloxone 8/2 Mg Film SUBLINGUAL 1 film BID ANDREW Administration Enoxaparin Sodium 40 mg 11/26/20 20:00 11/30/20 20:21 Enoxaparin Sodium 40 Mg/0.4 Ml Syringe SUBCUT 40 mg Q24H ANDREW Administration Hydroxyzine HCl 25 mg 11/26/20 16:04 12/01/20 03:21 Hydroxyzine Hcl 25 Mg Tablet PO 25 mg Q6H PRN Administration anxiety/restlessness Ibuprofen 400 mg 11/26/20 19:02 11/29/20 14:38 Ibuprofen 400 Mg Tablet PO 400 mg Q6H PRN Administration Fever or Pain, mild Lorazepam 0.25 mg 11/26/20 16:04 12/01/20 01:49 Lorazepam 0.5 Mg Tablet PO 0.25 mg Q6H PRN Administration anxiety/restlessness Methylprednisolone Sodium Succinate 40 mg 11/27/20 09:00 12/01/20 08:01 Methylprednisolone Sod Succ 40 Mg/Ml Vial IVPUSH 40 mg BID ANDREW Administration Nicotine 14 mg 11/26/20 19:02 12/01/20 08:02 Nicotine 14 Mg Patch.Td24 TRANSDERMA 14 mg DAILY ANDREW Administration Ondansetron HCl 4 mg 11/26/20 19:02 Ondansetron Hcl 4 Mg/2 Ml Vial IVPUSH Q8H PRN Nausea and Vomiting Sodium Chloride 3 ml 11/26/20 19:02 12/01/20 08:06 0.9 % Sodium Chloride Flush 3 Ml Syringe IVFLUSH 3 ml QSHIFT ANDREW Administration Labs CBC & Chem 7: 11/27/20 05:33 11/28/20 04:06 Microbiology Microbiology Results: Microbiology 11/26/20 12:03 Blood - Venous Blood Culture - Preliminary No growth after 48 hours. 11/26/20 11:51 Blood - Venous Blood Culture - Preliminary No growth after 48 hours. Assessment and Plan (1) Acute respiratory failure with hypoxia: Status: Acute (2) Acute exacerbation of chronic obstructive airways disease: Status: Acute (3) Smoking addiction: Status: Acute (4) Anxiety attack: Status: Acute (5) Bilateral edema of lower extremity: Status: Acute Assessment and Plan: 70 years old lady with PMH of COPD, active smoker, opioid use disorder, breast CA among others who presented to the hospital for worsening shortness of breath, wheezing and increased swelling in her lower extremities for the last few days. Acute hypoxic respiratory failure Secondary to COPD exacerbation Continue oxygen supplement and wean of the oxygen as she cannot oxygen at home due to active smoking Continue IV steroids Continue duo nebs around the clock To use albuterol nebulizer as needed Continue azithromycin for anti-inflammatory effect on exam appears improved, but no improvement subjectively Anxiety attacks better controlled Likely associated with feeling of dyspnea Continue use Ativan and Atarax as needed Smoking addiction Advised about quitting smoking Continue use nicotine patches Bilateral lower extremity swelling Likely secondary to diastolic dysfunction from chronic COPD Improved with diuresis, now off diuresis DVT PPX Lovenox
[2020-12-01] MEDS: Azithromycin 250 MG TABLET PO (12:58)
[2020-12-01] MEDS: Enoxaparin Sodium 40 MG/0.4 ML SYRINGE SUBCUT (21:08)
[2020-12-02] VITALS (10 sets, daily range): BP systolic 148–195; BP diastolic 65–90; PULSE 95–122; RESP 19–22; TEMP 36.1–36.9; O2SAT 73–99
[2020-12-02] MEDS: methylPREDNISolone Sod Succ 40 MG/ML VIAL IVPUSH ×2 (08:06→20:42)
[2020-12-02] MEDS: Nicotine 14 MG PATCH.TD24 TRANSDERMA (08:06)
[2020-12-02] MEDS: 0.9 % Sodium Chloride Flush 3 ML SYRINGE IVFLUSH ×3 (08:06→20:42)
[2020-12-02] MEDS: Acetaminophen 325 MG TABLET 650 MG PO (08:10)
[2020-12-02] MEDS: Buprenorphine/Naloxone 8/2 mg FILM 1 FILM SUBLINGUAL ×2 (08:40→20:41)
--- NOTE | 2020-12-02 09:52 | HO.PM.IMPN ---
Subjective Subjective Date of Service: 12/02/20 Interval History: unchanged Cardiovascular Cardiovascular: Reports no additional cardiovascular complaints Gastrointestinal Gastrointestinal: Reports no additional gastrointestinal complaints Physical Exam Vital Signs: Vital Signs: Last Vital Signs Temp 97.5 F 12/02/20 07:19 Pulse 95 12/02/20 07:19 Resp 20 12/02/20 07:19 BP 157/72 H 12/02/20 07:19 Pulse Ox 73 L 12/02/20 09:06 Body Mass Index 22.6 General: AO X 3, no acute distress Resp: dimisnihed, wheezes CVS: S1,S2,RRR GI: soft, non tender, non distended Neuro: motor grossly intact Psych: appropriate affect Objective Data Current Medications Generic Name Dose Route Start Last Admin Trade Name Freq PRN Reason Stop Dose Admin Acetaminophen 650 mg 11/26/20 19:02 12/02/20 08:10 Acetaminophen 325 Mg Tablet PO 650 mg Q6H PRN Administration Pain, Mild (Pain Scale 1-3) Albuterol Sulfate 2.5 mg 11/26/20 15:54 11/30/20 11:15 Albuterol Sulfate (0.083%) 2.5 Mg/3 Ml Vial.Neb INHALE 2.5 mg Q2H PRN Administration Shortness of Breath/Wheezing Albuterol/Ipratropium 3 ml 11/28/20 12:00 12/02/20 05:44 Albuterol/Iprat 2.5/0.5mg 3 Ml Ampul.Neb INHALE Not Given RQ6H ANDREW Azithromycin 250 mg 11/27/20 14:00 12/01/20 12:58 Azithromycin 250 Mg Tablet PO 250 mg Q24H ANDREW Administration Buprenorphine/Naloxone 1 film 11/27/20 21:00 12/02/20 08:40 Buprenorphine/Naloxone 8/2 Mg Film SUBLINGUAL 1 film BID ANDREW Administration Enoxaparin Sodium 40 mg 11/26/20 20:00 12/01/20 21:08 Enoxaparin Sodium 40 Mg/0.4 Ml Syringe SUBCUT 40 mg Q24H ANDREW Administration Hydroxyzine HCl 25 mg 11/26/20 16:04 12/01/20 21:13 Hydroxyzine Hcl 25 Mg Tablet PO 25 mg Q6H PRN Administration anxiety/restlessness Ibuprofen 400 mg 11/26/20 19:02 06/08/21 14:38 Ibuprofen 400 Mg Tablet PO 400 mg Q6H PRN Administration Fever or Pain, mild Methylprednisolone Sodium Succinate 40 mg 11/27/20 09:00 12/02/20 08:06 Methylprednisolone Sod Succ 40 Mg/Ml Vial IVPUSH 40 mg BID ANDREW Administration Nicotine 14 mg 11/26/20 19:02 12/02/20 08:06 Nicotine 14 Mg Patch.Td24 TRANSDERMA 14 mg DAILY ANDREW Administration Ondansetron HCl 4 mg 11/26/20 19:02 Ondansetron Hcl 4 Mg/2 Ml Vial IVPUSH Q8H PRN Nausea and Vomiting Sodium Chloride 3 ml 11/26/20 19:02 12/02/20 08:06 0.9 % Sodium Chloride Flush 3 Ml Syringe IVFLUSH 3 ml QSHIFT ANDREW Administration Labs CBC & Chem 7: 11/27/20 05:33 11/28/20 04:06 Microbiology Microbiology Results: Microbiology 11/26/20 12:03 Blood - Venous Blood Culture - Final No growth after 5 days. 11/26/20 11:51 Blood - Venous Blood Culture - Final No growth after 5 days. Assessment and Plan (1) Acute respiratory failure with hypoxia: Status: Acute (2) Acute exacerbation of chronic obstructive airways disease: Status: Acute (3) Smoking addiction: Status: Acute (4) Anxiety attack: Status: Acute (5) Bilateral edema of lower extremity: Status: Acute Assessment and Plan: 70 years old lady with PMH of COPD, active smoker, opioid use disorder, breast CA among others who presented to the hospital for worsening shortness of breath, wheezing and increased swelling in her lower extremities for the last few days. Acute hypoxic respiratory failure Secondary to COPD exacerbation continues to be symptomatic and hypoxic on ambulation Continue IV steroids check repeat cxr Continue duo nebs around the clock To use albuterol nebulizer as needed Continue azithromycin for anti-inflammatory effect Anxiety attacks better controlled Likely associated with feeling of dyspnea Continue use Ativan and Atarax as needed Smoking addiction Advised about quitting smoking Continue use nicotine patches Bilateral lower extremity swelling Likely secondary to diastolic dysfunction from chronic COPD Improved with diuresis, now off diuresis DVT PPX Lovenox
[2020-12-02] MEDS: Albuterol/Iprat 2.5/0.5MG 3 ML AMPUL.NEB INHALE (11:09)
[2020-12-02] MEDS: hydrOXYzine HCL 25 MG TABLET PO ×2 (13:34→23:39)
[2020-12-02] MEDS: Azithromycin 250 MG TABLET PO (13:34)
[2020-12-02] MEDS: Enoxaparin Sodium 40 MG/0.4 ML SYRINGE SUBCUT (20:41)
[2020-12-03] VITALS (8 sets, daily range): BP systolic 144–175; BP diastolic 69–93; PULSE 85–121; RESP 18–20; TEMP 36.5–37.1; O2SAT 87–94
[2020-12-03] MEDS: Albuterol/Iprat 2.5/0.5MG 3 ML AMPUL.NEB INHALE ×2 (00:12→18:09)
[2020-12-03] MEDS: Ibuprofen 400 MG TABLET PO (04:50)
[2020-12-03] MEDS: hydrOXYzine HCL 25 MG TABLET PO (05:23)
[2020-12-03 07:00] LABS: Hematocrit 40.8 % (37-47); Hemoglobin 12.6 g/dl (12.0-16.0); Mean Corpuscular HGB Conc 30.9 g/dl (31.0-35.0); Mean Corpuscular Hemoglobin 29.7 pg (27.0-33.0); Mean Corpuscular Volume 96.2 fL (80-98); Mean Platelet Volume 9.1 fL (9.4-12.3); Platelet Count 340 X10*3/uL (160-400); Red Blood Count 4.24 X10*6/uL (4.20-5.50); White Blood Count 11.6 X10*3/uL (4.8-10.8)
[2020-12-03 07:23] LABS: Anion Gap 14 (12-20); Blood Urea Nitrogen 49 mg/dL (9-16); Calcium 8.7 mg/dL (8.4-10.2); Carbon Dioxide 30 mmol/L (22-29); Chloride 101 mmol/L (96-108); Creatinine Clr Calc Pharmacy 55.7; Estimated Glomerular Filt Rate > 60; Glucose Fasting 90 mg/dL (60-99); Potassium 5.2 mmol/L (3.3-5.1); Sodium 140 mmol/L (135-145)
[2020-12-03] MEDS: Buprenorphine/Naloxone 8/2 mg FILM 1 FILM SUBLINGUAL ×2 (07:44→18:19)
[2020-12-03] MEDS: methylPREDNISolone Sod Succ 40 MG/ML VIAL IVPUSH (07:48)
[2020-12-03] MEDS: 0.9 % Sodium Chloride Flush 3 ML SYRINGE IVFLUSH ×3 (07:49→20:12)
[2020-12-03] MEDS: Nicotine 14 MG PATCH.TD24 TRANSDERMA (07:49)
[2020-12-03] MEDS: amLODIPine Besylate 5 MG TABLET PO (09:37)
--- NOTE | 2020-12-03 10:33 | HO.PM.IMPN ---
Subjective Subjective Date of Service: 12/03/20 Interval History: somewhat improved Cardiovascular Cardiovascular: Reports no additional cardiovascular complaints Gastrointestinal Gastrointestinal: Reports no additional gastrointestinal complaints Physical Exam Vital Signs: Vital Signs: Last Vital Signs Temp 98.2 F 12/03/20 07:22 Pulse 85 12/03/20 09:37 Resp 18 12/03/20 07:22 BP 162/70 H 12/03/20 09:37 Pulse Ox 87 L 12/03/20 07:22 Body Mass Index 22.6 General: AO X 3, no acute distress Resp: dimisnihed, wheezes CVS: S1,S2,RRR GI: soft, non tender, non distended Neuro: motor grossly intact Psych: appropriate affect Objective Data Current Medications Generic Name Dose Route Start Last Admin Trade Name Freq PRN Reason Stop Dose Admin Acetaminophen 650 mg 11/26/20 19:02 12/02/20 08:10 Acetaminophen 325 Mg Tablet PO 650 mg Q6H PRN Administration Pain, Mild (Pain Scale 1-3) Albuterol Sulfate 2.5 mg 11/26/20 15:54 11/30/20 11:15 Albuterol Sulfate (0.083%) 2.5 Mg/3 Ml Vial.Neb INHALE 2.5 mg Q2H PRN Administration Shortness of Breath/Wheezing Albuterol/Ipratropium 3 ml 11/28/20 12:00 12/03/20 05:42 Albuterol/Iprat 2.5/0.5mg 3 Ml Ampul.Neb INHALE Not Given RQ6H [facility] Amlodipine Besylate 5 mg 12/03/20 09:00 12/03/20 09:37 Amlodipine Besylate 5 Mg Tablet PO 5 mg DAILY ANDREW Administration Protocol Azithromycin 250 mg 11/27/20 14:00 12/02/20 13:34 Azithromycin 250 Mg Tablet PO 250 mg Q24H ANDREW Administration Buprenorphine/Naloxone 1 film 12/03/20 18:00 Buprenorphine/Naloxone 8/2 Mg Film SUBLINGUAL BID@0600,1800 ANDREW Enoxaparin Sodium 40 mg 11/26/20 20:00 12/02/20 20:41 Enoxaparin Sodium 40 Mg/0.4 Ml Syringe SUBCUT 40 mg Q24H ANDREW Administration Hydroxyzine HCl 25 mg 11/26/20 16:04 12/03/20 05:23 Hydroxyzine Hcl 25 Mg Tablet PO 25 mg Q6H PRN Administration anxiety/restlessness Ibuprofen 400 mg 11/26/20 19:02 12/03/20 04:50 Ibuprofen 400 Mg Tablet PO 400 mg Q6H PRN Administration Fever or Pain, mild Nicotine 14 mg 11/26/20 19:02 12/03/20 07:49 Nicotine 14 Mg Patch.Td24 TRANSDERMA 14 mg DAILY ANDREW Administration Ondansetron HCl 4 mg 11/26/20 19:02 Ondansetron Hcl 4 Mg/2 Ml Vial IVPUSH Q8H PRN Nausea and Vomiting Prednisone 40 mg 12/04/20 09:00 Prednisone 20 Mg Tablet PO DAILY ANDREW Sodium Chloride 3 ml 11/26/20 19:02 12/03/20 07:49 0.9 % Sodium Chloride Flush 3 Ml Syringe IVFLUSH 3 ml QSHIFT ANDREW Administration Labs CBC & Chem 7: 12/03/20 05:48 12/03/20 05:48 Microbiology Microbiology Results: Microbiology 11/26/20 12:03 Blood - Venous Blood Culture - Final No growth after 5 days. 11/26/20 11:51 Blood - Venous Blood Culture - Final No growth after 5 days. Assessment and Plan (1) Acute respiratory failure with hypoxia: Status: Acute (2) Acute exacerbation of chronic obstructive airways disease: Status: Acute (3) Smoking addiction: Status: Acute (4) Anxiety attack: Status: Acute (5) Bilateral edema of lower extremity: Status: Acute Assessment and Plan: 70 years old lady with PMH of COPD, active smoker, opioid use disorder, breast CA among others who presented to the hospital for worsening shortness of breath, wheezing and increased swelling in her lower extremities for the last few days. Acute hypoxic respiratory failure Secondary to COPD exacerbation continues to be symptomatic and hypoxic on ambulation will change to prednisone Continue duo nebs around the clock To use albuterol nebulizer as needed Continue azithromycin for anti-inflammatory effect Anxiety attacks better controlled Likely associated with feeling of dyspnea Continue use Ativan and Atarax as needed Smoking addiction Advised about quitting smoking Continue use nicotine patches Bilateral lower extremity swelling Likely secondary to diastolic dysfunction from chronic COPD Improved with diuresis, now off diuresis DVT PPX Lovenox
[2020-12-03] MEDS: Acetaminophen 325 MG TABLET 650 MG PO (16:41)
[2020-12-03] MEDS: Azithromycin 250 MG TABLET PO (16:41)
--- NOTE | 2020-12-03 20:10 | PC.NURSE ---
P: patient describes 8/10 pain in varying locations and with vague description; too soon for more pain medication as well as history of substance abuse on suboxone P: patient reports she takes her suboxone at 6 am and 18:00 P: patient with transient short term memory loss I: patient with description of pain in her legs, especially posteriorly and in knees; reports pain in her arms; description very vague, says all of the above when asked for description of pain, history of chronic pain on suboxone. Patient rates pain as 8/10, says it never gets less than that; Suboxone dose was rescheduled for 6 am and 1800 by pharmacy after discussing with MD this morning. Transient short term memory loss appeared to occur in the afternoon around 1300 and was reported to nightime md at 20:15 E: patient is alert, orineted, but forgetful, some compulsive behaviors involving shredding and storing of toilet paper. findings reported to MD and to rn shift mgr nursing. no additional pain medications ordered. Continuing to medicate with ibuprofen and tylenol per emar; patient is off monitor with ok per MD
[2020-12-03] MEDS: Enoxaparin Sodium 40 MG/0.4 ML SYRINGE SUBCUT (20:11)
[2020-12-04] VITALS (8 sets, daily range): BP systolic 134–160; BP diastolic 63–79; PULSE 82–104; RESP 16–20; TEMP 36.2–37.1; O2SAT 92–97
[2020-12-04] MEDS: hydrOXYzine HCL 25 MG TABLET PO ×3 (01:48→20:09)
[2020-12-04] MEDS: Ibuprofen 400 MG TABLET PO (01:49)
[2020-12-04] MEDS: Buprenorphine/Naloxone 8/2 mg FILM 1 FILM SUBLINGUAL ×2 (05:34→17:02)
[2020-12-04] MEDS: Albuterol/Iprat 2.5/0.5MG 3 ML AMPUL.NEB INHALE (06:08)
[2020-12-04] MEDS: Nicotine 14 MG PATCH.TD24 TRANSDERMA (08:31)
[2020-12-04] MEDS: amLODIPine Besylate 5 MG TABLET PO (08:32)
[2020-12-04] MEDS: predniSONE 20 MG TABLET 40 MG PO (08:32)
[2020-12-04] MEDS: 0.9 % Sodium Chloride Flush 3 ML SYRINGE IVFLUSH ×3 (08:33→20:10)
--- NOTE | 2020-12-04 11:15 | HO.PM.IMPN ---
Subjective Subjective Date of Service: 12/04/20 Interval History: sob Cardiovascular Cardiovascular: Reports no additional cardiovascular complaints Genitourinary Genitourinary: Reports no additional female genitourinary complaints Physical Exam Vital Signs: Vital Signs: Last Vital Signs Temp 97.8 F 12/04/20 04:00 Pulse 82 12/04/20 06:08 Resp 18 12/04/20 04:00 BP 160/79 H 12/04/20 08:32 Pulse Ox 97 12/04/20 08:00 Body Mass Index 22.6 General: AO X 3, no acute distress Resp: tight and wheezy CVS: S1,S2,RRR GI: soft, non tender, non distended Neuro: motor grossly intact Psych: appropriate affect Objective Data Current Medications Generic Name Dose Route Start Last Admin Trade Name Freq PRN Reason Stop Dose Admin Acetaminophen 650 mg 11/26/20 19:02 12/03/20 16:41 Acetaminophen 325 Mg Tablet PO 325 mg Q6H PRN Administration Pain, Mild (Pain Scale 1-3) Albuterol/Ipratropium 3 ml 11/28/20 12:00 12/04/20 06:08 Albuterol/Iprat 2.5/0.5mg 3 Ml Ampul.Neb INHALE 3 ml RQ6H ANDREW Administration Amlodipine Besylate 5 mg 12/03/20 09:00 12/04/20 08:32 Amlodipine Besylate 5 Mg Tablet PO 5 mg DAILY ANDREW Administration Protocol Azithromycin 250 mg 11/27/20 14:00 12/03/20 16:41 Azithromycin 250 Mg Tablet PO 250 mg Q24H ANDREW Administration Buprenorphine/Naloxone 1 film 12/03/20 18:00 12/04/20 05:34 Buprenorphine/Naloxone 8/2 Mg Film SUBLINGUAL 1 film BID@0600,1800 ANDREW Administration Enoxaparin Sodium 40 mg 11/26/20 20:00 12/03/20 20:11 Enoxaparin Sodium 40 Mg/0.4 Ml Syringe SUBCUT 40 mg Q24H ANDREW Administration Hydroxyzine HCl 25 mg 11/26/20 16:04 12/04/20 01:48 Hydroxyzine Hcl 25 Mg Tablet PO 25 mg Q6H PRN Administration anxiety/restlessness Ibuprofen 400 mg 11/26/20 19:02 12/04/20 01:49 Ibuprofen 400 Mg Tablet PO 400 mg Q6H PRN Administration Fever or Pain, mild Nicotine 14 mg 11/26/20 19:02 12/04/20 08:31 Nicotine 14 Mg Patch.Td24 TRANSDERMA 14 mg DAILY ANDREW Administration Ondansetron HCl 4 mg 11/26/20 19:02 Ondansetron Hcl 4 Mg/2 Ml Vial IVPUSH Q8H PRN Nausea and Vomiting Prednisone 40 mg 12/04/20 09:00 12/04/20 08:32 Prednisone 20 Mg Tablet PO 40 mg DAILY ANDREW Administration Sodium Chloride 3 ml 11/26/20 19:02 12/04/20 08:33 0.9 % Sodium Chloride Flush 3 Ml Syringe IVFLUSH 3 ml QSHIFT ANDREW Administration Labs CBC & Chem 7: 12/03/20 05:48 12/03/20 05:48 Microbiology Microbiology Results: Microbiology 11/26/20 12:03 Blood - Venous Blood Culture - Final No growth after 5 days. 11/26/20 11:51 Blood - Venous Blood Culture - Final No growth after 5 days. Assessment and Plan (1) Acute respiratory failure with hypoxia: Status: Acute (2) Acute exacerbation of chronic obstructive airways disease: Status: Acute (3) Smoking addiction: Status: Acute (4) Anxiety attack: Status: Acute (5) Bilateral edema of lower extremity: Status: Acute Assessment and Plan: 70 years old lady with PMH of COPD, active smoker, opioid use disorder, breast CA among others who presented to the hospital for worsening shortness of breath, wheezing and increased swelling in her lower extremities for the last few days. Acute hypoxic respiratory failure Secondary to COPD exacerbation continues to be symptomatic and hypoxic on ambulation continue prednisone Continue duo nebs around the clock To use albuterol nebulizer as needed Continue azithromycin for anti-inflammatory effect does not appear to be a stable state or ready for home o2 eval Anxiety attacks better controlled Likely associated with feeling of dyspnea Continue use Ativan and Atarax as needed Smoking addiction Advised about quitting smoking Continue use nicotine patches Bilateral lower extremity swelling Likely secondary to diastolic dysfunction from chronic COPD Improved with diuresis, now off diuresis DVT PPX Lovenox
[2020-12-04] MEDS: Azithromycin 250 MG TABLET PO (13:00)
[2020-12-04] MEDS: Calcium Carbonate 750 MG TAB.CHEW PO (13:05)
[2020-12-04] MEDS: LORazepam 0.5 MG TABLET 0.25 MG PO (22:38)
[2020-12-05] VITALS (8 sets, daily range): BP systolic 135–161; BP diastolic 64–74; PULSE 85–108; RESP 15–22; TEMP 36.1–37.1; O2SAT 90–97
[2020-12-05] MEDS: hydrOXYzine HCL 25 MG TABLET PO (02:16)
[2020-12-05] MEDS: Buprenorphine/Naloxone 8/2 mg FILM 1 FILM SUBLINGUAL ×2 (06:25→17:37)
[2020-12-05 07:12] LABS: Hematocrit 42.6 % (37-47); Mean Corpuscular HGB Conc 30.5 g/dl (31.0-35.0); Mean Corpuscular Hemoglobin 29.9 pg (27.0-33.0); Mean Corpuscular Volume 97.9 fL (80-98); Mean Platelet Volume 8.9 fL (9.4-12.3); Platelet Count 364 X10*3/uL (160-400); Red Blood Count 4.35 X10*6/uL (4.20-5.50); Red Cell Distribution Width 15.4 % (11.0-16.0); White Blood Count 12.8 X10*3/uL (4.8-10.8)
[2020-12-05] MEDS: Nicotine 14 MG PATCH.TD24 TRANSDERMA (07:26)
[2020-12-05] MEDS: 0.9 % Sodium Chloride Flush 3 ML SYRINGE IVFLUSH ×3 (07:26→20:58)
[2020-12-05] MEDS: predniSONE 20 MG TABLET 40 MG PO (07:26)
[2020-12-05] MEDS: amLODIPine Besylate 5 MG TABLET PO (07:27)
[2020-12-05 07:36] LABS: Anion Gap 12 (12-20); Blood Urea Nitrogen 44 mg/dL (9-16); Calcium 8.8 mg/dL (8.4-10.2); Carbon Dioxide 34 mmol/L (22-29); Chloride 102 mmol/L (96-108); Creatinine Clr Calc Pharmacy 56.4; Estimated Glomerular Filt Rate > 60; Glucose Fasting 71 mg/dL (60-99); Potassium 4.5 mmol/L (3.3-5.1); Sodium 143 mmol/L (135-145)
[2020-12-05] MEDS: Albuterol/Iprat 2.5/0.5MG 3 ML AMPUL.NEB INHALE (11:29)
--- NOTE | 2020-12-05 12:21 | HO.PM.IMPN ---
Subjective Subjective Date of Service: 12/05/20 Interval History: stable Cardiovascular Cardiovascular: Reports no additional cardiovascular complaints Genitourinary Genitourinary: Reports no additional female genitourinary complaints Physical Exam Vital Signs: Vital Signs: Last Vital Signs Temp 97.9 F 12/05/20 11:02 Pulse 85 12/05/20 11:31 Resp 22 H 12/05/20 11:02 BP 140/67 H 12/05/20 11:02 Pulse Ox 92 12/05/20 11:02 Body Mass Index 22.6 General: AO X 3, no acute distress Resp: wheezy CVS: S1,S2,RRR GI: soft, non tender, non distended Neuro: motor grossly intact Psych: appropriate affect Objective Data Current Medications Generic Name Dose Route Start Last Admin Trade Name Freq PRN Reason Stop Dose Admin Acetaminophen 650 mg 11/26/20 19:02 12/03/20 16:41 Acetaminophen 325 Mg Tablet PO 325 mg Q6H PRN Administration Pain, Mild (Pain Scale 1-3) Amlodipine Besylate 5 mg 12/03/20 09:00 12/05/20 07:27 Amlodipine Besylate 5 Mg Tablet PO 5 mg DAILY ANDREW Administration Protocol Buprenorphine/Naloxone 1 film 12/03/20 18:00 12/05/20 06:25 Buprenorphine/Naloxone 8/2 Mg Film SUBLINGUAL 1 film BID@0600,1800 ANDREW Administration Enoxaparin Sodium 40 mg 11/26/20 20:00 12/04/20 20:12 Enoxaparin Sodium 40 Mg/0.4 Ml Syringe SUBCUT Not Given Q24H ANDREW Hydroxyzine HCl 25 mg 11/26/20 16:04 12/05/20 02:16 Hydroxyzine Hcl 25 Mg Tablet PO 25 mg Q6H PRN Administration anxiety/restlessness Ibuprofen 400 mg 11/26/20 19:02 12/04/20 01:49 Ibuprofen 400 Mg Tablet PO 400 mg Q6H PRN Administration Fever or Pain, mild Nicotine 14 mg 11/26/20 19:02 12/05/20 07:26 Nicotine 14 Mg Patch.Td24 TRANSDERMA 14 mg DAILY ANDREW Administration Ondansetron HCl 4 mg 11/26/20 19:02 Ondansetron Hcl 4 Mg/2 Ml Vial IVPUSH Q8H PRN Nausea and Vomiting Prednisone 40 mg 12/04/20 09:00 12/05/20 07:26 Prednisone 20 Mg Tablet PO 40 mg DAILY ANDREW Administration Sodium Chloride 3 ml 11/26/20 19:02 12/05/20 07:26 0.9 % Sodium Chloride Flush 3 Ml Syringe IVFLUSH 3 ml QSHIFT ANDREW Administration Labs CBC & Chem 7: 12/05/20 05:50 12/05/20 05:50 Labs: Laboratory Results - last 24 hr 12/05/20 12/05/20 05:50 05:50 WBC 12.8 H RBC 4.35 Hgb 13.0 Hct 42.6 MCV 97.9 MCH 29.9 MCHC 30.5 L RDW 15.4 Plt Count 364 MPV 8.9 L Absolute Nucleated RBC 0.000 Nucleated RBC % (auto) 0.0 Sodium 143 Potassium 4.5 Chloride 102 Carbon Dioxide 34 H Anion Gap 12 BUN 44 H Creatinine 0.79 Estim Creat Clear Calc 56.4 Estimated GFR > 60 Fasting Glucose 71 Calcium 8.8 Assessment and Plan (1) Acute respiratory failure with hypoxia: Status: Acute (2) Acute exacerbation of chronic obstructive airways disease: Status: Acute (3) Smoking addiction: Status: Acute (4) Anxiety attack: Status: Acute (5) Bilateral edema of lower extremity: Status: Acute Assessment and Plan: 70 years old lady with PMH of COPD, active smoker, opioid use disorder, breast CA among others who presented to the hospital for worsening shortness of breath, wheezing and increased swelling in her lower extremities for the last few days. Acute hypoxic respiratory failure Secondary to COPD exacerbation continue prednisone Continue duo nebs To use albuterol nebulizer as needed feeling better today, do not expect significant further short term improvement, will obtain home o2 eval patient expressed concerns over smoking, patient educated about the importance of avoiding open flames and lit cigarettes around oxygen Anxiety attacks better controlled Likely associated with feeling of dyspnea Continue use Ativan and Atarax as needed Smoking addiction Advised about quitting smoking Continue use nicotine patches Bilateral lower extremity swelling Likely secondary to diastolic dysfunction from chronic COPD Improved with diuresis, now off diuresis DVT PPX Lovenox
[2020-12-05] MEDS: LORazepam 2 MG/ML VIAL 1 MG IVPUSH (14:16)
[2020-12-05 14:53] LABS: ABG HCO3 32 mmol/L (22-26); ABG pCO2 55 mmHg (32-45); ABG pCO2 TC 55 mmHg (32-45); ABG pH 7.37 (7.35-7.45); ABG pH TC 7.37 (7.35-7.45); ABG pO2 73 mmHg (83-108); ABG pO2 TC 73 (83-108)
[2020-12-05 14:53] LABS: ABG Refer to POC result
[2020-12-06] MEDS: hydrOXYzine HCL 25 MG TABLET PO ×3 (00:09→23:57)
[2020-12-06] MEDS: LORazepam 0.5 MG TABLET 0.25 MG PO (00:12)
[2020-12-06 03:12] VITALS: BP 148/67; PULSE 103; RESP 20; TEMP 36.8; O2SAT 92
[2020-12-06] MEDS: Buprenorphine/Naloxone 8/2 mg FILM 1 FILM SUBLINGUAL ×2 (05:55→17:51)
[2020-12-06 07:10] VITALS: BP 124/60; PULSE 94; RESP 22; TEMP 36.1; O2SAT 93
[2020-12-06] MEDS: 0.9 % Sodium Chloride Flush 3 ML SYRINGE IVFLUSH ×3 (08:44→20:51)
[2020-12-06] MEDS: Nicotine 14 MG PATCH.TD24 TRANSDERMA (08:44)
[2020-12-06] MEDS: amLODIPine Besylate 5 MG TABLET PO (08:44)
[2020-12-06] MEDS: predniSONE 20 MG TABLET 40 MG PO (08:44)
--- NOTE | 2020-12-06 10:17 | P.CONPL_ITS ---
History of Present Illness History of Present Illness Consult date: 12/06/20 Chief complaint: Hypoxia,COPD exacerbation, Fluid overload Narrative: 70 years old lady with PMH of COPD, active smoker, opioid use disorder, breast CA among others who presented to the hospital for worsening shortness of breath, wheezing and increased swelling in her lower extremities for the last few days. The patient reports she is actively smoking 1 pack a day cigarettes for the last 50 years of her life. Reporting that she failed multiple tries to quit smoking. Over the last few days she noticed worsening shortness of breath and dyspnea on exertion with associated wheezes. The patient was admitted to the hospital with a COPD exacerbation in addition to acute on chronic hypoxic respiratory failure. The patient has been using oxygen with good effect. She continues to have a hard time with her breathing. Significant wheezing. Her repeat chest x-ray did demonstrate some slight increased opacity in the upper lung zone. She did have a CT scan from 2019 which demonstrated moderate degree amount of emphysema in addition to a nodular density in the left. At this point will trying to improve her respiratory capacity. She will definitely need outpatient pulmonary follow-up in order to follow-up with the pulmonary nodules and also her underlying COPD and respiratory failure. Also to known her pCO2 was also indeed elevated. Patient continues to smoke cigarettes she is currently on nicotine patch hopefully she can continue using the for smoking cessation. Review of Systems Constitutional: Constitutional: Denies night sweats ENT: Denies change in voice, Denies lip swelling, Denies mouth pain, Reports nasal congestion, Reports nasal discharge and Denies tongue swelling Cardiovascular: Cardiovascular: Denies chest pain Respiratory: Respiratory: Reports chest congestion, Reports cough, Reports excessive phlegm production and Reports wheezing Gastrointestinal: Gastrointestinal: Denies abdominal pain Musculoskeletal: Musculoskeletal: Denies no additional musculoskeletal complaints Neurologic: Denies Neuro-related abnormal movements Psychiatric: Psychiatric: Denies no additional psychiatric complaints Hematologic/Lymphatic: Hematologic/Lymphatic: Denies easy bleeding and Denies lymphadenopathy Allergic/Immunologic: Allergic/Immunologic: Denies lip swelling, Denies tongue swelling and Reports wheezing PMFSH Past Medical History Medical History (Updated 12/06/20 @ 10:22 by Magno Post MD) Breast cancer Chronic hypercapnic respiratory failure Chronic pain COPD (chronic obstructive pulmonary disease) COPD (chronic obstructive pulmonary disease) Depression Fibromyalgia Hypoxia Substance abuse Family History Family History Father No problems noted. Mother No problems noted. Surgical History Surgical History H/O mastectomy Social History Social History (Updated 12/03/20 @ 08:22 by Chad Santos RN) Household Members: Children Household Members Other:: Son Housing: House Do you presently have visiting nurse or other home services: No Alcohol intake: never Patient Tobacco Use Status: Current everyday Tobacco user Cigarette Packs Per Day: 1.5 Cigarettes Per Day: 30.0 Years Smoked: 50 Smoked in Last 30 Days: Yes Patient Interested in Nicotine Replacement: Yes Second Hand Smoke Exposure: Yes Substance Use Type: Heroin and Other Advance Directives Date on File: 04/05/20 service: No Current occupational status: disabled Meds Allergies Allergy/AdvReac Type Severity Reaction Status Date / Time No Known Allergies Allergy Verified 11/09/20 13:52 [No Known Allergies*] Active Medications: Current Medications Generic Name Dose Route Start Last Admin Trade Name Freq PRN Reason Stop Dose Admin Acetaminophen 650 mg 11/26/20 19:02 12/03/20 16:41 Acetaminophen 325 Mg Tablet PO 325 mg Q6H PRN Administration Pain, Mild (Pain Scale 1-3) Amlodipine Besylate 5 mg 12/03/20 09:00 12/06/20 08:44 Amlodipine Besylate 5 Mg Tablet PO 5 mg DAILY ANDREW Administration Protocol Buprenorphine/Naloxone 1 film 12/03/20 18:00 12/06/20 05:55 Buprenorphine/Naloxone 8/2 Mg Film SUBLINGUAL 1 film BID@0600,1800 ANDREW Administration Enoxaparin Sodium 40 mg 11/26/20 20:00 12/05/20 20:54 Enoxaparin Sodium 40 Mg/0.4 Ml Syringe SUBCUT Not Given Q24H ANDREW Hydroxyzine HCl 25 mg 11/26/20 16:04 12/06/20 00:09 Hydroxyzine Hcl 25 Mg Tablet PO 25 mg Q6H PRN Administration anxiety/restlessness Ibuprofen 400 mg 11/26/20 19:02 12/04/20 01:49 Ibuprofen 400 Mg Tablet PO 400 mg Q6H PRN Administration Fever or Pain, mild Lorazepam 0.25 mg 12/05/20 13:59 12/06/20 00:12 Lorazepam 0.5 Mg Tablet PO 0.25 mg Q6H PRN Administration anxiety Nicotine 14 mg 11/26/20 19:02 12/06/20 08:44 Nicotine 14 Mg Patch.Td24 TRANSDERMA 14 mg DAILY ANDREW Administration Ondansetron HCl 4 mg 11/26/20 19:02 Ondansetron Hcl 4 Mg/2 Ml Vial IVPUSH Q8H PRN Nausea and Vomiting Prednisone 40 mg 12/04/20 09:00 12/06/20 08:44 Prednisone 20 Mg Tablet PO 40 mg DAILY ANDREW Administration Sodium Chloride 3 ml 11/26/20 19:02 12/06/20 08:44 0.9 % Sodium Chloride Flush 3 Ml Syringe IVFLUSH 3 ml QSHIFT ANDREW Administration Home Medications Medication Instructions Recorded Confirmed Last Taken Type albuterol sulfate 90 mcg/actuation 1 inh INHALATION Q4H g 09/09/20 11/26/20 Unknown History aerosol inhaler Advil PM 400 mg BEDTIME 11/26/20 11/26/20 Unknown History Physical Exam Vital Signs: Vital Signs: Last Vital Signs Temp 97 F 12/06/20 07:10 Pulse 94 12/06/20 07:10 Resp 22 H 12/06/20 07:10 BP 124/60 12/06/20 07:10 Pulse Ox 93 12/06/20 07:10 Body Mass Index 22.6 Const: General: alert Neck: Neck: Yes normal visual inspection, Yes full ROM and Yes no lymphadenopathy Chest: Chest palpation & inspection: normal inspection of the chest Resp: Auscultation: rhonchi, wheezes and diminished lung sounds Cardio: Rate: regular rate Rhythm: regular rhythm Heart sounds: S1 normal heart sound present and S2 normal heart sound present GI: Palpation (GI): Soft to palpation and nontender Auscultation: normal b owel sounds Skin: General skin exam: rashes and/or lesions noted Results Laboratory Findings CBC and BMP: 12/05/20 05:50 12/05/20 05:50 ABG, PT/INR, D-dimer: PT/INR, D-dimer PT 11.3 SEC (10.8-13.0) 11/26/20 11:51 INR 1.0 (0.9-1.1) 11/26/20 11:51 D-Dimer 236 NG/ML 11/26/20 11:51 Abnormal lab findings: Abnormal Labs 11/26/20 11/26/20 11/26/20 11:51 12:02 12:07 WBC RBC Hct 47.5 H MCHC MPV 8.5 L Lymph % (Auto) [place] % (Auto) ABG pCO2 at Pt Temp ABG pCO2 (Temp Corrct ABG pO2 at Pt Temp ABG pO2 (Temp Correct ABG HCO3 VBG HCO3 27 H 27 H Potassium Carbon Dioxide BUN Random Glucose 11/27/20 11/27/20 11/28/20 05:33 05:33 04:06 WBC RBC 3.97 L Hct MCHC MPV 8.6 L Lymph % (Auto) 15.0 L [place] % (Auto) 11.6 H ABG pCO2 at Pt Temp ABG pCO2 (Temp Corrct ABG pO2 at Pt Temp ABG pO2 (Temp Correct ABG HCO3 VBG HCO3 Potassium Carbon Dioxide 32 H 32 H BUN 21 H 30 H Random Glucose 119 H 12/03/20 12/03/20 12/05/20 05:48 05:48 05:50 WBC 11.6 H 12.8 H RBC Hct MCHC 30.9 L 30.5 L MPV 9.1 L 8.9 L Lymph % (Auto) [place] % (Auto) ABG pCO2 at Pt Temp ABG pCO2 (Temp Corrct ABG pO2 at Pt Temp ABG pO2 (Temp Correct ABG HCO3 VBG HCO3 Potassium 5.2 H Carbon Dioxide 30 H BUN 49 H D Random Glucose 12/05/20 12/05/20 05:50 14:45 WBC RBC Hct MCHC MPV Lymph % (Auto) [place] % (Auto) ABG pCO2 at Pt Temp 55 H ABG pCO2 (Temp Corrct 55 H ABG pO2 at Pt Temp 73 L ABG pO2 (Temp Correct 73 L ABG HCO3 32 H VBG HCO3 Potassium Carbon Dioxide 34 H BUN 44 H Random Glucose Microbiology: Microbiology 11/26/20 12:03 Blood - Venous Blood Culture - Final No growth after 5 days. 11/26/20 11:51 Blood - Venous Blood Culture - Final No growth after 5 days. Assessment and Plan (1) Acute exacerbation of chronic obstructive airways disease: Status: Acute (2) Acute respiratory failure with hypoxia: Status: Acute (3) Chronic hypercapnic respiratory failure: Status: Acute Give Solu-Medrol IV x1 now Add Azithromycin 500mg Add Breo Add Spiriva Add MUcinex DM Continue nicotene patch Oxygen supplementation to keep pox>90% Will f/U with pulmonary Procedures Date of Service Date of Service: 12/06/20
[2020-12-06] MEDS: methylPREDNISolone Sod Succ 125 MG/2 ML VIAL IVPUSH (10:53)
[2020-12-06 10:56] VITALS: BP 140/66; PULSE 100; RESP 20; TEMP 35.7; O2SAT 95
[2020-12-06] MEDS: Azithromycin 500 MG TABLET PO (11:08)
--- NOTE | 2020-12-06 12:15 | P.PNIM_ITS ---
Subjective Subjective Date of Service: 12/06/20 Interval History: still very sob, anxious Cardiovascular Cardiovascular: Reports no additional cardiovascular complaints Gastrointestinal Gastrointestinal: Reports no additional gastrointestinal complaints Physical Exam Vital Signs: Vital Signs: Last Vital Signs Temp 96.3 F L 12/06/20 10:56 Pulse 100 12/06/20 10:56 Resp 20 12/06/20 10:56 BP 140/66 H 12/06/20 10:56 Pulse Ox 95 12/06/20 10:56 Body Mass Index 22.6 Const General: alert Neck Neck: Yes normal visual inspection, Yes full ROM and Yes no lymphadenopathy Chest Chest palpation & inspection: normal inspection of the chest Resp Auscultation: rhonchi, wheezes and diminished lung sounds Cardio Rate: regular rate Rhythm: regular rhythm Heart sounds: S1 normal heart sound present and S2 normal heart sound present GI Palpation (GI): Soft to palpation and nontender Auscultation: normal bowel sounds Skin General skin exam: rashes and/or lesions noted Objective Data Current Medications Generic Name Dose Route Start Last Admin Trade Name José Manuelq PRN Reason Stop Dose Admin Acetaminophen 650 mg 11/26/20 19:02 12/03/20 16:41 Acetaminophen 325 Mg Tablet PO 325 mg Q6H PRN Administration Pain, Mild (Pain Scale 1-3) Amlodipine Besylate 5 mg 12/03/20 09:00 12/06/20 08:44 Amlodipine Besylate 5 Mg Tablet PO 5 mg DAILY ANDREW Administration Protocol Azithromycin 500 mg 12/06/20 11:00 12/06/20 11:08 Azithromycin 500 Mg Tablet PO 500 mg Q24H ANDREW Administration Buprenorphine/Naloxone 1 film 12/03/20 18:00 12/06/20 05:55 Buprenorphine/Naloxone 8/2 Mg Film SUBLINGUAL 1 film BID@0600,1800 ANDREW Administration Enoxaparin Sodium 40 mg 11/26/20 20:00 12/05/20 20:54 Enoxaparin Sodium 40 Mg/0.4 Ml Syringe SUBCUT Not Given Q24H [facility] Fluticasone/Vilanterol 1 puff 12/07/20 08:00 Fluticasone/Vilanterol 200/25 Blst.W.Dev INHALE RDAILY [facility] Guaifenesin/Dextromethorphan 2 tab 12/06/20 21:00 Guaifenesin Dm 600/30 1 Tab Tab.Er.12h PO BID [facility] Hydroxyzine HCl 25 mg 11/26/20 16:04 12/06/20 00:09 Hydroxyzine Hcl 25 Mg Tablet PO 25 mg Q6H PRN Administration anxiety/restlessness Ibuprofen 400 mg 11/26/20 19:02 12/04/20 01:49 Ibuprofen 400 Mg Tablet PO 400 mg Q6H PRN Administration Fever or Pain, mild Lorazepam 0.25 mg 12/05/20 13:59 12/06/20 00:12 Lorazepam 0.5 Mg Tablet PO 0.25 mg Q6H PRN Administration anxiety Nicotine 14 mg 11/26/20 19:02 12/06/20 08:44 Nicotine 14 Mg Patch.Td24 TRANSDERMA 14 mg DAILY ANDREW Administration Ondansetron HCl 4 mg 11/26/20 19:02 Ondansetron Hcl 4 Mg/2 Ml Vial IVPUSH Q8H PRN Nausea and Vomiting Prednisone 40 mg 12/04/20 09:00 12/06/20 08:44 Prednisone 20 Mg Tablet PO 40 mg DAILY ANDREW Administration Sodium Chloride 3 ml 11/26/20 19:02 12/06/20 08:44 0.9 % Sodium Chloride Flush 3 Ml Syringe IVFLUSH 3 ml QSHIFT [facility] Administration Tiotropium Central 1 puff 12/07/20 08:00 Tiotropium Central 18 Mcg Cap.W.Dev INHALE RDAILY [facility] Labs CBC & Chem 7: 12/05/20 05:50 12/05/20 05:50 Labs: Laboratory Results - last 24 hr 12/05/20 14:45 O2 Saturation 94.0 ABG pH at Pt Temp 7.37 ABG pH (Temp Correct) 7.37 ABG pCO2 at Pt Temp 55 H ABG pCO2 (Temp Corrct 55 H ABG pO2 at Pt Temp 73 L ABG pO2 (Temp Correct 73 L ABG HCO3 32 H ABG Base Excess (Actual) 6.0 Assessment and Plan (1) Acute respiratory failure with hypoxia: Status: Acute (2) Acute exacerbation of chronic obstructive airways disease: Status: Acute (3) Smoking addiction: Status: Acute (4) Anxiety attack: Status: Acute (5) Bilateral edema of lower extremity: Status: Acute Assessment and Plan: 70 years old lady with PMH of COPD, active smoker, opioid use disorder, breast CA among others who presented to the hospital for worsening shortness of breath, wheezing and increased swelling in her lower extremities for the last few days. Acute hypoxic respiratory failure Secondary to COPD exacerbation has had prolonged hospital stay and has had minimal improvement pulm appreciated given another 125mg solumedrol, restarted azitrhomycin continue prednisone Continue duo nebs yesterday attempted home o2 eval, then became agitated and delerious, suspect benzo withdrawl, responded to restarting ativan patient expressed concerns over smoking, patient educated about the importance of avoiding open flames and lit cigarettes around oxygen Anxiety attacks better controlled Likely associated with feeling of dyspnea Continue use Ativan and Atarax as needed Smoking addiction Advised about quitting smoking Continue use nicotine patches Bilateral lower extremity swelling Likely secondary to diastolic dysfunction from chronic COPD Improved with diuresis, now off diuresis DVT PPX Lovenox
--- NOTE | 2020-12-06 13:02 | MHC.CM.PN ---
revididted with pt updated imm again discussed str as recommnmeded bt pt today ..p;t does not want str she plans onreturnin g to [facility] ..she says then she will look for her own place
[2020-12-06 15:21] VITALS: BP 133/66; PULSE 104; RESP 18; TEMP 36.7; O2SAT 95
[2020-12-06 20:00] VITALS: BP 140/66; PULSE 110; RESP 18; TEMP 37; O2SAT 96
[2020-12-06] MEDS: Enoxaparin Sodium 40 MG/0.4 ML SYRINGE SUBCUT (20:49)
[2020-12-06] MEDS: guaiFENesin DM 600/30 1 TAB TAB.ER.12H 2 TAB PO (20:49)
[2020-12-06 23:43] VITALS: BP 157/74; PULSE 96; RESP 20; TEMP 36.6; O2SAT 96
[2020-12-07] VITALS (8 sets, daily range): BP systolic 135–180; BP diastolic 63–94; PULSE 93–117; RESP 18–20; TEMP 36.6–37; O2SAT 86–98
[2020-12-07] MEDS: Ibuprofen 400 MG TABLET PO
[2020-12-07] MEDS: LORazepam 0.5 MG TABLET 0.25 MG PO ×2 (02:58→22:56)
[2020-12-07] MEDS: Acetaminophen 325 MG TABLET 650 MG PO (02:58)
--- NOTE | 2020-12-07 03:27 | MHC.PIE ---
p - call received from camera room that pt retrieved something from belongings in glass case/vs purse, on ceboxone, hx of drug addiction i - supv notified & instructed to ask pt if she is doing drugs, upon entry to room, pt in bed, took o2 off & bent over toward glass case sniffing. pt questioned if she was doing drugs, which she denied. asked pt if she had drugs in her glass case, she angrily denied but did shake out glass case upside down. states if she had drugs in her purse, drugs would stay in purse. educated on concern for pt safety since pt just received ativan 0.25mg po. pt states she will report incident to md. Dr. boyd notified by this rn. suspicious activity noted on camera of fidgeting with multiple belongings and sheets & rolling up napkins e - continue to monitor.
--- NOTE | 2020-12-07 06:43 | MHC.PIE ---
p - pt with order for ceboxone for pt. this rn updated dr. boyd and asked md if ceboxone should be given, instructed to ask pt to be honest if she did take drugs, then ceboxone would make her very ill. i - this RN went in room and with respect asked pt the before question. she became angry would not answer and asked me to leave the room without answering if she wanted the ceboxone or if she took drugs. this rn immediately left room and Karissa RN went in room. still wouldn't respond on whether she wants ceboxone. belligerent. next shift to evaluate, suppv aware
[2020-12-07] MEDS: 0.9 % Sodium Chloride Flush 3 ML SYRINGE IVFLUSH ×3 (08:52→19:42)
[2020-12-07] MEDS: predniSONE 20 MG TABLET 40 MG PO (08:53)
[2020-12-07] MEDS: guaiFENesin DM 600/30 1 TAB TAB.ER.12H 2 TAB PO ×2 (08:53→19:41)
[2020-12-07] MEDS: amLODIPine Besylate 5 MG TABLET PO (08:53)
[2020-12-07] MEDS: Nicotine 14 MG PATCH.TD24 TRANSDERMA (08:54)
[2020-12-07] MEDS: Buprenorphine/Naloxone 8/2 mg FILM 1 FILM SUBLINGUAL ×2 (09:00→19:41)
--- NOTE | 2020-12-07 09:30 | PM.PNPUL ---
Subjective Subjective Date of Service: 12/07/20 Interval history: The patient was seen and examined. Overall she is looking better. She still requiring oxygen. She is reluctant to use the oxygen at home due to the the other people that live in her are not allowing it. She understands the oxygen is crucial for her medical therapy and without the oxygen she will carry a poor prognosis and frequent hospitalizations. In the meantime we did maximize her respiratory therapy. She will need outpatient follow-up for the respiratory failure COPD and also to follow up the pulmonary nodules. Objective Data Labs CBC & Chem 7: 12/05/20 05:50 12/05/20 05:50 Microbiology Microbiology Results: Microbiology 11/26/20 12:03 Blood - Venous Blood Culture - Final No growth after 5 days. 11/26/20 11:51 Blood - Venous Blood Culture - Final No growth after 5 days. Review of Systems Constitutional: Denies night sweats Denies change in voice, Denies lip swelling, Denies mouth pain, Reports nasal congestion, Reports nasal discharge and Denies tongue swelling Cardiovascular: Denies chest pain Respiratory: Reports chest congestion, Reports cough, Denies excessive phlegm production and Reports wheezing Gastrointestinal: Denies abdominal pain Musculoskeletal: Denies no additional musculoskeletal complaints Denies Neuro-related abnormal movements Psychiatric: Denies no additional psychiatric complaints Hematologic/Lymphatic: Denies easy bleeding and Denies lymphadenopathy Allergic/Immunologic: Denies lip swelling, Denies tongue swelling and Reports wheezing Physical Exam Vital Signs: Vital Signs: Last Vital Signs Temp 98 F 12/07/20 07:02 Pulse 101 H 12/07/20 07:02 Resp 20 12/07/20 07:02 BP 180/94 H 12/07/20 07:02 Pulse Ox 93 12/07/20 07:02 Body Mass Index 22.6 Const: General: alert Eyes: Pupils: Equal, round and reactive pupils present Neck: Neck: Yes normal visual inspection, Yes full ROM and Yes no lymphadenopathy Chest: Chest palpation & inspection: normal inspection of the chest Resp: Auscultation: wheezes and diminished lung sounds Cardio: Rate: regular rate Rhythm: regular rhythm Heart sounds: S1 normal heart sound present and S2 normal heart sound present GI: Palpation (GI): Soft to palpation and nontender Auscultation: normal bowel sounds Skin: General skin exam: rashes and/or lesions noted Neuro: Cranial nerves: Yes Equal, round and reactive pupils present Procedures Date of Service Date of Service: 12/07/20 Assessment and Plan Assessment and plan (1) Chronic hypercapnic respiratory failure: Status: Acute (2) Acute respiratory failure with hypoxia: Status: Acute (3) Acute exacerbation of chronic obstructive airways disease: Status: Acute (4) Smoking addiction: Status: Acute Assessment and Plan: Continue Breo and Spiriva upon discharge Prednisone taper Consider azithromycin 3 times a week as a treatment for chronic bronchitis Would be beneficial for her to use the oxygen she has evidence of chronic respiratory failure with advanced emphysema. She appears to be understanding the risk that she is taking by not using the oxygen. This risk in glued worsening prognosis and organ damage. These changes can lead to . Will request follow-up with the outpatient pulmonary office Time Spent With Patient Time: Total time spent is greater than 50% in coordination of care (as documented) at patient's floor/unit and/or counseling patient: Time with patient: 15 - 24 minutes
[2020-12-07] MEDS: Fluticasone/Vilanterol 200/25 BLST.W.DEV 1 PUFF INHALE (10:20)
[2020-12-07] MEDS: Azithromycin 500 MG TABLET PO (11:02)
--- NOTE | 2020-12-07 14:20 | P.DS_ITS ---
DS: Providers Provider Date of Service: 12/07/20 Date of admission: 11/26/20 15:54 Primary care physician: Angel Lyles MD Consults: 12/06/20 09:40 Consult to Pulmonology Routine Consulting Provider: Magno Post Reason for consultation: copd, difficulty weaning o2 DS: Diagnosis Discharge Diagnosis (1) Chronic hypercapnic respiratory failure: Status: Acute (2) Acute respiratory failure with hypoxia: Status: Acute (3) Acute exacerbation of chronic obstructive airways disease: Status: Acute (4) Smoking addiction: Status: Acute (5) Bilateral edema of lower extremity: Status: Acute (6) Anxiety attack: Status: Acute DS: Medications Discharge Medications Home Medications: Home Medications Medication Instructions Recorded Confirmed albuterol sulfate 90 mcg/actuation 1 inh INHALATION Q4H g 09/09/20 11/26/20 aerosol inhaler Advil PM 400 mg BEDTIME 11/26/20 11/26/20 Previous Rx's Medication Instructions Recorded nebulizer and compressor #1 ea 04/11/20 buprenorphine 8 mg-naloxone 2 mg 2 film SUBLINGUAL DAILY 7 Days #14 11/23/20 sublingual film ea amlodipine 5 mg PO DAILY 30 Days #30 tab 12/07/20 azithromycin 500 mg PO Q24H #3 tab 12/07/20 dextromethorphan-guaifenesin 2 tab PO BID 10 Days #40 tab 12/07/20 [Mucinex DM] fluticasone furoate-vilanterol 1 puff INHALATION RDAILY 30 Days 12/07/20 [Breo Ellipta] ea nicotine 14 mg TRANSDERMAL DAILY 30 Days ea 12/07/20 prednisone See Taper PO DAILY #30 tab 12/07/20 tiotropium bromide [Spiriva with 18 mcg INHALATION RDAILY 30 Days 12/07/20 HandiHaler] #30 cap DS: Summary Hospital Course Hospital Course: Admission note HPI 70 years old lady with PMH of COPD, active smoker, opioid use disorder, breast CA among others who presented to the hospital for worsening shortness of breath, wheezing and increased swelling in her lower extremities for the last few days. The patient reports she is actively smoking 1 pack a day cigarettes for the last 50 years of her life. Reporting that she failed multiple tries to quit smoking. Over the last few days she noticed worsening shortness of breath and dyspnea on exertion with associated wheezes almost all the time her home medications with not help much with problem. In the emergency blood work looked within normal, chest x-ray not showing any infiltrates but noticed to drop her oxygen sat to 80s on room air. Admitted further evaluation and treatment. Hospital course The patient has prolonged hospital stay full details please returned to EMR. In summary, she was admitted for treatment of acute hypoxic respiratory failure secondary to COPD exacerbation with usage of steroids, nebulizers antibiotic. The patient remained hypoxic on room air after few days of treatment. Pulmonology got involved and Dr. Post decided to start on extra dosage of steroids, Breo and Spiriva inhalers. The patient did improve with treatment and was evaluated by physical therapy team who recommended short-term rehab facility but the patient refused. Oxygen supplement was difficult to be placed at the patient home as the company refused to take it there while the patient and her son actively smoking a earlier during the admission. A repeated home oxygen and discussion with the company who agreed to send the patient home with oxygen supplement and precautions about smoking near to the machine. Next [place] Discharge plan Continue azithromycin as prescribed Continue tapering dose of prednisone To use new inhalers of Spiriva and Breo Use nicotine patches to help y Time Spent with Patient Time attestation: Total time spent providing and/or coordinating discharge services: Discharge coordination time: Greater than 30 minutes Quality: Stroke Does the patient have a stroke diagnosis?: No Physical Exam Vital Signs: Vital Signs: Last Vital Signs Temp 98 F 12/07/20 11:00 Pulse 98 12/07/20 11:00 Resp 20 12/07/20 11:00 BP 152/74 H 12/07/20 11:00 Pulse Ox 87 L 12/07/20 11:00 Body Mass Index 22.6 Const: Other: Constitutional : Alert, oriented, not in distress Neck : Normal inspection, Supple Cardiovascular : RRR, S1 S2, trace lower extremity edema Respiratory : Decreased bilateral air entry, no crackles, trace bilateral expiratory wheezes Gastrointestinal: soft, lax, Normal bowel sounds, Non tender Skin : Warm/Dry, No rash Neurological : Alert & oriented x3, No focal deficit Discharge Plan Discharge Patient Disposition: Home Health Service Discharge Diagnosis: Acute COPD exacerbation acute on chronic respiratory failure Referrals: abdiel visiting nurses [Other] - 1 Week Angel Lyles MD [Primary Care Provider] - 1 Week Discharge Medications: New nicotine 14 mg/24 hr Patch 24 Hour 14 mg transdermal DAILY 30 Days RF: 0 amlodipine 5 mg Tablet 5 mg PO DAILY 30 Days Qty: 30 RF: 0 Mucinex DM 30-600 mg Tablet Extended Release 12 Hr 2 tab PO BID 10 Days Qty: 40 RF: 0 azithromycin 500 mg Tablet 500 mg PO Q24H Qty: 3 RF: 0 Spiriva with HandiHaler 18 mcg Capsule, W/Inhalation Device 18 mcg inhalation RDAILY 30 Days Qty: 30 RF: 0 Breo Ellipta 200-25 mcg/dose Blister With Device 1 puff inhalation RDAILY 30 Days RF: 0 prednisone 10 mg tablet See Taper mg PO DAILY Qty: 30 RF: 0 Continued albuterol sulfate [ProAir HFA] 90 mcg/actuation HFA aerosol inhaler 1 inh inhalation Q4H RF: 0 (DME) nebulizer and compressor Device See Rx Instructions .ROUTE .MEDSUPPLY Qty: 1 RF: 0 Advil PM 400 mg BEDTIME RF: 0 buprenorphine-naloxone [Suboxone] 8-2 mg film 2 film sublingual DAILY 7 Days Qty: 14 RF: 1 Discharge Orders: Discharge Order (Routine); Ordered 12/07/20 Ordered By: Luis Fernando Loera Diet: advance to usual diet Activity on Discharge: As tolerated Stand Alone Forms: Patient Portal Discharge page Care Plan Goals: Read below Health Concerns: Read below Plan of Treatment: You were admitted to the hospital for treatment of difficulty breathing. Found to have low oxygen level and admitted to the hospital for treatment of COPD exacerbation. You were treated with steroids, nebulizers and antibiotic with good response over the course of hospital stay. Evaluated by incident response lead. You will require oxygen at home. Please avoid smoking. Assessment: Continue azithromycin as prescribed Continue tapering dose of prednisone To use new inhalers of Spiriva and Breo Use nicotine patches to help you quit smoking Start amlodipine for blood pressure control To follow-up with Dr. Post as outpatient for further evaluation and treatment of your lung problem
--- NOTE | 2020-12-07 14:25 | W.MHC.F2F ---
Service Date Service Date: 12/07/20 Encounter Date of encounter: 12/07/20 Reasons for Services Reason for physical therapy: home safety and mobility and therapeutic exercises Homebound: Leaving the home is medically contraindicated at this time without the asist of a device and/or another person due th the listed conditions above and below. Certification: Based on the above findings, I certify that this patient is confined to the home and needs intermittent correction care, physical therapy and/or speech therapy, or continues to need occupational therapy. The patient is under my care, and I have initiated the establishment of the plan of care. The patient will be followed by a physician who will periodically review the plan of care.
--- NOTE | 2020-12-07 15:43 | MHC.CM.PN ---
[pt dcd today, states she cant go home and does not want oxygen and will not go to str Iasked her where she was going to go and she responded i will know when i get there callled and left message for her son/petr who is her hcp [phone] awaiting call back
--- NOTE | 2020-12-07 16:16 | P.PNIM_ITS ---
Subjective Subjective Date of Service: 12/07/20 Interval History: Seen and evaluated this morning Feels much better but oxygen saturation dropped to 87 on room air Difficult to place as she cannot take oxygen home and she has been refusing to go to rehab facility Denies any fever or chills No reported other overnight events Review of Systems No fever, chills but reports generalized weakness No chest pain, palpitation Shortness of breath, dyspnea on exertion coughing with drop in oxygen level below 90 No abdominal pain, nausea or vomiting No urinary symptoms No any rash or wounds Physical Exam Vital Signs: Vital Signs: Last Vital Signs Temp 98 F 12/07/20 15:28 Pulse 93 12/07/20 15:28 Resp 18 12/07/20 15:28 BP 135/63 12/07/20 15:28 Pulse Ox 96 12/07/20 15:28 Body Mass Index 22.6 Const: Other: Constitutional : Alert, oriented, not in distress Neck : Normal inspection, Supple Cardiovascular : RRR, S1 S2, trace lower extremity edema Respiratory : Decreased but fair bilateral air entry, no crackles, trace very minimal expiratory wheezes Gastrointestinal: soft, lax, Normal bowel sounds, Non tender Skin : Warm/Dry, No rash Neurological : Alert & oriented x3, No focal deficit Objective Data Current Medications Generic Name Dose Route Start Last Admin Trade Name José Manuelq PRN Reason Stop Dose Admin Acetaminophen 650 mg 11/26/20 19:02 12/07/20 02:58 Acetaminophen 325 Mg Tablet PO 650 mg Q6H PRN Administration Pain, Mild (Pain Scale 1-3) Amlodipine Besylate 5 mg 12/03/20 09:00 12/07/20 08:53 Amlodipine Besylate 5 Mg Tablet PO 5 mg DAILY ANDREW Administration Protocol Azithromycin 500 mg 12/06/20 11:00 12/07/20 11:02 Azithromycin 500 Mg Tablet PO 500 mg Q24H ANDREW Administration Buprenorphine/Naloxone 1 film 12/03/20 18:00 12/07/20 09:00 Buprenorphine/Naloxone 8/2 Mg Film SUBLINGUAL 1 film BID@0600,1800 ANDREW Administration Enoxaparin Sodium 40 mg 11/26/20 20:00 12/06/20 20:49 Enoxaparin Sodium 40 Mg/0.4 Ml Syringe SUBCUT 40 mg Q24H ANDREW Administration Fluticasone/Vilanterol 1 puff 12/07/20 08:00 12/07/20 10:20 Fluticasone/Vilanterol 200/25 Blst.W.Dev INHALE 1 puff RDAILY ANDREW Administration Guaifenesin/Dextromethorphan 2 tab 12/06/20 21:00 12/07/20 08:53 Guaifenesin Dm 600/30 1 Tab Tab.Er.12h PO 2 tab BID ANDREW Administration Hydroxyzine HCl 25 mg 11/26/20 16:04 12/06/20 23:57 Hydroxyzine Hcl 25 Mg Tablet PO 25 mg Q6H PRN Administration anxiety/restlessness Ibuprofen 400 mg 11/26/20 19:02 12/07/20 00:00 Ibuprofen 400 Mg Tablet PO 400 mg Q6H PRN Administration Fever or Pain, mild Lorazepam 0.25 mg 12/05/20 13:59 12/07/20 02:58 Lorazepam 0.5 Mg Tablet PO 0.25 mg Q6H PRN Administration anxiety Nicotine 14 mg 11/26/20 19:02 12/07/20 08:54 Nicotine 14 Mg Patch.Td24 TRANSDERMA 14 mg DAILY ANDREW Administration Ondansetron HCl 4 mg 11/26/20 19:02 Ondansetron Hcl 4 Mg/2 Ml Vial IVPUSH Q8H PRN Nausea and Vomiting Prednisone 40 mg 12/04/20 09:00 12/07/20 08:53 Prednisone 20 Mg Tablet PO 40 mg DAILY ANDREW Administration Sodium Chloride 3 ml 11/26/20 19:02 12/07/20 08:52 0.9 % Sodium Chloride Flush 3 Ml Syringe IVFLUSH 3 ml QSHIFT ANDREW Administration Tiotropium [facility] [place] 1 puff 12/07/20 08:00 12/07/20 10:20 Tiotropium [facility] [place] 18 Mcg Cap.W.Dev INHALE 1 puff RDAILY ANDREW Administration Labs CBC & Chem 7: 12/05/20 05:50 12/05/20 05:50 Quality Stroke Does the patient have a stroke diagnosis?: No VTE Prior VTE?: No VTE Risk Level:: Medical - moderate - high VTE Device Contraindication: Treatment Not Indicated VTE Drug Contraindication: N/A - Med Ordered Assessment and Plan (1) Chronic hypercapnic respiratory failure: Status: Acute (2) Acute respiratory failure with hypoxia: Status: Acute (3) Acute exacerbation of chronic obstructive airways disease: Status: Acute (4) Smoking addiction: Status: Acute (5) Bilateral edema of lower extremity: Status: Acute (6) Anxiety attack: Status: Acute Assessment and Plan: 70 years old lady with PMH of COPD, active smoker, opioid use disorder, breast CA among others who presented to the hospital for worsening shortness of breath, wheezing and increased swelling in her lower extremities for the last few days. Acute hypoxic respiratory failure Secondary to COPD exacerbation prolonged hospital stay with minimal improvement, seems to be requiring oxygen supplements from now on pulm appreciated Continue azitrhomycin day 2 continue prednisone, tapering Continue duo nebs Unable to discharge home today as the patient claims she cannot have oxygen at home and she has been refusing to go to rehab facility Physical deconditioning Secondary to prolonged hospital stay PT recommended SNF but the patient is refusing Anxiety attacks better controlled Likely associated with feeling of dyspnea Continue use Ativan and Atarax as needed Smoking addiction Advised about quitting smoking Continue use nicotine patches To get care team involved Bilateral lower extremity swelling Likely secondary to diastolic dysfunction from chronic COPD Improved with diuresis, now off diuresis DVT PPX Lovenox
[2020-12-07] MEDS: Enoxaparin Sodium 40 MG/0.4 ML SYRINGE SUBCUT (19:42)
[2020-12-07] MEDS: hydrOXYzine HCL 25 MG TABLET PO (22:56)
[2020-12-08 04:00] VITALS: BP 135/63; PULSE 103; RESP 18; TEMP 36.4; O2SAT 92
[2020-12-08] MEDS: Buprenorphine/Naloxone 8/2 mg FILM 1 FILM SUBLINGUAL (07:09)
[2020-12-08 08:00] VITALS: BP 166/82; PULSE 92; RESP 20; TEMP 36.1; O2SAT 95
[2020-12-08] MEDS: guaiFENesin DM 600/30 1 TAB TAB.ER.12H 2 TAB PO (08:42)
[2020-12-08] MEDS: 0.9 % Sodium Chloride Flush 3 ML SYRINGE IVFLUSH (08:42)
[2020-12-08] MEDS: predniSONE 20 MG TABLET 40 MG PO (08:42)
[2020-12-08] MEDS: amLODIPine Besylate 5 MG TABLET PO (08:42)
[2020-12-08] MEDS: Nicotine 14 MG PATCH.TD24 TRANSDERMA (08:43)
[2020-12-08] MEDS: Fluticasone/Vilanterol 200/25 BLST.W.DEV 1 PUFF INHALE (08:48)
[2020-12-08] MEDS: Azithromycin 500 MG TABLET PO (11:26)
[2020-12-08 11:55] VITALS: BP 166/82; PULSE 92; O2SAT 95
[2020-12-08 12:00] VITALS: O2SAT 95
--- NOTE | 2020-12-08 13:16 | HO.PM.IMPN ---
Subjective Subjective Date of Service: 12/08/20 Interval History: Seen and evaluated this morning Feels much better but oxygen saturation dropped to 87 on room air, on 2L O2 w sat 92% Difficult to place as she cannot take oxygen home and she has been refusing to go to rehab facility as she wants to smoke Denies any fever or chills No reported other overnight events Review of Systems No fever, chills but reports generalized weakness No chest pain, palpitation Shortness of breath, dyspnea on exertion coughing with drop in oxygen level below 90 No abdominal pain, nausea or vomiting No urinary symptoms No any rash or wounds Physical Exam Vital Signs: Vital Signs: Last Vital Signs Temp 97 F 12/08/20 08:00 Pulse 92 12/08/20 11:55 Resp 20 12/08/20 08:00 BP 166/82 H 12/08/20 11:55 Pulse Ox 95 12/08/20 12:00 Body Mass Index 22.6 Const: Other: Constitutional : Alert, oriented, not in distress Neck : Normal inspection, Supple Cardiovascular : RRR, S1 S2, trace lower extremity edema Respiratory : Decreased but fair bilateral air entry, no crackles, trace bilateral expiratory wheezes Gastrointestinal: soft, lax, Normal bowel sounds, Non tender Skin : Warm/Dry, No rash Neurological : Alert & oriented x3, No focal deficit Objective Data Current Medications Generic Name Dose Route Start Last Admin Trade Name José Manuelq PRN Reason Stop Dose Admin Acetaminophen 650 mg 11/26/20 19:02 12/07/20 02:58 Acetaminophen 325 Mg Tablet PO 650 mg Q6H PRN Administration Pain, Mild (Pain Scale 1-3) Amlodipine Besylate 5 mg 12/03/20 09:00 12/08/20 08:42 Amlodipine Besylate 5 Mg Tablet PO 5 mg DAILY ANDREW Administration Protocol Azithromycin 500 mg 12/06/20 11:00 12/08/20 11:26 Azithromycin 500 Mg Tablet PO 500 mg Q24H ANDREW Administration Buprenorphine/Naloxone 1 film 12/03/20 18:00 12/08/20 07:09 Buprenorphine/Naloxone 8/2 Mg Film SUBLINGUAL 1 film BID@0600,1800 ANDREW Administration Enoxaparin Sodium 40 mg 11/26/20 20:00 12/07/20 19:42 Enoxaparin Sodium 40 Mg/0.4 Ml Syringe SUBCUT 40 mg Q24H ANDREW Administration Fluticasone/Vilanterol 1 puff 12/07/20 08:00 12/08/20 08:48 Fluticasone/Vilanterol 200/25 Blst.W.Dev INHALE 1 puff RDAILY ANDREW Administration Guaifenesin/Dextromethorphan 2 tab 12/06/20 21:00 12/08/20 08:42 Guaifenesin Dm 600/30 1 Tab Tab.Er.12h PO 2 tab BID ANDREW Administration Hydroxyzine HCl 25 mg 11/26/20 16:04 12/07/20 22:56 Hydroxyzine Hcl 25 Mg Tablet PO 25 mg Q6H PRN Administration anxiety/restlessness Ibuprofen 400 mg 11/26/20 19:02 12/07/20 00:00 Ibuprofen 400 Mg Tablet PO 400 mg Q6H PRN Administration Fever or Pain, mild Lorazepam 0.25 mg 12/05/20 13:59 12/07/20 22:56 Lorazepam 0.5 Mg Tablet PO 0.25 mg Q6H PRN Administration anxiety Nicotine 14 mg 11/26/20 19:02 12/08/20 08:43 Nicotine 14 Mg Patch.Td24 TRANSDERMA 14 mg DAILY ANDREW Administration Ondansetron HCl 4 mg 11/26/20 19:02 Ondansetron Hcl 4 Mg/2 Ml Vial IVPUSH Q8H PRN Nausea and Vomiting Prednisone 40 mg 12/04/20 09:00 12/08/20 08:42 Prednisone 20 Mg Tablet PO 40 mg DAILY ANDREW Administration Sodium Chloride 3 ml 11/26/20 19:02 12/08/20 08:42 0.9 % Sodium Chloride Flush 3 Ml Syringe IVFLUSH 3 ml QSHIFT ANDREW Administration Tiotropium [place] 1 puff 12/07/20 08:00 12/08/20 08:48 Tiotropium [place] 18 Mcg Cap.W.Dev INHALE 1 puff RDAILY ANDREW Administration Labs CBC & Chem 7: 12/05/20 05:50 12/05/20 05:50 Quality Stroke Does the patient have a stroke diagnosis?: No VTE Prior VTE?: No VTE Risk Level:: Medical - moderate - high VTE Device Contraindication: Treatment Not Indicated VTE Drug Contraindication: N/A - Med Ordered Assessment and Plan (1) Chronic hypercapnic respiratory failure: Status: Acute (2) Acute respiratory failure with hypoxia: Status: Acute (3) Acute exacerbation of chronic obstructive airways disease: Status: Acute (4) Smoking addiction: Status: Acute (5) Bilateral edema of lower extremity: Status: Acute (6) Anxiety attack: Status: Acute Assessment and Plan: 70 years old lady with PMH of COPD, active smoker, opioid use disorder, breast CA among others who presented to the hospital for worsening shortness of breath, wheezing and increased swelling in her lower extremities for the last few days. Acute hypoxic respiratory failure Secondary to COPD exacerbation seems to be requiring oxygen supplements from now on pulm appreciated Continue azitrhomycin day 3 continue prednisone, tapering Continue duo nebs Unable to discharge home today as the patient claims she cannot have oxygen at home and she has been refusing to go to rehab facility Physical deconditioning Secondary to prolonged hospital stay PT recommended SNF but the patient is refusing Anxiety attacks better controlled Likely associated with feeling of dyspnea Continue use Ativan and Atarax as needed Smoking addiction Advised about quitting smoking, she still wants to smoke upon discharge Continue use nicotine patches To get care team involved Bilateral lower extremity swelling Likely secondary to diastolic dysfunction from chronic COPD Improved with diuresis, now off diuresis DVT PPX Lovenox
--- NOTE | 2020-12-08 13:17 | MHC.CM.PN ---
Addendum entered by Ivette Lopez 12/08/20 14:34: PT NOW STATING SHE WANTS TO DC HOME. PT STATED SHE WANTED TO LEAVE AMA HOWEVER NURSING STAFF ENCOURAGED HER TO WAIT SO THAT HER HOME OXYGEN COULD BE ARRANGED. VNA HAS BEEN ARRANGED FOR SEVERAL DAYS. PT WILL ALSO NEED BLS TRANSPORT DUE TO HER NEW OXYGEN. PER RT, PT REQUIRED A NEW HOME O2 EVAL ORDER SHE HAD REFUSED IT EARLIER IN THE ADMISSION. ORDER WAS ENTERED AND RT CURRENTLY WORKING ON HOME O2 EVAL. CURRENT DC PLAN IS HOME WITH [facility] FOR SN AND PT, NEW HOME OXYGEN AND BLS TRANSPORT. Original Note: CM MET WITH PT THIS MORNING ALONG WITH HER HOSPITALIST. PT WAS AGAIN ENCOURAGED TO GO TO STR. PT REPORTED AT THAT TIME SHE WOULD BE AGREEABLE TO STR LONG SHE COULD SMOKE. CM MADE SEVERAL REFERRALS AND ONLY [facility] OFFERED A BED. CM MET WITH PT AGAIN TO DISCUSS STR [facility] OFFERED A BED AT [facility] [facility] AND WANTED PTS PREFERENCE. PT REPORTED SHE WANTED HER SON TO PICK HER UP ON HIS DAY OFF AND TAKE HER TO TOUR THESE FACILITIES BEFORE SHE CHOSE ONE. CM EXPLAINED SHE WAS ALREADY DISCHARGED AND WOULD NEED TO CHOOSE A FACILITY. CM ENCOURAGED HER TO USE GOOGLE AND THE MEDICARE RATINGS TO CHOOSE A FACILITY. PT REPORTED SHE WOULD SPEAK TO HER SON. CM ALSO OBTAINED PTS COVID VACCINATION STATUS FOR THE SNF. CM MESSAGED SNF AND INFORMED THEM THE PT HAS NOT BEEN VACCINATED AGAINST COVID-19. CM WAS THEN INFORMED THEY ONLY HAD A BED AVAILABLE AT THE [facility]. CM WENT BACK AND INFORMED THE PT THAT THERE WAS ONLY A BED OFFER FROM [facility] AND PT REPORTED SHE WAS NOT GOING TODAY. TEENA ASKED PT WHY SHE FELT SHE NEEDED TO STAY INPT AND SHE JUST SAID AGAIN. I AM NOT GOING TODAY . CM INFORMED HER SHE HAD ALREADY BEEN DISCHARGED AND SHOULD FILE AN APPEAL. CM DELIVERED A 4TH COPY OF HER MEDICARE RIGHTS AND ASSISTED HER WITH THE CALL. PT FILED THE APPEAL AND WAS GIVEN A REFERENCE NUMBER. FOLLOWING THE PHONE CALL, CM ASKED PT FOR MORE DETAIL ON HER REASON FOR WANTING TO STAY AND WHAT SHE FELT THE MD OR CM COULD DO TO MAKE HER FEEL PREPARED FOR DC. PT THEN STATED SHE WAS NOT GOING TO GO TO STR AND PLANNED TO GO HOME BUT NEEDS TO WAIT FOR HER SON TO GET HOME. CM INFORMED HER THAT SHE COULD HAVE WAITED FOR HER SON TO BE HOME BUT IT IS UNCLEAR IF THE MD IS GOING TO DC HER TO HOME STR HAS BEEN RECOMMENDED. CM WILL DISCUSS FURTHER WITH MD WHILE PTS APPEAL IS BEING PROCESSED. OF NOTE, CM HAS ATTEMPTED TO CONTACT PTS SON CARRI ([phone]) TODAY AND, PER CM NOTES, MESSAGES WERE LEFT FOR HIM YESTERDAY BY THE PREVIOUS CM. HE HAS NOT YET RETURNED ANY OF THE PHONE CALLS.
[2020-12-08] MEDS: Furosemide 40 MG TABLET PO (14:38)
[2020-12-08 15:08] VITALS: BP 158/63; PULSE 104; RESP 20; TEMP 36.6; O2SAT 91
--- NOTE | 2020-12-08 17:16 | MHC.CARE ---
CARE Team met with Pt to provide support. Pt declined CARE Team services at this time.
--- NOTE | 2020-12-09 14:16 | W.MHC.F2F ---
Service Date Service Date: 12/09/20 Encounter Date of encounter: 12/08/20 Reasons for Services Reason for assisted: medication treatment and teach disease management Reason for physical therapy: home safety and mobility and therapeutic exercises Homebound: Leaving the home is medically contraindicated at this time without the asist of a device and/or another person due th the listed conditions above and below. Certification: Based on the above findings, I certify that this patient is confined to the home and needs intermittent assisted care, physical therapy and/or speech therapy, or continues to need occupational therapy. The patient is under my care, and I have initiated the establishment of the plan of care. The patient will be followed by a physician who will periodically review the plan of care.
== END 2020-12-08 17:25 | disposition home health service (06) | DRG 190 ==
LOC: HO.ED 14:29 → HO.EDOVER 16:02 → HO.IMC 17:25
PROVIDERS: Internal Medicine; Admitting Provider Student in an Organized Health Care Education/Training Program; Emergency Provider Emergency Medicine Emergency Medical Services; PCP Internal Medicine; Visit Provider Student in an Organized Health Care Education/Training Program
DX: J43.9 Emphysema, unspecified (principal); J96.21 Acute and chronic respiratory failure with hypoxia; F17.210 Nicotine dependence, cigarettes, uncomplicated; Z71.6 Tobacco abuse counseling; F41.9 Anxiety disorder, unspecified; Z85.3 Personal history of malignant neoplasm of breast; Z20.822 Contact with and (suspected) exposure to COVID-19; Z79.899 Other long term (current) drug therapy
CPT/HCPCS: 0241U; 36415; 36600; 71045; 80048; 80076; 80305; 81003; 83605; 83880; 84484; 85025; 85027; 85379; 85610; 87040; 93005; 94640; 94644; 97110; 97162; 99212; 99284; J0456; J1650; J1940; J2060; J2920; J2930

== ENCOUNTER 2020-12-16 16:30 | Inpatient (IN) | payer MEDICARE, SELFPAY ==
--- NOTE | 2020-12-16 | ECG_ITS ---
Test Reason : SOB Blood Pressure : / mmHG Vent. Rate : 101 BPM Atrial Rate : 101 BPM P-R Int : 142 ms QRS Dur : 068 ms QT Int : 336 ms P-R-T Axes : 080 054 073 degrees QTc Int : 435 ms Sinus tachycardia Biatrial enlargement Abnormal ECG When compared with ECG of 26-NOV-2020 12:12, No significant change was found Referred By: Generic ED Physician Electronically Signed By:Bari Delvalle
--- NOTE | ~2020-12-16 | XR_ITS ---
EXAMINATION: XR CHEST CLINICAL INFORMATION: Shortness of breath COMPARISON: Chest x-ray 12/02/2020 TECHNIQUE: Frontal portable view of the chest was obtained. 5:41 PM FINDINGS: No acute change of chest. The pulmonary vascular congestion. No focal consolidation. There is no pleural effusion pneumothorax. The questioned nodular density in the left suprahilar region on prior chest x-ray 08/04/2020 is not seen on today's exam. XR/XR chest 1V IMPRESSION: No acute abnormality of chest.
[2020-12-16 16:37] VITALS: BP 182/98; PULSE 110; RESP 22; TEMP 37.1; O2SAT 92; BMI 24.0
[2020-12-16 16:56] LABS: MANUAL DIFF FLAG NO
[2020-12-16 16:59] LABS: Venous Blood Gas Refer to POC result
[2020-12-16 17:00] LABS: VBG Base Excess 0.6 mmol/L; VBG HCO3 27 mmol/L (22-26); VBG pCO2 50 mmHg; VBG pH 7.33 (7.32-7.43); VBG pO2 68 mmHg
[2020-12-16 17:01] LABS: Basophils Percent Auto 0.1 % (0-2); Eosinophils Percent Auto 0.1 % (0-4); Hemoglobin 13.1 g/dl (12.0-16.0); Imm Gran Pct Auto 1.4 % (0.0-0.4); Lymphocytes Absolute Auto 2.1 X10*3/uL (1.2-4.9); Lymphocytes Percent Auto 14.4 % (20-40); Mean Corpuscular Hemoglobin 30.3 pg (27.0-33.0); Mean Corpuscular Volume 94.9 fL (80-98); Mean Platelet Volume 8.4 fL (9.4-12.3); Monocytes Absolute Auto 1.2 X10*3/uL (0.1-1.2); Monocytes Percent Auto 8.4 % (2-11); Neutrophils Absolute Auto 10.8 X10*3/uL (2.0-8.3); Neutrophils Percent Auto 75.6 % (45-73); Platelet Count 330 X10*3/uL (160-400); Red Blood Count 4.32 X10*6/uL (4.20-5.50); Red Cell Distribution Width 15.5 % (11.0-16.0); White Blood Count 14.3 X10*3/uL (4.8-10.8)
--- NOTE | 2020-12-16 17:04 | ED.SOB ---
HPI - SOB/Dyspnea General Chief Complaint: Dyspnea Stated Complaint: sob, htn Time Seen by Provider: 12/16/20 17:04 Source: patient Mode of arrival: EMS Limitations: no limitations History of Present Illness HPI Narrative: Patient is 70 years old with history of COPD active smoker opiate use disorder of breast cancer , actively smoking 1 pack a day was admitted here on 11/26 till 12/07 [facility] on home oxygen, prednisone and VNA services patient refused venous to come to her house and does not have any oxygen comes back here for increased shortness of breath patient does have chronic cough no fever no chills no chest pain patient is saturating 87% at room air patient denies any confusion no chest pain no syncope Related Data Home Medications Medication Instructions Recorded Confirmed albuterol sulfate 90 mcg/actuation 1 inh INHALATION Q4H g 09/09/20 12/16/20 aerosol inhaler Advil PM 400 mg BEDTIME 11/26/20 12/16/20 Previous Rx's Medication Instructions Recorded nebulizer and compressor #1 ea 04/11/20 buprenorphine 8 mg-naloxone 2 mg 2 film SUBLINGUAL DAILY 7 Days #14 11/23/20 sublingual film ea amlodipine 5 mg PO DAILY 30 Days #30 tab 12/07/20 azithromycin 500 mg PO Q24H #3 tab 12/07/20 dextromethorphan-guaifenesin 2 tab PO BID 10 Days #40 tab 12/07/20 [Mucinex DM] fluticasone furoate-vilanterol 1 puff INHALATION RDAILY 30 Days 12/07/20 [Breo Ellipta] ea nicotine 14 mg TRANSDERMAL DAILY 30 Days ea 12/07/20 prednisone See Taper PO DAILY #30 tab 12/07/20 tiotropium bromide [Spiriva with 18 mcg INHALATION RDAILY 30 Days 12/07/20 HandiHaler] #30 cap Allergies Allergy/AdvReac Type Severity Reaction Status Date / Time No Known Allergies Allergy Verified 11/09/20 13:52 [No Known Allergies*] Review of Systems Review of Systems: Constitutional : No Weight loss, No Fever, No Chills ENT/Mouth : No sore throat, No Rhinorrhea Eyes: No Eye Pain, No Swelling Cardiovascular : No Chest Pain, no palpitations Respiratory : ++ Cough, No Sputum, +shortness of breath Gastrointestinal : no Nausea, No Vomiting, No Diarrhea, No abdominal Pain, no black stools Genitourinary : No Dysuria, No Urinary Frequency Musculoskeletal : No joint pain, No Myalgias, No Joint Swelling Skin : No Skin Lesions, No rash Neuro : No Weakness, No Numbness, No Dizziness, No Headache Psych : No Anxiety/Panic, No Depression Heme/Lymph: No Bruising, No Lymphadenopathy Endocrine : No Polyuria, No Polydipsia All other systems reviewed and are negative [facility] Past Medical History Medical History Breast cancer Chronic hypercapnic respiratory failure Chronic pain COPD (chronic obstructive pulmonary disease) COPD (chronic obstructive pulmonary disease) Depression Fibromyalgia Hypoxia Smoking addiction Substance abuse Surgical History H/O mastectomy Family History Family History Father No problems noted. Mother No problems noted. Social History Social History Household Members: Children Household Members Other:: Son Housing: Apartment Do you presently have visiting nurse or other home services: No Alcohol intake: current Alcohol intake frequency: holidays/special occasions only Patient Tobacco Use Status: Current everyday Tobacco user Tobacco use type: Cigarette Cigarette Packs Per Day: 1.5 Cigarettes Per Day: 30.0 Years Smoked: 50 Smoked in Last 30 Days: Yes Patient Interested in Nicotine Replacement: No Second Hand Smoke Exposure: Yes Use of substances other than those prescribed or required for medical reasons: No Substance Use Type: Heroin and Other Have you been hit, kicked, punched, or otherwise hurt by someone within the past year? If so, by whom?: No Do you feel safe in your current relationship?: Yes Is there a partner from a previous relationship who is making you feel unsafe now?: No Are you made to feel afraid or neglected: No Advance Directives: Yes Advance Directives on File: Yes Advance Directives Date on File: 04/05/20 Do you have thoughts of harming others: None Do you have a plan to hurt others: No Plan Recently lost weight without trying: No Nutrition Risks: No Nutritional Risk Patient : No : No Poor oral hygiene: No service: No Current occupational status: disabled Physical Exam Vital Signs: Vital Signs: Last Vital Signs Temp 98.5 F 12/16/20 23:37 Pulse 97 12/16/20 23:37 Resp 20 12/16/20 23:37 BP 130/61 12/16/20 23:37 Pulse Ox 92 12/16/20 23:37 Oxygen Flow Rate 3 12/16/20 16:37 Body Mass Index 24.0 Appearance: Alert. Oriented X3. No acute distress. Eyes: PERRLA, No Nystagmus ENT: Pharynx normal. Oral Mucosa moist Neck: Normal inspection. Neck supple. CVS: Normal heart rate and rhythm. Pulses normal. Respiratory: No respiratory distress. Equal air entry bilateral, ++ wheezing +rhonchi Abdomen: Soft and nontender. Bowel sounds are present, no mass palpable, no CVA tenderness Skin: Skin warm and dry. Normal skin color. Normal skin turgor. Extremities: 1 + lower extremity edema. No calf tenderness Neuro: Oriented X 3. No motor deficit. No sensory deficit.No cerebellar signs , cranial nerves II-XII intact MDM - SOB/Dyspnea MDM Narrative Medical decision making narrative: Patient with COPD chronic smoker with chronic hypoxia refusing to have oxygen at home diffusing vena to visit just discharged from the hospital admit patient for COPD and chronic hypoxia Lab Data Attestation: I reviewed the patient's lab results. Result diagrams: 12/16/20 16:52 12/16/20 16:52 Labs: Lab Results 12/16/20 12/16/20 12/16/20 Range/Units 16:48 16:52 16:52 WBC 14.3 H (4.8-10.8) X10*3/uL RBC 4.32 (4.20-5.50) X10*6/uL Hgb 13.1 (12.0-16.0) g/dl Hct 41.0 (37-47) % MCV 94.9 (80-98) fL MCH 30.3 (27.0-33.0) pg MCHC 32.0 (31.0-35.0) g/dl RDW 15.5 (11.0-16.0) % Plt Count 330 (160-400) X10*3/uL MPV 8.4 L (9.4-12.3) fL Immature Gran % (Auto) 1.4 H (0.0-0.4) % Neut % (Auto) 75.6 H (45-73) % Lymph % (Auto) 14.4 L (20-40) % [place] % (Auto) 8.4 (2-11) % Eos % (Auto) 0.1 (0-4) % Baso % (Auto) 0.1 (0-2) % Lymph # (Auto) 2.1 (1.2-4.9) X10*3/uL [place] # (Auto) 1.2 (0.1-1.2) X10*3/uL Eos # (Auto) 0.0 (0.0-0.4) X10*3/uL Baso # (Auto) 0.0 (0.0-0.2) X10*3/uL Abs Immat Gran (auto) 0.20 H (0.00-0.03) X10*3/uL Absolute Neuts (auto) 10.8 H (2.0-8.3) X10*3/uL Absolute Nucleated RBC 0.000 (0.0-0.012) X10*3/uL Nucleated RBC % (auto) 0.0 (0.0-0.2) /100WBC VBG pH (7.32-7.43) VBG pCO2 mmHg VBG pO2 mmHg VBG HCO3 (22-26) mmol/L VBG O2 Saturation % VBG Base Excess mmol/L Sodium 141 (135-145) mmol/L Potassium 4.1 (3.3-5.1) mmol/L Chloride 104 (96-108) mmol/L Carbon Dioxide 29 (22-29) mmol/L Anion Gap 12 (12-20) BUN 20 H D (9-16) mg/dL Creatinine 0.94 (0.5-1.4) mg/dL Estim Creat Clear Calc 47.3 Estimated GFR 59 Random Glucose 100 (60-115) mg/dL Calcium 9.2 (8.4-10.2) mg/dL Total Bilirubin < 0.2 (0.0-1.0) mg/dL AST 18 (5-31) U/L ALT 22 (0-31) U/L Alkaline Phosphatase 97 (39-117) U/L Troponin I High Sens (<3.5-17.0) ng/L B-Natriuretic Peptide (<100) pg/mL Total Protein 7.5 (6.5-8.0) g/dL Albumin 4.2 (3.5-5.0) g/dL Lipase 12 (8-78) U/L COVID-19 ([facility]) Negative (Negative) COVID-19 Clin Com See Note 12/16/20 12/16/20 Range/Units 16:52 16:52 WBC (4.8-10.8) X10*3/uL RBC (4.20-5.50) X10*6/uL Hgb (12.0-16.0) g/dl Hct (37-47) % MCV (80-98) fL MCH (27.0-33.0) pg MCHC (31.0-35.0) g/dl RDW (11.0-16.0) % Plt Count (160-400) X10*3/uL MPV (9.4-12.3) fL Immature Gran % (Auto) (0.0-0.4) % Neut % (Auto) (45-73) % Lymph % (Auto) (20-40) % [place] % (Auto) (2-11) % Eos % (Auto) (0-4) % Baso % (Auto) (0-2) % Lymph # (Auto) (1.2-4.9) X10*3/uL [place] # (Auto) (0.1-1.2) X10*3/uL Eos # (Auto) (0.0-0.4) X10*3/uL Baso # (Auto) (0.0-0.2) X10*3/uL Abs Immat Gran (auto) (0.00-0.03) X10*3/uL Absolute Neuts (auto) (2.0-8.3) X10*3/uL Absolute Nucleated RBC (0.0-0.012) X10*3/uL Nucleated RBC % (auto) (0.0-0.2) /100WBC VBG pH 7.33 (7.32-7.43) VBG pCO2 50 mmHg VBG pO2 68 mmHg VBG HCO3 27 H (22-26) mmol/L VBG O2 Saturation 93.0 % VBG Base Excess 0.6 mmol/L Sodium (135-145) mmol/L Potassium (3.3-5.1) mmol/L Chloride (96-108) mmol/L Carbon Dioxide (22-29) mmol/L Anion Gap (12-20) BUN (9-16) mg/dL Creatinine (0.5-1.4) mg/dL Estim Creat Clear Calc Estimated GFR Random Glucose (60-115) mg/dL Calcium (8.4-10.2) mg/dL Total Bilirubin (0.0-1.0) mg/dL AST (5-31) U/L ALT (0-31) U/L Alkaline Phosphatase (39-117) U/L Troponin I High Sens 11.2 D (<3.5-17.0) ng/L B-Natriuretic Peptide 190 H (<100) pg/mL Total Protein (6.5-8.0) g/dL Albumin (3.5-5.0) g/dL Lipase (8-78) U/L COVID-19 ([facility]) (Negative) COVID-19 Clin Com ECG Data Attestation: I personally reviewed and interpreted this ECG as follows: Interpretation: Sinus rhythm heart rate of 101 normal axis normal intervals no acute ST T-wave changes no ischemia Discharge Plan Discharge Clinical Impression: Hypoxia COPD (chronic obstructive pulmonary disease) with emphysema Qualifiers: Emphysema type: unspecified Qualified Code(s): J43.9 - Emphysema, unspecified Patient Disposition: Admitted As Inpatient Interventions: Admission Worksheet (ED) Last Done: 12/16/20 18:43 Discharge Date/Time: 12/16/20 19:05
[2020-12-16 17:23] LABS: COVID-19 Test Negative (Negative); IDNOW Serial# 9DD0AD1C
[2020-12-16 17:23] LABS: Alanine Aminotransferase 22 U/L (0-31); Albumin Level 4.2 g/dL (3.5-5.0); Alkaline Phosphatase 97 U/L (39-117); Anion Gap 12 (12-20); Aspartate Amino Transferase 18 U/L (5-31); Bilirubin Total < 0.2 mg/dL (0.0-1.0); Blood Urea Nitrogen 20 mg/dL (9-16); Calcium 9.2 mg/dL (8.4-10.2); Carbon Dioxide 29 mmol/L (22-29); Chloride 104 mmol/L (96-108); Creatinine Clr Calc Pharmacy 47.3; Estimated Glomerular Filt Rate 59; Glucose Random 100 mg/dL (60-115); Lipase 12 U/L (8-78); Potassium 4.1 mmol/L (3.3-5.1); Sodium 141 mmol/L (135-145); Total Protein 7.5 g/dL (6.5-8.0)
[2020-12-16 17:27] LABS: Troponin-I High Sensitivity 11.2 ng/L (<3.5-17.0)
[2020-12-16 17:37] LABS: B Type Natriuretic Peptide 190 pg/mL (<100)
[2020-12-16 17:39] VITALS: O2SAT 87
[2020-12-16] MEDS: methylPREDNISolone Sod Succ 125 MG/2 ML VIAL IVPUSH (17:47)
[2020-12-16] MEDS: Albuterol/Iprat 2.5/0.5MG 3 ML AMPUL.NEB INHALE (17:47)
--- NOTE | 2020-12-16 18:05 | PM.IMHP ---
History of Present Illness Date of Service: 12/16/20 Chief Complaint: sob 70F active smoker with COPD presented shortness of breath. Patient was recently discharged after prolonged hospitalization for COPD exacerbation on 12/09/2020 with plan for home oxygen. However, it seems like patient did not have oxygen at home, unclear why. Patient now stating that she has had 1 day of worsening shortness of breath. She denies fever, chills. Her cough has persisted since her previous admission. In ED noted to be hypoxic 87 on room air. Chest x-ray unremarkbale Review of Systems Review of Systems: Constitutional: Denies fever, denies Chills Eyes: denies blurry vision ENT: denies sore throat CVS: denies chest pain Respiratory: dyspnea GI: no abdominal pain : denies dysuria MSK: denies neck pain Skin: denies rash Neuro: denies specific motor weakness Psych: denies suicidal ideation Endocrine: denies heat/cold intoleratnce Hematologic: denies easy bleeding Allergy: denies hives [facility] Medical History Breast cancer Chronic hypercapnic respiratory failure Chronic pain COPD (chronic obstructive pulmonary disease) COPD (chronic obstructive pulmonary disease) Depression Fibromyalgia Hypoxia Smoking addiction Substance abuse Family History Father No problems noted. Mother No problems noted. Family history: reviewed and not pertinent Surgical History H/O mastectomy Social History Household Members: Children Household Members Other:: Son Housing: House Do you presently have visiting nurse or other home services: No Alcohol intake: current Alcohol intake frequency: holidays/special occasions only Patient Tobacco Use Status: Current everyday Tobacco user Cigarette Packs Per Day: 1.5 Cigarettes Per Day: 30.0 Years Smoked: 50 Second Hand Smoke Exposure: Yes Substance Use Type: Heroin and Other Advance Directives: Yes Advance Directives on File: Yes Advance Directives Date on File: 04/05/20 service: No Current occupational status: disabled Meds Allergies Allergy/AdvReac Type Severity Reaction Status Date / Time No Known Allergies Allergy Verified 11/09/20 13:52 [No Known Allergies*] Home Medications Medication Instructions Recorded Confirmed Last Taken Type albuterol sulfate 90 mcg/actuation 1 inh INHALATION Q4H g 09/09/20 12/16/20 Unknown History aerosol inhaler Advil PM 400 mg BEDTIME 11/26/20 12/16/20 Unknown History Physical Exam Vital Signs and Narrative: Vital Signs: Last Vital Signs Temp 98.8 F 12/16/20 16:37 Pulse 110 H 12/16/20 16:37 Resp 22 H 12/16/20 16:37 BP 182/98 H 12/16/20 16:37 Pulse Ox 87 L 12/16/20 17:39 Oxygen Flow Rate 3 12/16/20 16:37 Body Mass Index 24.0 General: dyspneic, sob, acccessory muscles HEENT: atraumatic Neck: normal to visual inspection CVS: S1, S2, RRR Resp: diminished, wheezes Chest: non tender GI: soft, non tender, non distended : no CVA tenderness Skin: no rashes Extremities: no edema Neuro: Oriented X3, grossly intact Psych: cooperative Results Labs CBC and Chem 7: 12/16/20 16:52 12/16/20 16:52 Labs: Laboratory Results - last 24 hr 12/16/20 12/16/20 12/16/20 16:48 16:52 16:52 MCV 94.9 MCH 30.3 MCHC 32.0 RDW 15.5 Plt Count 330 MPV 8.4 L Immature Gran % (Auto) 1.4 H Neut % (Auto) 75.6 H Lymph % (Auto) 14.4 L [place] % (Auto) 8.4 Eos % (Auto) 0.1 Baso % (Auto) 0.1 Lymph # (Auto) 2.1 [place] # (Auto) 1.2 Eos # (Auto) 0.0 Baso # (Auto) 0.0 Abs Immat Gran (auto) 0.20 H Absolute Neuts (auto) 10.8 H Absolute Nucleated RBC 0.000 Nucleated RBC % (auto) 0.0 VBG pH VBG pCO2 VBG pO2 VBG HCO3 VBG O2 Saturation VBG Base Excess Anion Gap 12 Estim Creat Clear Calc 47.3 Estimated GFR 59 Random Glucose 100 Calcium 9.2 Total Bilirubin < 0.2 AST 18 ALT 22 Alkaline Phosphatase 97 Troponin I High Sens B-Natriuretic Peptide Total Protein 7.5 Albumin 4.2 Lipase 12 COVID-19 ([facility]) Negative COVID-19 Clin Com See Note 12/16/20 12/16/20 16:52 16:52 MCV MCH MCHC RDW Plt Count MPV Immature Gran % (Auto) Neut % (Auto) Lymph % (Auto) [place] % (Auto) Eos % (Auto) Baso % (Auto) Lymph # (Auto) [place] # (Auto) Eos # (Auto) Baso # (Auto) Abs Immat Gran (auto) Absolute Neuts (auto) Absolute Nucleated RBC Nucleated RBC % (auto) VBG pH 7.33 VBG pCO2 50 VBG pO2 68 VBG HCO3 27 H VBG O2 Saturation 93.0 VBG Base Excess 0.6 Anion Gap Estim Creat Clear Calc Estimated GFR Random Glucose Calcium Total Bilirubin AST ALT Alkaline Phosphatase Troponin I High Sens 11.2 D B-Natriuretic Peptide 190 H Total Protein Albumin Lipase COVID-19 ([facility]) COVID-19 Clin Com Assessment and Plan (1) COPD (chronic obstructive pulmonary disease) with emphysema: Qualifiers: Emphysema type: unspecified Qualified Code(s): J43.9 - Emphysema, unspecified Status: Acute 70F presented with sob Acute on chronic hypoxic respiratory failure secondary to COPD exacerbation Steroids, bronchodilators, inhaled steroids/Laba, O2 support for goal saturation 91 Opioid dependence Suboxone Nicotine dependence Nicotine replacement therapy Hypertension Amlodipine Anxiety Ativan p.r.n. Quality Stroke Does the patient have a stroke diagnosis?: No VTE Prior VTE?: No VTE Risk Level:: Medical - moderate - high VTE Device Contraindication: Treatment Not Indicated VTE Drug Contraindication: N/A - Med Ordered
--- NOTE | 2020-12-16 18:20 | PC.NURSE ---
Attempted to give report. Marycarmen kay unavailable.
[2020-12-16 19:30] VITALS: BP 150/70; PULSE 110; RESP 20; TEMP 36.8; O2SAT 92
[2020-12-16 19:34] VITALS: BP 150/70; PULSE 110; RESP 20; TEMP 36.8; O2SAT 92
[2020-12-16] MEDS: guaiFENesin DM 600/30 1 TAB TAB.ER.12H 2 TAB PO (20:31)
[2020-12-16] MEDS: LORazepam 0.5 MG TABLET PO (20:31)
[2020-12-16 23:37] VITALS: BP 130/61; PULSE 97; RESP 20; TEMP 36.9; O2SAT 92
[2020-12-17] VITALS (8 sets, daily range): BP systolic 133–168; BP diastolic 67–92; PULSE 97–113; RESP 15–20; TEMP 36.3–36.9; O2SAT 88–97
[2020-12-17] MEDS: 0.9 % Sodium Chloride Flush 3 ML SYRINGE IVFLUSH ×4 (00:31→19:57)
[2020-12-17] MEDS: methylPREDNISolone Sod Succ 125 MG/2 ML VIAL 60 MG IVPUSH ×2 (06:03→17:04)
[2020-12-17 06:13] LABS: Hematocrit 39.5 % (37-47); Hemoglobin 12.3 g/dl (12.0-16.0); Mean Corpuscular HGB Conc 31.1 g/dl (31.0-35.0); Mean Corpuscular Hemoglobin 29.6 pg (27.0-33.0); Mean Platelet Volume 8.6 fL (9.4-12.3); Platelet Count 298 X10*3/uL (160-400); Red Blood Count 4.16 X10*6/uL (4.20-5.50); Red Cell Distribution Width 15.4 % (11.0-16.0); White Blood Count 11.4 X10*3/uL (4.8-10.8)
[2020-12-17 06:36] LABS: Anion Gap 10 (12-20); Blood Urea Nitrogen 22 mg/dL (9-16); Calcium 8.9 mg/dL (8.4-10.2); Carbon Dioxide 31 mmol/L (22-29); Chloride 104 mmol/L (96-108); Estimated Glomerular Filt Rate > 60; Glucose Random 116 mg/dL (60-115); Potassium 4.8 mmol/L (3.3-5.1); Sodium 140 mmol/L (135-145)
[2020-12-17] MEDS: Fluticasone/Vilanterol 200/25 BLST.W.DEV 1 PUFF INHALE (07:31)
[2020-12-17] MEDS: Albuterol/Iprat 2.5/0.5MG 3 ML AMPUL.NEB INHALE (07:37)
[2020-12-17] MEDS: amLODIPine Besylate 5 MG TABLET PO (08:43)
[2020-12-17] MEDS: guaiFENesin DM 600/30 1 TAB TAB.ER.12H 2 TAB PO ×2 (08:43→19:57)
[2020-12-17] MEDS: Buprenorphine/Naloxone 8/2 mg FILM 2 FILM SUBLINGUAL (08:43)
[2020-12-17] MEDS: Rivaroxaban 10 MG TABLET PO (08:43)
[2020-12-17] MEDS: Nicotine 14 MG PATCH.TD24 TRANSDERMA (08:43)
--- NOTE | 2020-12-17 11:05 | MHC.CM.PN ---
PT KNOWN TO T/W FROM RECENT ADMISSION. PT LIVES IN THE BASEMENT APARTMENT BELOW HER SON AND HIS ROOM MATE. PT WAS DISCHARGED RECENTLY WITH [facility] FOR HOME OXYGEN, PT REPORTS THE OXYGEN WAS NEVER DELIVERED. AFTER DISCUSSION, IT APPEARS PT DID NOT CALL TO HAVE THE OXYGEN/SUPPLIES DELIVERED FOLLOWING HER DC. PT ALSO REPORTS THE VISITING NURSES HAVE NOT YET SEEN HER SHE HAD TO CANCEL WHEN THEY ATTEMPTED TO SCHEDULE AN INTAKE TIME. PT WILL REQUIRE INSTRUCTIONS FROM RT REGARDING HOME O2 DELIVERY, CM WILL ALSO LEAVE INSTRUCTIONS ON PTS SONS VM PRIOR TO HER DISCHARGE. OF NOTE, STR WAS RECOMMENDED DURING PTS PREVIOUS ADMISSION, HOWEVER SHE REFUSED. CM WILL REVISIT THIS TOPIC WITH PT WHEN SHE IS FEELING WELL ENOUGH, SHE REPORTS HAVING A SEVERE HEADACHE AT THIS TIME. IMM WAS DELIVERED CURRENT DC PLAN IS HOME WITH [facility] O2 VS STR PT WILL REQUIRE CHAIR VAN VS BLS TRANSPORT
--- NOTE | 2020-12-17 12:38 | HO.PM.IMPN ---
Subjective Subjective Date of Service: 12/17/20 Interval History: still tight/sob, but improved Cardiovascular Cardiovascular: Reports no additional cardiovascular complaints Gastrointestinal Gastrointestinal: Reports no additional gastrointestinal complaints Physical Exam Vital Signs: Vital Signs: Last Vital Signs Temp 97.6 F 12/17/20 11:24 Pulse 110 H 12/17/20 11:24 Resp 15 12/17/20 08:00 BP 152/70 H 12/17/20 11:24 Pulse Ox 93 12/17/20 11:24 Oxygen Flow Rate 3 12/16/20 16:37 Body Mass Index 24.0 General: AO X 3, much more comfortable than yesterday, still dyspneic on minimal exertion Resp: diminished, wheezes CVS: S1,S2,RRR GI: soft, non tender, non distended Neuro: motor grossly intact Psych: appropriate affect Objective Data Current Medications Generic Name Dose Route Start Last Admin Trade Name Freq PRN Reason Stop Dose Admin Albuterol/Ipratropium 3 ml 12/16/20 18:08 12/17/20 07:37 Albuterol/Iprat 2.5/0.5mg 3 Ml Ampul.Neb INHALE 3 ml Q4H PRN Administration sob Amlodipine Besylate 5 mg 12/17/20 09:00 12/17/20 08:43 Amlodipine Besylate 5 Mg Tablet PO 5 mg DAILY ANDREW Administration Protocol Buprenorphine/Naloxone 2 film 12/17/20 09:00 12/17/20 08:43 Buprenorphine/Naloxone 8/2 Mg Film SUBLINGUAL 2 film DAILY ANDREW Administration Fluticasone/Vilanterol 1 puff 12/17/20 08:00 12/17/20 07:31 Fluticasone/Vilanterol 200/25 Blst.W.Dev INHALE 1 puff RDAILY ANDREW Administration Guaifenesin/Dextromethorphan 2 tab 12/16/20 21:00 12/17/20 08:43 Guaifenesin Dm 600/30 1 Tab Tab.Er.12h PO 2 tab BID ANDREW Administration Lorazepam 0.5 mg 12/16/20 18:08 12/16/20 20:31 Lorazepam 0.5 Mg Tablet PO 0.5 mg Q6H PRN Administration anxiety Methylprednisolone Sodium Succinate 60 mg 12/17/20 06:00 12/17/20 06:03 Methylprednisolone Sod Succ 125 Mg/2 Ml Vial IVPUSH 60 mg Q12H ANDREW Administration Nicotine 14 mg 12/17/20 09:00 12/17/20 08:43 Nicotine 14 Mg Patch.Td24 TRANSDERMA 14 mg DAILY ANDREW Administration Rivaroxaban 10 mg 12/17/20 09:00 12/17/20 08:43 Rivaroxaban 10 Mg Tablet PO 10 mg DAILY ANDREW Administration Sodium Chloride 3 ml 12/17/20 00:00 12/17/20 07:54 0.9 % Sodium Chloride Flush 3 Ml Syringe IVFLUSH 3 ml QSHIFT ANDREW Administration Labs CBC & Chem 7: 12/17/20 05:34 12/17/20 05:34 Labs: Laboratory Results - last 24 hr 12/16/20 12/16/20 12/16/20 16:48 16:52 16:52 WBC 14.3 H RBC 4.32 Hgb 13.1 Hct 41.0 MCV 94.9 MCH 30.3 MCHC 32.0 RDW 15.5 Plt Count 330 MPV 8.4 L Immature Gran % (Auto) 1.4 H Neut % (Auto) 75.6 H Lymph % (Auto) 14.4 L [place] % (Auto) 8.4 Eos % (Auto) 0.1 Baso % (Auto) 0.1 Lymph # (Auto) 2.1 [place] # (Auto) 1.2 Eos # (Auto) 0.0 Baso # (Auto) 0.0 Abs Immat Gran (auto) 0.20 H Absolute Neuts (auto) 10.8 H Absolute Nucleated RBC 0.000 Nucleated RBC % (auto) 0.0 VBG pH VBG pCO2 VBG pO2 VBG HCO3 VBG O2 Saturation VBG Base Excess Sodium 141 Potassium 4.1 Chloride 104 Carbon Dioxide 29 Anion Gap 12 BUN 20 H D Creatinine 0.94 Estim Creat Clear Calc 47.3 Estimated GFR 59 Random Glucose 100 Calcium 9.2 Total Bilirubin < 0.2 AST 18 ALT 22 Alkaline Phosphatase 97 Troponin I High Sens B-Natriuretic Peptide Total Protein 7.5 Albumin 4.2 Lipase 12 COVID-19 ([facility]) Negative COVID-19 Clin Com See Note 12/16/20 12/16/20 12/17/20 16:52 16:52 05:34 WBC 11.4 H RBC 4.16 L Hgb 12.3 Hct 39.5 MCV 95.0 MCH 29.6 MCHC 31.1 RDW 15.4 Plt Count 298 MPV 8.6 L Immature Gran % (Auto) Neut % (Auto) Lymph % (Auto) [place] % (Auto) Eos % (Auto) Baso % (Auto) Lymph # (Auto) [place] # (Auto) Eos # (Auto) Baso # (Auto) Abs Immat Gran (auto) Absolute Neuts (auto) Absolute Nucleated RBC 0.000 Nucleated RBC % (auto) 0.0 VBG pH 7.33 VBG pCO2 50 VBG pO2 68 VBG HCO3 27 H VBG O2 Saturation 93.0 VBG Base Excess 0.6 Sodium Potassium Chloride Carbon Dioxide Anion Gap BUN Creatinine Estim Creat Clear Calc Estimated GFR Random Glucose Calcium Total Bilirubin AST ALT Alkaline Phosphatase Troponin I High Sens 11.2 D B-Natriuretic Peptide 190 H Total Protein Albumin Lipase COVID-19 ([facility]) COVIDAltobridge 12/17/20 05:34 WBC RBC Hgb Hct MCV MCH MCHC RDW Plt Count MPV Immature Gran % (Auto) Neut % (Auto) Lymph % (Auto) [place] % (Auto) Eos % (Auto) Baso % (Auto) Lymph # (Auto) [place] # (Auto) Eos # (Auto) Baso # (Auto) Abs Immat Gran (auto) Absolute Neuts (auto) Absolute Nucleated RBC Nucleated RBC % (auto) VBG pH VBG pCO2 VBG pO2 VBG HCO3 VBG O2 Saturation VBG Base Excess Sodium 140 Potassium 4.8 Chloride 104 Carbon Dioxide 31 H Anion Gap 10 L BUN 22 H Creatinine 0.84 Estim Creat Clear Calc 53.0 Estimated GFR > 60 Random Glucose 116 H Calcium 8.9 Total Bilirubin AST ALT Alkaline Phosphatase Troponin I High Sens B-Natriuretic Peptide Total Protein Albumin Lipase COVID-19 ([facility]) COVID-19 Sharypic Quality Stroke Does the patient have a stroke diagnosis?: No VTE Prior VTE?: No VTE Risk Level:: Medical - moderate - high VTE Device Contraindication: Treatment Not Indicated VTE Drug Contraindication: N/A - Med Ordered Assessment and Plan (1) COPD (chronic obstructive pulmonary disease) with emphysema: Status: Acute Assessment and Plan: 70F presented with sob Acute on chronic hypoxic respiratory failure secondary to COPD exacerbation continue Steroids, bronchodilators, inhaled steroids/Laba, O2 support for goal saturation 91 if continues to improve will plan on discharge in 24-48hrs suspect ZAHIDA outpatient sleep study Opioid dependence Suboxone Nicotine dependence Nicotine replacement therapy Hypertension Amlodipine Anxiety Ativan p.r.n.
[2020-12-17] MEDS: Acetaminophen 325 MG TABLET 650 MG PO (16:04)
[2020-12-18] VITALS (7 sets, daily range): BP systolic 135–176; BP diastolic 63–84; PULSE 93–106; RESP 18–20; TEMP 36.2–37.1; O2SAT 91–94
[2020-12-18] MEDS: methylPREDNISolone Sod Succ 125 MG/2 ML VIAL 60 MG IVPUSH ×2 (05:15→17:51)
[2020-12-18] MEDS: Acetaminophen 325 MG TABLET 650 MG PO ×2 (05:17→17:52)
[2020-12-18] MEDS: Fluticasone/Vilanterol 200/25 BLST.W.DEV 1 PUFF INHALE (07:44)
[2020-12-18] MEDS: Buprenorphine/Naloxone 8/2 mg FILM 2 FILM SUBLINGUAL (09:05)
[2020-12-18] MEDS: amLODIPine Besylate 5 MG TABLET PO (09:05)
[2020-12-18] MEDS: Rivaroxaban 10 MG TABLET PO (09:05)
[2020-12-18] MEDS: guaiFENesin DM 600/30 1 TAB TAB.ER.12H 2 TAB PO ×2 (09:05→21:09)
[2020-12-18] MEDS: 0.9 % Sodium Chloride Flush 3 ML SYRINGE IVFLUSH ×3 (09:05→21:09)
[2020-12-18] MEDS: Nicotine 14 MG PATCH.TD24 TRANSDERMA (09:06)
--- NOTE | 2020-12-18 10:44 | P.PNIM_ITS ---
Subjective Subjective Date of Service: 12/18/20 Interval History: sob present but improving daily Cardiovascular Cardiovascular: Reports no additional cardiovascular complaints Gastrointestinal Gastrointestinal: Reports no additional gastrointestinal complaints Physical Exam Vital Signs: Vital Signs: Last Vital Signs Temp 97.2 F 12/18/20 07:50 Pulse 97 12/18/20 07:50 Resp 19 12/18/20 07:50 BP 176/84 H 12/18/20 07:50 Pulse Ox 91 L 12/18/20 07:50 Oxygen Flow Rate 3 12/16/20 16:37 Body Mass Index 24.0 General: AO X 3, still dyspneic, occasionally using accessory muscles Resp: diminished, wheezes CVS: S1,S2,RRR GI: soft, non tender, non distended Neuro: motor grossly intact Psych: appropriate affect Objective Data Current Medications Generic Name Dose Route Start Last Admin Trade Name Freq PRN Reason Stop Dose Admin Acetaminophen 650 mg 12/17/20 15:37 12/18/20 05:17 Acetaminophen 325 Mg Tablet PO 650 mg Q6H PRN Administration pain Albuterol/Ipratropium 3 ml 12/16/20 18:08 12/17/20 07:37 Albuterol/Iprat 2.5/0.5mg 3 Ml Ampul.Neb INHALE 3 ml Q4H PRN Administration sob Amlodipine Besylate 5 mg 12/17/20 09:00 12/18/20 09:05 Amlodipine Besylate 5 Mg Tablet PO 5 mg DAILY ANDREW Administration Protocol Buprenorphine/Naloxone 2 film 12/17/20 09:00 12/18/20 09:05 Buprenorphine/Naloxone 8/2 Mg Film SUBLINGUAL 2 film DAILY ANDREW Administration Fluticasone/Vilanterol 1 puff 12/17/20 08:00 12/18/20 07:44 Fluticasone/Vilanterol 200/25 Blst.W.Dev INHALE 1 puff RDAILY ANDREW Administration Guaifenesin/Dextromethorphan 2 tab 12/16/20 21:00 12/18/20 09:05 Guaifenesin Dm 600/30 1 Tab Tab.Er.12h PO 2 tab BID ANDREW Administration Lorazepam 0.5 mg 12/16/20 18:08 12/16/20 20:31 Lorazepam 0.5 Mg Tablet PO 0.5 mg Q6H PRN Administration anxiety Methylprednisolone Sodium Succinate 60 mg 12/17/20 06:00 12/18/20 05:15 Methylprednisolone Sod Succ 125 Mg/2 Ml Vial IVPUSH 60 mg Q12H ANDREW Administration Nicotine 14 mg 12/17/20 09:00 12/18/20 09:06 Nicotine 14 Mg Patch.Td24 TRANSDERMA 14 mg DAILY ANDREW Administration Rivaroxaban 10 mg 12/17/20 09:00 12/18/20 09:05 Rivaroxaban 10 Mg Tablet PO 10 mg DAILY ANDREW Administration Sodium Chloride 3 ml 12/17/20 00:00 12/18/20 09:05 0.9 % Sodium Chloride Flush 3 Ml Syringe IVFLUSH 3 ml QSHIFT ANDREW Administration Labs CBC & Chem 7: 12/17/20 05:34 12/17/20 05:34 Quality Stroke Does the patient have a stroke diagnosis?: No VTE Prior VTE?: No VTE Risk Level:: Medical - moderate - high VTE Device Contraindication: Treatment Not Indicated VTE Drug Contraindication: N/A - Med Ordered Assessment and Plan (1) COPD (chronic obstructive pulmonary disease) with emphysema: Status: Acute Assessment and Plan: 70F presented with sob Acute on chronic hypoxic respiratory failure secondary to COPD exacerbation continue Steroids, bronchodilators, inhaled steroids/Laba, O2 support for goal s aturation 91 if continues to improve will plan on discharge tomorrow suspect ZAHIDA outpatient sleep study Opioid dependence Suboxone Nicotine dependence Nicotine replacement therapy Hypertension Amlodipine Anxiety Ativan p.r.n.
--- NOTE | 2020-12-18 11:07 | PC.NURSE ---
1100 Heart rate increases to 130-[address] Mireles aware. Has commode at bedside. OOB with supervision. Denies chest pain. 02 at 2l via N/C
[2020-12-18] MEDS: LORazepam 0.5 MG TABLET PO (17:52)
[2020-12-19] VITALS (8 sets, daily range): BP systolic 150–170; BP diastolic 66–84; PULSE 85–106; RESP 18–20; TEMP 36.1–36.8; O2SAT 92–96
[2020-12-19] MEDS: LORazepam 0.5 MG TABLET PO ×2 (03:38→21:55)
[2020-12-19] MEDS: Acetaminophen 325 MG TABLET 650 MG PO ×2 (03:38→20:07)
[2020-12-19] MEDS: methylPREDNISolone Sod Succ 125 MG/2 ML VIAL 60 MG IVPUSH ×2 (05:32→17:22)
[2020-12-19] MEDS: Fluticasone/Vilanterol 200/25 BLST.W.DEV 1 PUFF INHALE (07:54)
[2020-12-19] MEDS: amLODIPine Besylate 5 MG TABLET PO (08:11)
[2020-12-19] MEDS: Nicotine 14 MG PATCH.TD24 TRANSDERMA (08:12)
[2020-12-19] MEDS: 0.9 % Sodium Chloride Flush 3 ML SYRINGE IVFLUSH ×3 (08:12→20:13)
[2020-12-19] MEDS: Buprenorphine/Naloxone 8/2 mg FILM 2 FILM SUBLINGUAL (08:12)
[2020-12-19] MEDS: guaiFENesin DM 600/30 1 TAB TAB.ER.12H 2 TAB PO ×2 (08:12→20:06)
[2020-12-19] MEDS: Rivaroxaban 10 MG TABLET PO (08:12)
--- NOTE | 2020-12-19 10:16 | P.PNIM_ITS ---
Subjective Subjective Date of Service: 12/19/20 Interval History: sob improving daily, still sob on minimal exertion Cardiovascular Cardiovascular: Reports no additional cardiovascular complaints Genitourinary Genitourinary: Reports no additional female genitourinary complaints Physical Exam 2 Vital Signs: Vital Signs: Last Vital Signs Temp 97.0 F 12/19/20 07:50 Pulse 85 12/19/20 08:11 Resp 19 12/19/20 07:50 BP 170/84 H 12/19/20 08:11 Pulse Ox 96 12/19/20 07:50 Oxygen Flow Rate 3 12/16/20 16:37 Body Mass Index 24.0 General: AO X 3, still dyspneic, occasionally using accessory muscles Resp: diminished, wheezes CVS: S1,S2,RRR GI: soft, non tender, non distended Neuro: motor grossly intact Psych: appropriate affect Objective Data Current Medications Generic Name Dose Route Start Last Admin Trade Name Freq PRN Reason Stop Dose Admin Acetaminophen 650 mg 12/17/20 15:37 12/19/20 03:38 Acetaminophen 325 Mg Tablet PO 650 mg Q6H PRN Administration pain Albuterol/Ipratropium 3 ml 12/16/20 18:08 12/17/20 07:37 Albuterol/Iprat 2.5/0.5mg 3 Ml Ampul.Neb INHALE 3 ml Q4H PRN Administration sob Amlodipine Besylate 5 mg 12/17/20 09:00 12/19/20 08:11 Amlodipine Besylate 5 Mg Tablet PO 5 mg DAILY ANDREW Administration Protocol Buprenorphine/Naloxone 2 film 12/17/20 09:00 12/19/20 08:12 Buprenorphine/Naloxone 8/2 Mg Film SUBLINGUAL 2 film DAILY ANDREW Administration Fluticasone/Vilanterol 1 puff 12/17/20 08:00 12/19/20 07:54 Fluticasone/Vilanterol 200/25 Blst.W.Dev INHALE 1 puff RDAILY ANDREW Administration Guaifenesin/Dextromethorphan 2 tab 12/16/20 21:00 12/19/20 08:12 Guaifenesin Dm 600/30 1 Tab Tab.Er.12h PO 2 tab BID ANDREW Administration Lorazepam 0.5 mg 12/16/20 18:08 12/19/20 03:38 Lorazepam 0.5 Mg Tablet PO 0.5 mg Q6H PRN Administration anxiety Methylprednisolone Sodium Succinate 60 mg 12/17/20 06:00 12/19/20 05:32 Methylprednisolone Sod Succ 125 Mg/2 Ml Vial IVPUSH 60 mg Q12H ANDREW Administration Nicotine 14 mg 12/17/20 09:00 12/19/20 08:12 Nicotine 14 Mg Patch.Td24 TRANSDERMA 14 mg DAILY ANDREW Administration Rivaroxaban 10 mg 12/17/20 09:00 12/19/20 08:12 Rivaroxaban 10 Mg Tablet PO 10 mg DAILY ANDREW Administration Sodium Chloride 3 ml 12/17/20 00:00 12/19/20 08:12 0.9 % Sodium Chloride Flush 3 Ml Syringe IVFLUSH 3 ml QSHIFT ANDREW Administration Labs CBC & Chem 7: 12/17/20 05:34 12/17/20 05:34 Quality Stroke Does the patient have a stroke diagnosis?: No VTE Prior VTE?: No VTE Risk Level:: Medical - moderate - high VTE Device Contraindication: Treatment Not Indicated VTE Drug Contraindication: N/A - Med Ordered Assessment and Plan (1) COPD (chronic obstructive pulmonary disease) with emphysema: Status: Acute Assessment and Plan: 70F presented with sob Acute on chronic hypoxic respiratory failure secondary to COPD exacerbation continue Steroids, bronchodilators, inhaled steroids/Laba, O2 support for goal saturation 91 sob improving, but still very dyspneic on exertion, maybe would benefit from rehab, will get PT eval suspect ZAHIDA outpatient sleep study Opioid dependence Suboxone Nicotine dependence Nicotine replacement therapy Hypertension Amlodipine Anxiety Ativan p.r.n.
--- NOTE | 2020-12-19 14:34 | MHC.CM.PN ---
CM met with Patient regarding dc planning.Patient is reluctantly agreeable to SNF/STR referrals being made. Patient's SNF choices will be limited r/t her Suboxone. Referrals have been made/[facility] to [facility]. CM will follow.
[2020-12-20] VITALS (10 sets, daily range): BP systolic 113–171; BP diastolic 57–90; PULSE 87–112; RESP 18–20; TEMP 36.1–36.7; O2SAT 90–98
[2020-12-20] MEDS: methylPREDNISolone Sod Succ 125 MG/2 ML VIAL 60 MG IVPUSH ×2 (05:19→16:58)
[2020-12-20] MEDS: LORazepam 0.5 MG TABLET PO (05:39)
[2020-12-20] MEDS: Acetaminophen 325 MG TABLET 650 MG PO (05:39)
[2020-12-20] MEDS: amLODIPine Besylate 5 MG TABLET PO (05:40)
[2020-12-20] MEDS: Fluticasone/Vilanterol 200/25 BLST.W.DEV 1 PUFF INHALE (07:27)
[2020-12-20] MEDS: Nicotine 14 MG PATCH.TD24 TRANSDERMA (08:40)
[2020-12-20] MEDS: Rivaroxaban 10 MG TABLET PO (08:40)
[2020-12-20] MEDS: Buprenorphine/Naloxone 8/2 mg FILM 2 FILM SUBLINGUAL (08:40)
[2020-12-20] MEDS: guaiFENesin DM 600/30 1 TAB TAB.ER.12H 2 TAB PO ×2 (08:40→20:32)
[2020-12-20] MEDS: 0.9 % Sodium Chloride Flush 3 ML SYRINGE IVFLUSH ×3 (08:40→20:33)
--- NOTE | 2020-12-20 11:48 | MHC.CM.PN ---
[facility] is OON with Patient's insurance; because there have been 5 SNF denials, [facility] will attempt to get OON auth.CM will follow.
--- NOTE | 2020-12-20 14:31 | HO.PM.IMPN ---
Subjective Subjective Date of Service: 12/20/20 Interval History: sob Cardiovascular Cardiovascular: Reports no additional cardiovascular complaints Respiratory Respiratory: Reports no additional respiratory complaints Physical Exam Vital Signs: Vital Signs: Last Vital Signs Temp 97.8 F 12/20/20 11:06 Pulse 103 H 12/20/20 11:06 Resp 18 12/20/20 11:06 BP 142/64 H 12/20/20 11:06 Pulse Ox 95 12/20/20 11:06 Oxygen Flow Rate 3 12/16/20 16:37 Body Mass Index 24.0 General: AO X 3, no acute distress Resp: diminished, wheeze CVS: S1,S2,RRR GI: soft, non tender, non distended Neuro: motor grossly intact Psych: appropriate affect Objective Data Current Medications Generic Name Dose Route Start Last Admin Trade Name Freq PRN Reason Stop Dose Admin Acetaminophen 650 mg 12/17/20 15:37 12/20/20 05:39 Acetaminophen 325 Mg Tablet PO 650 mg Q6H PRN Administration pain Albuterol/Ipratropium 3 ml 12/16/20 18:08 12/17/20 07:37 Albuterol/Iprat 2.5/0.5mg 3 Ml Ampul.Neb INHALE 3 ml Q4H PRN Administration sob Amlodipine Besylate 5 mg 12/17/20 09:00 12/20/20 05:40 Amlodipine Besylate 5 Mg Tablet PO 5 mg DAILY ANDREW Administration Protocol Buprenorphine/Naloxone 2 film 12/17/20 09:00 12/20/20 08:40 Buprenorphine/Naloxone 8/2 Mg Film SUBLINGUAL 2 film DAILY ANDREW Administration Fluticasone/Vilanterol 1 puff 12/17/20 08:00 12/20/20 07:27 Fluticasone/Vilanterol 200/25 Blst.W.Dev INHALE 1 puff RDAILY ANDREW Administration Guaifenesin/Dextromethorphan 2 tab 12/16/20 21:00 12/20/20 08:40 Guaifenesin Dm 600/30 1 Tab Tab.Er.12h PO 2 tab BID ANDREW Administration Lorazepam 0.5 mg 12/16/20 18:08 12/20/20 05:39 Lorazepam 0.5 Mg Tablet PO 0.5 mg Q6H PRN Administration anxiety Methylprednisolone Sodium Succinate 60 mg 12/17/20 06:00 12/20/20 05:19 Methylprednisolone Sod Succ 125 Mg/2 Ml Vial IVPUSH 60 mg Q12H ANDREW Administration Nicotine 14 mg 12/17/20 09:00 12/20/20 08:40 Nicotine 14 Mg Patch.Td24 TRANSDERMA 14 mg DAILY ANDREW Administration Rivaroxaban 10 mg 12/17/20 09:00 12/20/20 08:40 Rivaroxaban 10 Mg Tablet PO 10 mg DAILY ANDREW Administration Sodium Chloride 3 ml 12/17/20 00:00 12/20/20 08:40 0.9 % Sodium Chloride Flush 3 Ml Syringe IVFLUSH 3 ml QSHIFT ANDREW Administration Labs CBC & Chem 7: 12/17/20 05:34 12/17/20 05:34 Quality Stroke Does the patient have a stroke diagnosis?: No VTE Prior VTE?: No VTE Risk Level:: Medical - moderate - high VTE Device Contraindication: Treatment Not Indicated VTE Drug Contraindication: N/A - Med Ordered Assessment and Plan (1) COPD (chronic obstructive pulmonary disease) with emphysema: Status: Acute Assessment and Plan: 70F presented with sob Acute on chronic hypoxic respiratory failure secondary to COPD exacerbation continue Steroids, bronchodilators, inhaled steroids/Laba, O2 support for goal saturation 91 sob improving, plan for STR once available suspect ZAHIDA outpatient sleep study Opioid dependence Suboxone Nicotine dependence Nicotine replacement therapy Hypertension Amlodipine Anxiety Ativan p.r.n.
--- NOTE | 2020-12-20 15:52 | PC.NURSE ---
Skin Assessment completed today. No skin issues found, skin dry and intact.
[2020-12-21] MEDS: Acetaminophen 325 MG TABLET 650 MG PO (03:08)
[2020-12-21 03:43] VITALS: BP 144/68; PULSE 101; RESP 20; TEMP 36.4; O2SAT 92
[2020-12-21] MEDS: methylPREDNISolone Sod Succ 125 MG/2 ML VIAL 60 MG IVPUSH (05:47)
[2020-12-21] MEDS: 0.9 % Sodium Chloride Flush 3 ML SYRINGE IVFLUSH (07:29)
[2020-12-21 07:33] VITALS: BP 178/82; PULSE 96; RESP 21; TEMP 36.4; O2SAT 97
[2020-12-21] MEDS: Fluticasone/Vilanterol 200/25 BLST.W.DEV 1 PUFF INHALE (07:39)
[2020-12-21 07:41] VITALS: PULSE 96; O2SAT 97
[2020-12-21] MEDS: Buprenorphine/Naloxone 8/2 mg FILM 2 FILM SUBLINGUAL (07:41)
[2020-12-21] MEDS: Nicotine 14 MG PATCH.TD24 TRANSDERMA (07:43)
[2020-12-21] MEDS: Rivaroxaban 10 MG TABLET PO (07:48)
[2020-12-21] MEDS: guaiFENesin DM 600/30 1 TAB TAB.ER.12H 2 TAB PO (07:54)
[2020-12-21 07:55] VITALS: BP 178/82
[2020-12-21] MEDS: amLODIPine Besylate 5 MG TABLET PO (07:55)
[2020-12-21 10:56] VITALS: BP 167/75; PULSE 106; RESP 20; TEMP 35.9; O2SAT 92
--- NOTE | 2020-12-21 11:49 | MHC.CM.PN ---
Per ROUNDS discussion, Patient will be medically cleared for dc to SNF/STR today. Patient will dc to [facility] today at 4:30 PM, via [facility]. IMM addressed with Patient at bedside; IMM explained and Patient accepted form by she preferred not to sign it (original given to Patient and a copy has been placed on the chart). Patient is in agreement with this dc plan and she would like to speak with her Son before she is dc. CM spoke with Son/Adriel @ [phone], who is very pleased with the dc plan and will visit Patient here prior to dc.
--- NOTE | 2020-12-21 12:48 | P.DS_ITS ---
DS: Providers Provider Date of Service: 12/21/20 Date of admission: 12/16/20 18:05 Primary care physician: Unknown Physician DS: Diagnosis Discharge Diagnosis (1) COPD (chronic obstructive pulmonary disease) with emphysema: Status: Acute (2) Hypoxia: Status: Acute DS: Medications Discharge Medications Home Medications: Home Medications Medication Instructions Recorded Confirmed albuterol sulfate 90 mcg/actuation 1 inh INHALATION Q4H g 09/09/20 12/16/20 aerosol inhaler Advil PM 400 mg BEDTIME 11/26/20 12/16/20 Previous Rx's Medication Instructions Recorded nebulizer and compressor #1 ea 04/11/20 buprenorphine 8 mg-naloxone 2 mg 2 film SUBLINGUAL DAILY 7 Days #14 11/23/20 sublingual film ea Breo Ellipta 1 puff INHALATION RDAILY 30 Days 12/07/20 ea Mucinex DM 2 tab PO BID 10 Days #40 tab 12/07/20 Spiriva with HandiHaler 18 mcg INHALATION RDAILY 30 Days 12/07/20 #30 cap amlodipine 5 mg PO DAILY 30 Days #30 tab 12/07/20 nicotine 14 mg TRANSDERMAL DAILY 30 Days ea 12/07/20 prednisone See Taper PO DAILY #30 tab 12/07/20 prednisone 40 mg PO DAILY #8 tab 12/21/20 DS: Summary Hospital Course Hospital Course: Admission note HPI 70F active smoker with COPD presented shortness of breath. Patient was recently discharged after prolonged hospitalization for COPD exacerbation on 12/09/2020 with plan for home oxygen. However, it seems like patient did not have oxygen at home, unclear why. Patient now stating that she has had 1 day of worsening shortness of breath. She denies fever, chills. Her cough has persisted since her previous admission. In ED noted to be hypoxic 87 on room air. Chest x-ray unremarkbale Hospital course Patient was treated for acute hypoxic respiratory failure secondary to COPD exacerbation with IV steroids, bronchodilator nebulizers and oxygen supplement with improvement in her overall condition and decrease her oxygen needs to 3 L to maintain her saturation in the 90s. She was placed on nicotine patches for history of nicotine dependence. Advised to quit smoking totally. There is suspicion of ZAHIDA. Patient advised to follow-up as outpatient for sleep study. Time Spent with Patient Time attestation: Total time spent providing and/or coordinating discharge services: Discharge coordination time: Greater than 30 minutes Quality: Stroke Does the patient have a stroke diagnosis?: No Physical Exam Vital Signs: Vital Signs: Last Vital Signs Temp 96.7 F L 12/21/20 10:56 Pulse 106 H 12/21/20 10:56 Resp 20 12/21/20 10:56 BP 167/75 H 12/21/20 10:56 Pulse Ox 92 12/21/20 10:56 Oxygen Flow Rate 3 12/16/20 16:37 Body Mass Index 24.0 Const: Other: Constitutional : Alert, oriented, not in distress Neck : Normal inspection, Supple Cardiovascular : RRR, S1 S2, trace lower extremity edema Respiratory : Decreased bilateral air entry, no crackles, trace bilateral expiratory wheezes Gastrointestinal: soft, lax, Normal bowel sounds, Non tender Skin : Warm/Dry, No rash Neurological : Alert & oriented x3, No focal deficit Discharge Plan Discharge Patient Disposition: [facility] Discharge Diagnosis: COPD exacerbation [facility] Physician,Unknown [Primary Care Provider] - 1 Week Discharge Medications: New prednisone 20 mg tablet 40 mg PO DAILY Qty: 8 RF: 0 Continued albuterol sulfate [ProAir HFA] 90 mcg/actuation HFA aerosol inhaler 1 inh inhalation Q4H RF: 0 (DME) nebulizer and compressor Device See Rx Instructions .ROUTE .MEDSUPPLY Qty: 1 RF: 0 Advil PM 400 mg BEDTIME RF: 0 nicotine 14 mg/24 hr Patch 24 Hour 14 mg transdermal DAILY 30 Days RF: 0 amlodipine 5 mg Tablet 5 mg PO DAILY 30 Days Qty: 30 RF: 0 Mucinex DM 30-600 mg Tablet Extended Release 12 Hr 2 tab PO BID 10 Days Qty: 40 RF: 0 Spiriva with HandiHaler 18 mcg Capsule, W/Inhalation Device 18 mcg inhalation RDAILY 30 Days Qty: 30 RF: 0 Breo Ellipta 200-25 mcg/dose Blister With Device 1 puff inhalation RDAILY 30 Days RF: 0 prednisone 10 mg tablet See Taper mg PO DAILY Qty: 30 RF: 0 buprenorphine-naloxone [Suboxone] 8-2 mg film 2 film sublingual DAILY 7 Days Qty: 14 RF: 1 Discontinued azithromycin 500 mg Tablet 500 mg PO Q24H Qty: 3 RF: 0 Discharge Orders: Discharge Order (Routine); Ordered 12/21/20 Ordered By: Luis Fernando Loera Diet: advance to usual diet Activity on Discharge: As tolerated Stand Alone Forms: Patient Portal Discharge page Care Plan Goals: Read below Health Concerns: Read below Plan of Treatment: You were treated for COPD exacerbation Assessment: avoid smoking Continue prednisone as prescribed
[2020-12-21] MEDS: LORazepam 0.5 MG TABLET PO (12:50)
[2020-12-21 15:16] VITALS: BP 170/80; PULSE 100; RESP 18; TEMP 36.6; O2SAT 93
== END 2020-12-21 17:08 | disposition skilled nursing facility (03) | DRG 191 ==
LOC: HO.ED 18:00 → HO.EDOVER 18:15 → HO.IMC 18:15
PROVIDERS: Admitting Provider Internal Medicine; Emergency Provider Internal Medicine; PCP Internal Medicine; Visit Provider Student in an Organized Health Care Education/Training Program
DX: J43.9 Emphysema, unspecified (principal); F11.20 Opioid dependence, uncomplicated; J96.11 Chronic respiratory failure with hypoxia; G47.33 Obstructive sleep apnea (adult) (pediatric); F17.210 Nicotine dependence, cigarettes, uncomplicated; F41.9 Anxiety disorder, unspecified; I10 Essential (primary) hypertension; Z71.6 Tobacco abuse counseling; Z20.822 Contact with and (suspected) exposure to COVID-19; Z79.899 Other long term (current) drug therapy
CPT/HCPCS: 36415; 71045; 80048; 80053; 83690; 83880; 84484; 85025; 85027; 87635; 93005; 94640; 97110; 97116; 97162; 99285; J2930

== ENCOUNTER 2020-12-21 19:07 | Emergency (ER) | payer MEDICARE, SELFPAY ==
--- NOTE | ~2020-12-21 | XR_ITS ---
EXAMINATION: XR CHEST CLINICAL INFORMATION: Chest tightness. COPD. COMPARISON: None TECHNIQUE: Frontal view of the chest was obtained. 8:08 PM FINDINGS: No significant abnormality is noted involving the heart, lungs, mediastinum, bony thorax or soft tissues. XR/XR chest 1V IMPRESSION: Unremarkable examination.
[2020-12-21 19:17] VITALS: BP 170/92; PULSE 95; RESP 20; TEMP 36.3; O2SAT 96; BMI 23.1
--- NOTE | 2020-12-21 19:52 | ECG_ITS ---
Test Reason : DYSPNEA Blood Pressure : / mmHG Vent. Rate : 099 BPM Atrial Rate : 099 BPM P-R Int : 140 ms QRS Dur : 064 ms QT Int : 330 ms P-R-T Axes : 076 030 071 degrees QTc Int : 423 ms Normal sinus rhythm Biatrial enlargement Abnormal ECG When compared with ECG of 16-DEC-2020 16:56, No significant change was found Referred By: Nga Zapata Electronically Signed By:FARHAN MCKEON MD
--- NOTE | 2020-12-21 19:57 | ED_ITS ---
HPI - General Adult General Chief complaint: Dyspnea Stated complaint: SOB, D/C FROM HERE [facility] Time Seen by Provider: 12/21/20 19:44 Source: patient Mode of arrival: EMS Limitations: no limitations History of Present Illness HPI narrative: patient comes emergency room complaining of shortness of breath. Patient was discharged a few hours ago from this hospital, patient was admitted for COPD. Patient states she has been having Chest tightness since before she was discharged to [facility]. patient denies chest pain. Patient states I do better at the hospital . Patient does not have any new complaints Related Data Home Medications Medication Instructions Recorded Confirmed albuterol sulfate 90 mcg/actuation 1 inh INHALATION Q4H g 09/09/20 12/16/20 aerosol inhaler Advil PM 400 mg BEDTIME 11/26/20 12/16/20 Previous Rx's Medication Instructions Recorded nebulizer and compressor #1 ea 04/11/20 buprenorphine 8 mg-naloxone 2 mg 2 film SUBLINGUAL DAILY 7 Days #14 11/23/20 sublingual film ea Breo Ellipta 1 puff INHALATION RDAILY 30 Days 12/07/20 ea Mucinex DM 2 tab PO BID 10 Days #40 tab 12/07/20 Spiriva with HandiHaler 18 mcg INHALATION RDAILY 30 Days 12/07/20 #30 cap amlodipine 5 mg PO DAILY 30 Days #30 tab 12/07/20 nicotine 14 mg TRANSDERMAL DAILY 30 Days ea 12/07/20 prednisone See Taper PO DAILY #30 tab 12/07/20 ipratropium-albuterol 3 ml INHALATION TID-QID PRN 7 Days 12/21/20 ml prednisone 40 mg PO DAILY #8 tab 12/21/20 Allergies Allergy/AdvReac Type Severity Reaction Status Date / Time No Known Allergies Allergy Verified 12/21/20 19:21 [No Known Allergies*] Review of Systems Review of Systems: Constitutional : No Weight loss, No Fever, No Chills, No Night Sweats, No Fatigue, No Malaise ENT/Mouth : No Hearing loss, No Ear Pain, No Nasal Congestion, No Sinus Pain, No Hoarseness, No sore throat, No Rhinorrhea, No Swallowing Difficulty Eyes: No Eye Pain, No Swelling, No Redness, No Foreign Body, No Discharge, No Vision Changes Cardiovascular : No Chest Pain, complaining of chronic chest tightness,No SOB, No Dyspnea on Exertion, No Orthopnea, No Edema, No Palpitations Respiratory : No Cough, No Sputum, No Wheezing, No Smoke Exposure, dyspnea at baseline, uses 3 L of O2 at home Gastrointestinal : No Nausea, No Vomiting, No Diarrhea, No Constipation, No abdominal Pain, No Hematochezia, No Melena Genitourinary : no irregular bleeding, No Dysuria, No Urinary Frequency, No Hematuria, No Urinary Incontinence, No Urgency, No Flank Pain, No Urinary Flow Changes, No Hesitancy Musculoskeletal : No joint pain, No Myalgias, No Joint Swelling Skin : No Skin Lesions, No rash Neuro : No Weakness, No Numbness, No Paresthesias, No Loss of Consciousness, No Dizziness, No Headache Psych : No Anxiety/Panic, No Depression, No SI/HI/AH/VH, No Social Issues, Heme/Lymph: No Bruising, No Bleeding,No Lymphadenopathy Endocrine : No Polyuria, No Polydipsia, No Temperature Intolerance [facility] Past Medical History Medical History Breast cancer Chronic hypercapnic respiratory failure Chronic pain COPD (chronic obstructive pulmonary disease) COPD (chronic obstructive pulmonary disease) Depression Fibromyalgia Hypoxia Smoking addiction Substance abuse Surgical History H/O mastectomy Family History Family History Father No problems noted. Mother No problems noted. Social History Social History Household Members: Children Household Members Other:: Son Housing: Apartment Do you presently have visiting nurse or other home services: No Alcohol intake: current Alcohol intake frequency: holidays/special occasions only Patient Tobacco Use Status: Current everyday Tobacco user Tobacco use type: Cigarette Cigarette Packs Per Day: 1.5 Cigarettes Per Day: 30.0 Years Smoked: 50 Second Hand Smoke Exposure: Yes Substance Use Type: Heroin and Other Advance Directives: Yes Advance Directives on File: Yes Advance Directives Date on File: 04/05/20 service: No Current occupational status: unemployed and disabled Physical Exam Vital Signs: Vital Signs: Last Vital Signs Temp 97.4 F 12/21/20 19:17 Pulse 95 12/21/20 19:17 Resp 20 12/21/20 19:17 BP 170/92 H 12/21/20 19:17 Pulse Ox 96 12/21/20 19:17 Oxygen Flow Rate 3 12/21/20 19:17 Body Mass Index 23.1 Appearance: Alert. Oriented X3. No acute distress. Eyes: Pupils equal, round and reactive to light. ENT: Pharynx normal. Neck: Normal inspection. Neck supple. No lymph nodes noted. No crepitus CVS: Normal heart rate and rhythm. Pulses normal. Normal S1 and S2 Respiratory: No respiratory distress. using 3 L at baseline, diminished breath sounds bilaterally and bilateral wheezing. Abdomen: Soft and nontender. No rigidity. No distention. good BS x4 Skin: Skin warm and dry. Normal skin color. Normal skin turgor. Extremities: No lower extremity edema. No Lacerations. No Rash Neuro: Oriented X 3. No motor deficit. No sensory deficit. Moving all extermities. No slurred speech. Course Course Course Narrative: patient's troponin is 6.2, it is at baseline. Patient has no symptoms at this time, is at baseline using 3 L oxygen. We offered the patient to repeat the troponin at this time, patient refused. Patient is being sent back to the [facility] Medical Decision Making Lab Data Result diagrams: 12/21/20 20:35 12/21/20 20:35 Labs: Lab Results 12/21/20 12/21/20 12/21/20 Range/Units 20:35 20:35 20:35 WBC 14.6 H (4.8-10.8) X10*3/uL RBC 4.76 (4.20-5.50) X10*6/uL Hgb 14.2 (12.0-16.0) g/dl Hct 45.1 (37-47) % MCV 94.7 (80-98) fL MCH 29.8 (27.0-33.0) pg MCHC 31.5 (31.0-35.0) g/dl RDW 15.3 (11.0-16.0) % Plt Count 287 (160-400) X10*3/uL MPV 8.1 L (9.4-12.3) fL Immature Gran % (Auto) 1.5 H (0.0-0.4) % Neut % (Auto) 78.2 H (45-73) % Lymph % (Auto) 13.4 L (20-40) % Toombs % (Auto) 6.7 (2-11) % Eos % (Auto) 0.1 (0-4) % Baso % (Auto) 0.1 (0-2) % Lymph # (Auto) 2.0 (1.2-4.9) X10*3/uL Toombs # (Auto) 1.0 (0.1-1.2) X10*3/uL Eos # (Auto) 0.0 (0.0-0.4) X10*3/uL Baso # (Auto) 0.0 (0.0-0.2) X10*3/uL Abs Immat Gran (auto) 0.22 H (0.00-0.03) X10*3/uL Absolute Neuts (auto) 11.4 H (2.0-8.3) X10*3/uL Absolute Nucleated RBC 0.000 (0.0-0.012) X10*3/uL Nucleated RBC % (auto) 0.0 (0.0-0.2) /100WBC Sodium 141 (135-145) mmol/L Potassium 4.3 (3.3-5.1) mmol/L Chloride 99 (96-108) mmol/L Carbon Dioxide 36 H (22-29) mmol/L Anion Gap 10 L (12-20) BUN 32 H (9-16) mg/dL Creatinine 0.73 (0.5-1.4) mg/dL Estim Creat Clear Calc 61.0 Estimated GFR > 60 Random Glucose 130 H (60-115) mg/dL Lactic Acid 1.2 (0.5-2.0) mmol/L Calcium 9.2 (8.4-10.2) mg/dL Total Bilirubin 0.3 (0.0-1.0) mg/dL Direct Bilirubin < 0.2 (0.0-0.5) mg/dL AST 12 (5-31) U/L ALT 11 (0-31) U/L Alkaline Phosphatase 80 (39-117) U/L Troponin I High Sens (<3.5-17.0) ng/L B-Natriuretic Peptide (<100) pg/mL Total Protein 6.6 (6.5-8.0) g/dL Albumin 3.7 (3.5-5.0) g/dL 12/21/20 Range/Units 20:35 WBC (4.8-10.8) X10*3/uL RBC (4.20-5.50) X10*6/uL Hgb (12.0-16.0) g/dl Hct (37-47) % MCV (80-98) fL MCH (27.0-33.0) pg MCHC (31.0-35.0) g/dl RDW (11.0-16.0) % Plt Count (160-400) X10*3/uL MPV (9.4-12.3) fL Immature Gran % (Auto) (0.0-0.4) % Neut % (Auto) (45-73) % Lymph % (Auto) (20-40) % Toombs % (Auto) (2-11) % Eos % (Auto) (0-4) % Baso % (Auto) (0-2) % Lymph # (Auto) (1.2-4.9) X10*3/uL Toombs # (Auto) (0.1-1.2) X10*3/uL Eos # (Auto) (0.0-0.4) X10*3/uL Baso # (Auto) (0.0-0.2) X10*3/uL Abs Immat Gran (auto) (0.00-0.03) X10*3/uL Absolute Neuts (auto) (2.0-8.3) X10*3/uL Absolute Nucleated RBC (0.0-0.012) X10*3/uL Nucleated RBC % (auto) (0.0-0.2) /100WBC Sodium (135-145) mmol/L Potassium (3.3-5.1) mmol/L Chloride (96-108) mmol/L Carbon Dioxide (22-29) mmol/L Anion Gap (12-20) BUN (9-16) mg/dL Creatinine (0.5-1.4) mg/dL Estim Creat Clear Calc Estimated GFR Random Glucose (60-115) mg/dL Lactic Acid (0.5-2.0) mmol/L Calcium (8.4-10.2) mg/dL Total Bilirubin (0.0-1.0) mg/dL Direct Bilirubin (0.0-0.5) mg/dL AST (5-31) U/L ALT (0-31) U/L Alkaline Phosphatase (39-117) U/L Troponin I High Sens 6.2 (<3.5-17.0) ng/L B-Natriuretic Peptide 43 (<100) pg/mL Total Protein (6.5-8.0) g/dL Albumin (3.5-5.0) g/dL Imaging Data Chest x-ray: Radiologist's impression: FINDINGS: No significant abnormality is noted involving the heart, lungs, mediastinum, bony thorax or soft tissues. XR/XR chest 1V IMPRESSION: Unremarkable examination. ECG Data Attestation: I personally reviewed and interpreted this ECG as follows: ( normal sinus rhythm, heart rate 99, no ST segment depression or elevation, no T-wave inversion, QTC 423) Discharge Plan Discharge Clinical Impression: Chest tightness Patient Disposition: Home, Self-Care Instructions: COPD (Chronic Obstructive Pulmonary Disease) (ED) Additional Instructions: Please follow-up with your primary care physician tomorrow. If you have any worsening or new symptoms, please return to the emergency room or call 911 Prescriptions: No [facility] albuterol sulfate [ProAir HFA] 90 mcg/actuation HFA aerosol inhaler 1 inh inhalation Q4H RF: 0 (DME) nebulizer and compressor Device See Rx Instructions .ROUTE .MEDSUPPLY Qty: 1 RF: 0 Advil PM 400 mg BEDTIME RF: 0 nicotine 14 mg/24 hr Patch 24 Hour 14 mg transdermal DAILY 30 Days RF: 0 amlodipine 5 mg Tablet 5 mg PO DAILY 30 Days Qty: 30 RF: 0 Mucinex DM 30-600 mg Tablet Extended Release 12 Hr 2 tab PO BID 10 Days Qty: 40 RF: 0 Spiriva with HandiHaler 18 mcg Capsule, W/Inhalation Device 18 mcg inhalation RDAILY 30 Days Qty: 30 RF: 0 Breo Ellipta 200-25 mcg/dose Blister With Device 1 puff inhalation RDAILY 30 Days RF: 0 prednisone 10 mg tablet See Taper mg PO DAILY Qty: 30 RF: 0 prednisone 20 mg tablet 40 mg PO DAILY Qty: 8 RF: 0 ipratropium-albuterol 0.5 mg-3 mg(2.5 mg base)/3 mL Solution For Nebulization 3 ml inhalation TID-QID PRN (Reason: sob) 7 Days RF: 0 buprenorphine-naloxone [Suboxone] 8-2 mg film 2 film sublingual DAILY 7 Days Qty: 14 RF: 1
[2020-12-21 20:53] LABS: MANUAL DIFF FLAG NO
[2020-12-21 20:59] LABS: Basophils Percent Auto 0.1 % (0-2); Eosinophils Percent Auto 0.1 % (0-4); Hematocrit 45.1 % (37-47); Hemoglobin 14.2 g/dl (12.0-16.0); Imm Gran Abs Auto 0.22 X10*3/uL (0.00-0.03); Imm Gran Pct Auto 1.5 % (0.0-0.4); Lymphocytes Percent Auto 13.4 % (20-40); Mean Corpuscular HGB Conc 31.5 g/dl (31.0-35.0); Mean Corpuscular Hemoglobin 29.8 pg (27.0-33.0); Mean Corpuscular Volume 94.7 fL (80-98); Mean Platelet Volume 8.1 fL (9.4-12.3); Monocytes Percent Auto 6.7 % (2-11); Neutrophils Absolute Auto 11.4 X10*3/uL (2.0-8.3); Neutrophils Percent Auto 78.2 % (45-73); Platelet Count 287 X10*3/uL (160-400); Red Blood Count 4.76 X10*6/uL (4.20-5.50); Red Cell Distribution Width 15.3 % (11.0-16.0); White Blood Count 14.6 X10*3/uL (4.8-10.8)
[2020-12-21 21:18] LABS: Lactic Acid 1.2 mmol/L (0.5-2.0)
[2020-12-21 21:22] LABS: Alanine Aminotransferase 11 U/L (0-31); Albumin Level 3.7 g/dL (3.5-5.0); Alkaline Phosphatase 80 U/L (39-117); Anion Gap 10 (12-20); Aspartate Amino Transferase 12 U/L (5-31); Bilirubin Direct < 0.2 mg/dL (0.0-0.5); Bilirubin Total 0.3 mg/dL (0.0-1.0); Blood Urea Nitrogen 32 mg/dL (9-16); Calcium 9.2 mg/dL (8.4-10.2); Carbon Dioxide 36 mmol/L (22-29); Chloride 99 mmol/L (96-108); Estimated Glomerular Filt Rate > 60; Glucose Random 130 mg/dL (60-115); Potassium 4.3 mmol/L (3.3-5.1); Sodium 141 mmol/L (135-145); Total Protein 6.6 g/dL (6.5-8.0)
[2020-12-21 21:25] LABS: B Type Natriuretic Peptide 43 pg/mL (<100); Troponin-I High Sensitivity 6.2 ng/L (<3.5-17.0)
[2020-12-21 22:00] VITALS: BP 157/82; PULSE 90; RESP 18; O2SAT 96
[2020-12-22] VITALS: BP 160/78; PULSE 93; RESP 18; TEMP 36.8; O2SAT 97
--- NOTE | 2020-12-22 00:05 | PC.NURSE ---
Patient refused repeat Troponin level. Denies pain. Denies complaints. Requested and given ice water. Plan to discharge back to [facility].
--- NOTE | 2020-12-22 01:51 | PC.NURSE ---
Spoke with VANCE Christopher at [facility]. Aware of plan to discharge patient back to this facility. Facility accepts return of the patient.
--- NOTE | 2020-12-22 03:01 | PC.NURSE ---
This RN attempted to contact the patient's son (Adriel Aguayo) listed on file. No answer, unable to leave voicemail left due to 'full mailbox'. Patient initially refused transfer to [facility] due to malfunctioning air conditioning at facility. Viviana WOODARD & Allan ([employer]) to bedside to speak with patient, as well as . Viviana WOODARD called [facility] to inquire about AC, [facility] staff ensures that AC is working well. Pt reassured, now agrees to transfer back to [facility]. Pt ambulates with steady gait, remains on baseline oxygen via nasal cannula. Transferred by [facility].
[2020-12-22 07:43] LABS: VBG pH 7.41 (7.32-7.43); VBG pO2 90 mmHg
== END 2020-12-22 03:07 | disposition skilled nursing facility (03) ==
PROVIDERS: Emergency Provider Emergency Medicine
DX: R07.89 Other chest pain (principal); J44.9 Chronic obstructive pulmonary disease, unspecified; J96.12 Chronic respiratory failure with hypercapnia; Z79.899 Other long term (current) drug therapy; Z99.81 Dependence on supplemental oxygen
CPT/HCPCS: 36415; 71045; 80048; 80076; 83605; 83880; 84484; 85025; 87040; 93005; 99284; 99285

== ENCOUNTER → 2020-12-28 16:03 | Outpatient (BNVA) | payer MEDICARE, SELFPAY | PROVIDERS: Visit Provider Internal Medicine | DX: F11.20 Opioid dependence, uncomplicated (principal); Z79.899 Other long term (current) drug therapy | CPT/HCPCS: Q3014 ==

== ENCOUNTER → 2021-04-26 10:31 | Outpatient (BNVA) | payer MEDICARE, SELFPAY | PROVIDERS: Visit Provider Internal Medicine | DX: F11.20 Opioid dependence, uncomplicated (principal) | CPT/HCPCS: 80305; 99212 ==

== ENCOUNTER → 2021-06-30 14:10 | Outpatient (BNVA) | payer MEDICARE, SELFPAY | PROVIDERS: Visit Provider Internal Medicine | DX: F11.20 Opioid dependence, uncomplicated (principal); Z51.81 Encounter for therapeutic drug level monitoring; Z79.899 Other long term (current) drug therapy | CPT/HCPCS: 80305; 99212 ==

== ENCOUNTER → 2021-09-01 10:57 | Outpatient (BNVA) | payer MEDICARE, SELFPAY | PROVIDERS: Visit Provider Internal Medicine | DX: Z51.81 Encounter for therapeutic drug level monitoring (principal); F11.20 Opioid dependence, uncomplicated | CPT/HCPCS: 80305; 99212 ==

== ENCOUNTER → 2021-12-06 15:12 | Outpatient (BNVA) | payer MEDICARE, MEDICAID, SELFPAY | PROVIDERS: PCP Family Medicine Geriatric Medicine; Visit Provider Internal Medicine | DX: F11.20 Opioid dependence, uncomplicated (principal) | CPT/HCPCS: 80305; 99212 ==

== ENCOUNTER → 2022-01-03 11:14 | Outpatient (BNVA) | payer MEDICARE, MEDICAID, SELFPAY | PROVIDERS: Visit Provider Internal Medicine | DX: F11.20 Opioid dependence, uncomplicated (principal) | CPT/HCPCS: 80305; 99212 ==

== ENCOUNTER → 2022-02-28 11:38 | Outpatient (BNVA) | payer MEDICARE, MEDICAID, SELFPAY | PROVIDERS: Visit Provider Internal Medicine | DX: F11.20 Opioid dependence, uncomplicated (principal); Z51.81 Encounter for therapeutic drug level monitoring; Z79.899 Other long term (current) drug therapy | CPT/HCPCS: 80305; 99212 ==

== ENCOUNTER → 2022-06-14 09:11 | Outpatient (BNVA) | payer MEDICARE, MEDICAID, SELFPAY | PROVIDERS: Visit Provider Nurse Practitioner Psychiatric/Mental Health | DX: F11.20 Opioid dependence, uncomplicated (principal) | CPT/HCPCS: Q3014 ==

== ENCOUNTER → 2022-08-09 09:04 | Outpatient (BNVA) | payer MEDICARE, MEDICAID, SELFPAY | PROVIDERS: Visit Provider Nurse Practitioner Psychiatric/Mental Health | DX: F11.20 Opioid dependence, uncomplicated (principal) | CPT/HCPCS: Q3014 ==

== ENCOUNTER → 2022-11-20 08:58 | Outpatient (BNVA) | payer MEDICARE, MEDICAID, SELFPAY | PROVIDERS: Visit Provider Nurse Practitioner Psychiatric/Mental Health | DX: F11.20 Opioid dependence, uncomplicated (principal) | CPT/HCPCS: Q3014 ==

== ENCOUNTER → 2022-12-17 09:02 | Outpatient (BNVA) | payer MEDICARE, MEDICAID, SELFPAY | PROVIDERS: Visit Provider Nurse Practitioner Psychiatric/Mental Health | DX: F11.20 Opioid dependence, uncomplicated (principal) | CPT/HCPCS: Q3014 ==

== ENCOUNTER 2023-03-11 09:09 | Outpatient (AMB) | payer MEDICARE, MEDICAID, SELFPAY ==
--- NOTE | 2023-03-11 09:09 | A.OFFVIS_ITS ---
Intake Intake Visit Reasons: MAT Visit Allergies No Known Allergies [No Known Allergies*] Allergy (Verified 02/28/22 11:54) HPI MAT Visit HPI Details Patient presents for telehealth follow up Currently prescribed Suboxone 8mg BID Reports she has been experiencing panic attacks --has medication to help with that Reporting increasing depressive sx, --sadness inside. [facility] Medical History Breast cancer Chronic hypercapnic respiratory failure Chronic pain COPD (chronic obstructive pulmonary disease) COPD (chronic obstructive pulmonary disease) Depression Fibromyalgia Hypoxia Smoking addiction Substance abuse Surgical History H/O mastectomy Family History Father No problems noted. Mother No problems noted. Social History Household Members: Children and Caregiver Household Members Other:: Son Housing: Apartment Do you presently have visiting nurse or other home services: No Alcohol intake: current Alcohol intake frequency: holidays/special occasions only Patient Tobacco Use Status: Current everyday Tobacco user Tobacco use type: Cigarette Cigarette Packs Per Day: 1.5 Cigarettes Per Day: 30.0 Years Smoked: 50 Second Hand Smoke Exposure: Yes Substance Use Type: Heroin and Other Advance Directives Date on File: 04/05/20 service: No Current occupational status: unemployed and disabled Review of Systems Const Reports as per HPI Assessment & Plan Assessment & Plan (1) Opioid use, unspecified with unspecified opioid-induced disorder: Code(s): F11.99 - Opioid use, unspecified with unspecified opioid-induced disorder Plan: * continue suboxone at current dose * RN to reach our to facility and report depressive sx * follow up 3 months Telehealth Telehealth Location of provider rendering services: practice address Location of patient: address on file Patient Identification confirmed using: Name, : Yes Telehealth method: voice only Patient verbally consented to treatment: Yes Patient verbally consented to billing insurance company: Yes Coding Level of Care Code Tele Est Pt Level 3 (69244) Diagnoses Opioid use, unspecified with unspecified opioid-induced disorder F11.99 Time Spent (min) 20 Comment 15 mins with pt reminder on chart review and documentation
== END 2023-03-11 11:52 | disposition home or self-care (01) ==
LOC: HO.HCC 09:09
PROVIDERS: Visit Provider Nurse Practitioner Psychiatric/Mental Health
DX: F11.90 Opioid use, unspecified, uncomplicated (principal)
CPT/HCPCS: 99442

== ENCOUNTER → 2023-03-11 09:09 | Outpatient (BNVA) | payer MEDICARE, MEDICAID, SELFPAY | PROVIDERS: Visit Provider Nurse Practitioner Psychiatric/Mental Health | DX: F11.99 Opioid use, unspecified with unspecified opioid-induced disorder (principal) ==

== ENCOUNTER 2023-06-03 09:07 | Outpatient (AMB) | payer MEDICARE, MEDICAID, SELFPAY ==
--- NOTE | 2023-06-03 13:06 | A.OFFVIS_ITS ---
Intake Intake Visit Reasons: MAT Visit Allergies No Known Allergies [No Known Allergies*] Allergy (Verified 02/28/22 11:54) HPI MAT Visit HPI Details Patient presents for follow up via telehealth Resides at [facility] --no issues with suboxone, however reporting that she is feeling depressed limited visitors--her son is the only one and he has been working a lot and hasn't been to see her in a few weeks [facility] Medical History (Updated 06/05/23 @ 11:58 by Trisha Du CNP) Opioid use, unspecified with unspecified opioid-induced disorder Chronic hypercapnic respiratory failure Smoking addiction Depression Substance abuse Chronic pain Breast cancer Hypoxia COPD (chronic obstructive pulmonary disease) Fibromyalgia COPD (chronic obstructive pulmonary disease) Surgical History H/O mastectomy Family History Father No problems noted. Mother No problems noted. Social History Household Members: Children and Caregiver Household Members Other:: Son Housing: Apartment Do you presently have visiting nurse or other home services: No Alcohol intake: current Alcohol intake frequency: holidays/special occasions only Comment: tele sitter added at this time Patient Tobacco Use Status: Current everyday Tobacco user Tobacco use type: Cigarette Cigarette Packs Per Day: 1.5 Cigarettes Per Day: 30.0 Years Smoked: 50 Second Hand Smoke Exposure: Yes Substance Use Type: Heroin and Other Advance Directives Date on File: 04/05/20 service: No Current occupational status: unemployed and disabled Review of Systems Const Reports as per HPI Assessment & Plan Assessment & Plan (1) Opioid use disorder, moderate, in sustained remission, dependence: Code(s): F11.21 - Opioid dependence, in remission Plan: * continue suboxone at current dose * follow up 4 weeks via telehealth * will request updated medication list to determine medication for depression Telehealth Telehealth Location of provider rendering services: practice address Location of patient: address on file Patient Identification confirmed using: Name, : Yes Telehealth method: voice only Patient verbally consented to treatment: Yes Patient verbally consented to billing insurance company: Yes Coding Level of Care Code Tele Est Pt Level 4 (56515) Diagnoses Opioid use disorder, moderate, in sustained remission, dependence F11.21 Time Spent (min) 30 Comment 20 mins with patient remainder on chart review and documentation
== END 2023-06-03 14:14 | disposition home or self-care (01) ==
PROVIDERS: Visit Provider Nurse Practitioner Psychiatric/Mental Health
DX: F11.21 Opioid dependence, in remission (principal)
CPT/HCPCS: 99442

== ENCOUNTER → 2023-06-03 09:07 | Outpatient (BNVA) | payer MEDICARE, MEDICAID, SELFPAY | PROVIDERS: Visit Provider Nurse Practitioner Psychiatric/Mental Health | DX: F11.99 Opioid use, unspecified with unspecified opioid-induced disorder (principal) ==